=== PATIENT | male | born 1945 | race Caucasian/White ===

== ENCOUNTER 2023-12-26 04:27 | Emergency (ER) | payer MEDICARE, OTHER, SELFPAY ==
[2023-12-26 04:30] VITALS: BP 138/84
[2023-12-26 04:54] VITALS: BMI 27.7
[2023-12-26 05:07] VITALS: BP 135/77
[2023-12-26 06:00] VITALS: BP 128/81
--- NOTE | 2023-12-26 06:05 | ED.GENMED ---
History of Present Illness
General
Chief Complaint: Skin Problem
Time Seen by Provider: 12/26/23 04:57
Travel History
Have you had any contact with someone who has COVID-19?: No
Do you have any symptoms of coronavirus? Fever > 100 degrees, chills, cough, shortness of breath, sore throat, loss of taste or smell, muscle aches, or headache?: No
History of Present Illness
History of Present Illness:
HPI: The patient presents with bilateral arm pain, pain to the back of the neck, but no chest pain. He thinks his symptoms could be related to neuropathic type pain. His primary care doctor put him on gabapentin 100 mg twice a day but then
increased it to 300 mg last evening at 10 PM. He states that he cannot sleep but the says that he has been sleeping while in the ED. He did have some concern for disseminated shingles. He also had a GI bleed while on Eliquis for A-fib a
couple of months ago. He has been having trouble sleeping. He states he had unremarkable blood work recently.
EXAM:
GENERAL: Well appearing in no distress, resting comfortably
HEENT: Moist oral mucosa
CARDIOVASCULAR: No murmurs, normal heart rate, regular rhythm, No chest wall tenderness
PULMONARY: No respiratory distress, breath sounds are clear and equal
ABDOMEN: Soft with no peritoneal signs, no tenderness
NEUROLOGIC: Excellent strength all extremities, no coordination deficits, strong distal peripheral nerve function to the upper extremities
PSYCHIATRIC: Appropriate mental status, normal insight and judgement
EXTREMITIES: Nontender, no edema, moves all extremities equally, strong radial pulses bilaterally
SKIN: No rash, no lesions, no evidence for shingles
TIME OF INITIAL ENCOUNTER: 6:05 AM
NUMBER AND COMPLEXITY OF PROBLEMS ADDRESSED AT THE ENCOUNTER
� Chronic conditions affecting care: History of A-fib, hyperlipidemia, GERD, has had PE
� Acute Exacerbation and/or Progression of Chronic Illness: This is an acute problem
� Differential Diagnosis includes: Neuropathy, cervical radiculopathy
AMOUNT AND/OR COMPLEXITY OF DATA TO BE REVIEWED AND ANALYZED
� I performed an independent evaluation of and my interpretation is:
EKG: Sinus 63, left axis deviation, lateral ST abnormality however this is unchanged from 05/12/2022, otherwise there are no new ST abnormalities
CT:
X-rays:
Laboratory Studies:
Other:
� Review of other/old records: The patient was here in 2021 with appendicitis
� Clinical information was obtained by an independent historian: I spoke to the at bedside at bedside
� Prescriptions/Medications Considered but not given: Consider steroids however the patient had a recent GI bleed and he wishes to hold off on steroids
� Further testing considered but not performed: No clear indication for MRI at this time as he has excellent motor function in all extremities. Offered and considered blood work over the patient declines stating that his recent
blood work including B12 levels
RISK OF COMPLICATIONS AND/OR MORBIDITY OR MORTALITY OF PATIENT MANAGEMENT
� Social determinants of health affecting care: Lives at home
� Discussion with other providers:
� Escalation of care including admission/observation vs risk of discharge considered: The patient appears to have neuropathic type of pain. He has no chest pain but EKG will be obtained as he has bilateral arm discomfort. He
has excellent function in all extremities. He has already increased his gabapentin appears very comfortable. Will hold off on steroids. I suggest that he try Tylenol as well. We also talked about possibly trying Benadryl/doxylamine for sleep at
night. EKG is unchanged from prior.
Past History
Past History
ED Past Medical History: GERD and Hypercholesterolemia
ED Past Surgical History: None
Social History
Tobacco: Non-smoker
Alcohol: None
Drug: None
Personal:
Living: with family
Employment: Retired
Phy Exam
Physical Exam
Physical Exam:
See HPI
Course
Orders/Labs/Results
Orders:
Orders
12/26/23 06:25
Electrocardiogram (*1) Urgent
Reason for Study: Chest Pain
EKG- Treatment ONCE
Vital Signs
Initial and Last Documented VS:
Initial Vital Signs
Temp Pulse Resp BP Pulse Ox
97.5 F 64 22 138/84 96
12/26/23 04:30 12/26/23 04:30 12/26/23 04:30 12/26/23 04:30 12/26/23 04:30
Last Documented Vital Signs
Temp Pulse Resp BP Pulse Ox
97.5 F 60 18 128/81 94
12/26/23 04:30 12/26/23 06:00 12/26/23 06:00 12/26/23 06:00 12/26/23 06:00
*Critical Care Note
Total Time (30-74mins, 75-104mins- exclusive of procedures): Not Applicable
ED Attending Note
-
Portions of this chart may have been created with voice recognition software.� Occasional wrong word or��sound alike� substitutions may have occurred due to the inherent limitations of voice recognition software.
Discharge Plan
Departure
Patient Disposition: Home (Routine Discharge)
Date of Disposition: 12/26/23
Time of Disposition: 06:39
Patient with high blood pressure during this ER visit?: Yes
Discharge Problem:
Neuropathic pain
Instructions: Neuropathic pain
Prescriptions:
No Action
multivitamin Tablet
1 tab PO DAILY
atorvastatin 10 mg Tablet
10 mg PO DAILY
coQ10 (ubiquinol) 100 mg Capsule
300 mg PO DAILY
pantoprazole 40 mg Tablet,Delayed Release (Dr/Ec)
40 mg PO BID
metoprolol succinate 25 mg Tablet Extended Release 24 Hr
12.5 mg PO HS
gabapentin 100 mg Tablet
100 mg PO BID
Rx Instructions:
MAY TAKE UP TO 300 BID
Eliquis 5 mg Tablet
5 mg PO BID
Referrals:
Jeffery Bustamante MD [Family Provider] -
Activity Restrictions/Additional Instructions:
The cause of your symptoms is unclear but may be related to her neuropathy. I recommend that you continue the 300 mg dose of gabapentin. You could also add Tylenol as well. Follow-up with your PMD and neurology.
Interventions
Interventions:
*Risk Screen - Suicide Last Done: 12/26/23 04:30
*General Assessment Last Done: 12/26/23 04:54
*Neglect/Abuse Screening Last Done: 12/26/23 04:30
ED- Fall Risk Assessment Last Done: 12/26/23 04:54
*ED COVID-19 Vaccine History Last Done: 12/26/23 04:54
ED-Skin Assessment Last Done: 12/26/23 04:54
Discharge Date and Time
Print Language: THAI
[2023-12-26 06:49] VITALS: BP 131/91
== END 2023-12-26 06:50 | disposition home or self-care (01) ==
LOC: EMR 04:27
PROVIDERS: EMERGENCY PHYSICIAN Emergency Medicine; FAMILY PHYSICIAN Family Medicine
DX: M79.2 Neuralgia and neuritis, unspecified (principal); K21.9 Gastro-esophageal reflux disease without esophagitis; E78.00 Pure hypercholesterolemia, unspecified; I48.91 Unspecified atrial fibrillation; Z79.01 Long term (current) use of anticoagulants; Z79.899 Other long term (current) drug therapy
CPT/HCPCS: 99283; 93005

== ENCOUNTER 2024-01-14 11:27 | Inpatient (IN) | payer MEDICARE, OTHER, SELFPAY ==
[2024-01-14] VITALS (50 sets, daily range): BP systolic 68–112; BP diastolic 54–85; BMI 29.3
[2024-01-14 08:47] LABS: % Basophils 0.3 % (0-2); % Immature Granulocytes 0.4 % (0-0.5); % Lymphocytes 23.1 % (20.5-51.1); % Monocytes 6.8 % (1.7-9.3); % Neutrophils 68.4 % (42.2-75.2); Absolute Eosinophils 0.1 10^3/uL (0-0.7); Absolute Lymphocytes 1.6 10^3/uL (1.2-3.4); Absolute Monocytes 0.5 10^3/uL (0.1-0.6); Absolute Neutrophils 4.7 10^3/uL (1.4-6.5); Hematocrit 46.6 % (39.0-52.0); Hemoglobin 15.8 g/dL (13.0-18.0); Mean Corp Hgb Conc. 33.9 g/dL (33.0-37.0); Mean Corpuscular Hgb 28.6 pg (27.0-31.0); Mean Corpuscular Volume 84.4 fL (80.0-94.0); Mean Platelet Volume 9.1 fL (7.4-10.4); Nucleated Red Blood Cells % 0 % (-); Platelet Count 333 10^3/uL (130-400); Red Blood Cell Count 5.52 10^6/uL (4.70-6.10); Red Cell Dist. Width 13.3 % (11.5-14.5); White Blood Cell Count 6.8 10^3/uL (4.8-10.8)
--- NOTE | 2024-01-14 08:53 | ED.GENMED ---
History of Present Illness
General
Chief Complaint: Breathing Problem
Source: patient and spouse
Time Seen by Provider: 01/14/24 07:44
Travel History
Have you had any contact with someone who has COVID-19?: No
Do you have any symptoms of coronavirus? Fever > 100 degrees, chills, cough, shortness of breath, sore throat, loss of taste or smell, muscle aches, or headache?: No
History of Present Illness
History of Present Illness:
78-year-old male who presents with a variety of complaints but most notably concerned about an 8 pound weight gain this week. Patient saw his primary care doctor a few days ago with cough and feeling weak. Primary care doctor heard some crackles
and started on antibiotics for pneumonia. He admits that his heart rate has been up and down and he was told to hold his metoprolol. Patient admits that he has had increasing shortness of breath with exertion. He also has felt generally weak. He
does have a history of pulmonary embolism and it was suspected that he had atrial fibrillation while he had his PEs. He is on Eliquis and has not missed any doses. He denies fevers. He denies leg swelling. No noted fever. The patient has also
been dealing with neuropathic symptoms and has seen neurology.
Past History
Past History
ED Past Medical History: Arrthythmia (Atrial fibrillation), GERD, Hypercholesterolemia and Other (Pulmonary embolism)
ED Past Surgical History: Appendectomy
Social History
Tobacco: Non-smoker
Alcohol: None
Drug: None
Personal:
Living: with family
Employment: Retired
Phy Exam
Physical Exam
Physical Exam:
CONSTITUTIONAL Patient alert and oriented to person, place and time. Well-appearing. Vital signs reviewed.
HEAD atraumatic, normocephalic.
EYES eyelids normal to inspection, Pupils equally round and reactive to light, Extraocular muscles intact, Conjunctiva normal, Sclera normal.
NECK normal range of motion, Trachea midline, no jugular venous distention.
RESPIRATORY CHEST No respiratory distress noted, Chest expansion equal, crackles at bilateral bases
CARDIOVASCULAR irregularly irregular and tachycardic
ABDOMEN abdomen nontender, Bowel sounds normal. No distention.
BACK normal inspection, no obvious deformities
UPPER EXTREMITY range of motion normal, Motor strength normal, no cyanosis, no edema.
LOWER EXTREMITY range of motion normal, Motor strength normal, no cyanosis, no edema.
NEURO Speech normal, No focal motor deficits, [place] coma scale 15, Memory normal, Cranial Nerves intact to screening exam.
SKIN skin warm, dry, and normal in color.
PSYCHIATRIC patient oriented to person place and time, Normal affect.
Scores
Heart Failure Risk
Heart Failure Risk Score: Yes
History of Stroke or TIA: No
History of intubation for respiratory distress: No
Heart rate on ED arrival >/= 110: Yes
SaO2 <90% on arrival on room air: No
HR >/=110 during 3min walk test (or too ill to perform test): Yes
ECG has acute ischemic changes: No
Urea >/=12mmol/L (BUN 33.6mg/dL): No
Serum CO2>/=35mmol/L: No
Troponin I or T elevated to ME Level (0.4mg/dL): No
NT-proBNP >/=5,000ng/L (5,000pg/ml): Yes
HF Risk Score: 3
Admission Status: HIGH RISK 15.9% Consider SNF treatment or admission to hospital
Course
Orders/Labs/Results
Orders:
Orders
01/14/24 07:54
Electrocardiogram (*1) Stat
Reason for Study: Other
Other Reason for Exam: sob
Cardiac Monitoring- Treatment ONCE
EKG- Treatment ONCE
01/14/24 08:08
CR Chest - 2 Views Urgent
Comment:
Reason For Exam: cough, sob
01/14/24 08:30
Complete Blood Count/With Diff Urgent
Comprehensive Metabolic Panel Urgent
NT-proBNP Urgent
Troponin I Urgent
01/14/24 08:53
Diltiazem 125 mg/125 ml Nss [Cardizem] 125 mg in 125 ml IV NOW
Initial dose in mg/hr, then titrate:: 5
Titrate to keep:: Heart rate 80-100 bpm
Titrate by mg/hr:: 5 mg/hr
Frequency of titrations (minutes):: 15
Maximum dose in mg/hr:: 15
Diltiazem HCl [Cardizem] 10 mg IV NOW STA
01/14/24 09:23
Vital Signs- Treatment ONCE
Frequency: q15m
01/14/24 10:39
Diltiazem HCl [Cardizem] 20 mg IV NOW STA
01/14/24 11:01
Admit/Transfer Patient As Directed
Co-Sign Provider:
Level of Care: Inpatient admission
Assign to:: IMU- Intermediate Care
Physician / Group: hosp
Diagnosis: A-fib with RVR
Reason for Hospitalization: A-fib with RVR
Expected length of stay greater than two midnights?: Yes
ELOS- Estimated Length of Stay in days: 3
I certify the patient meets the requirements for IP care: Yes
01/14/24 11:03
Code Status As Directed
Resuscitation Status: Full Code
01/14/24 11:11
Furosemide [Lasix] 20 mg IV NOW STA
Abnormal Lab Results
01/14/24
08:30
Sodium 129 L mmol/L
(135-145)
Potassium 5.2 H mmol/L
(3.5-5.1)
Chloride 94 L mmol/L
(98-107)
BUN 29 H mg/dl
(9-20)
Creatinine 1.4 H mg/dL
(0.7-1.3)
Glucose 110 H mg/dl
(70-99)
Troponin I 0.316 H* ng/ml
Albumin 3.3 L g/dl
(3.5-5.0)
01/14/24 08:30
01/14/24 08:30
Vital Signs
Initial and Last Documented VS:
Initial Vital Signs
Pulse Resp BP Pulse Ox
98 22 103/69 98
01/14/24 07:37 01/14/24 07:37 01/14/24 07:37 01/14/24 07:37
Last Documented Vital Signs
Temp Pulse Resp BP Pulse Ox
97.4 F 105 21 108/78 92
01/14/24 13:50 01/14/24 14:00 01/14/24 14:00 01/14/24 14:00 01/14/24 14:00
MDM/Problems Addressed
MDM/Problems Addressed:
Atrial fibrillation with RVR, congestive heart failure
*Radiology
Radiology exam reviewed: preliminary read by ED provider (Bilateral effusions, CHF)
*Pulse Oximetry
Patient hypoxic: no
*EKG
Interpreted by ED Provider?: Yes
Interpretation: abnormal
Comparison EKG: no comparison EKG present
Rate: tachycardiac
Rhythm: a-fib
[place]: normal axis
Ischemia: non-specific ST changes
*Child Welfare Social Worker Interpretation
Rate: tachycardiac
Interpretation: abnormal
Rhythm: a-fib
*Critical Care Note
Total Time (30-74mins, 75-104mins- exclusive of procedures): 45 minutes
Data Reviewed
Review of Other/Old Records Reveals: Other (Echocardiogram from August 2021 reviewed showing EF of 55 to 60%)
Source: patient
Prescriptions/Medications Considered But Not Given:
Consider digoxin. Will trial AV blockers and reassess
Further Testing Considered But Not Given:
Consider D-dimer patient already on Eliquis
Patient Management
Discussion with other providers: Hospitalist and Social Media Specialist
Escalation/DeEscalation of care consider admission/obs:
78-year-old male presents in rapid A-fib. Also suspect some congestive heart failure. Blood pressure sort of soft. At this point we will trial AV blockers to help that as rate slows down his time increases and his blood pressure comes up but will
Watch closely.
ED Attending Note
-
Portions of this chart may have been created with voice recognition software.� Occasional wrong word or��sound alike� substitutions may have occurred due to the inherent limitations of voice recognition software.
Discharge Plan
Departure
Patient Disposition: Admit
Date of Disposition: 01/14/24
Time of Disposition: 09:57
Admit to: Telemetry
Presentation/result/management discussed w/ accepting MD/DO: Hospitalist
Discharge Problem:
Atrial fibrillation with rapid ventricular response, CHF (congestive heart failure)
Interventions
Interventions:
*Risk Screen - Suicide Last Done: 01/14/24 07:37
*General Assessment Last Done: 01/14/24 07:37
*Neglect/Abuse Screening Last Done: 01/14/24 07:37
ED- Fall Risk Assessment Last Done: 01/14/24 08:04
*ED COVID-19 Vaccine History Last Done: 01/14/24 08:04
ED- Cardiac Assessment Last Done: 01/14/24 13:05
ED- Pulmonary Assessment Last Done: 01/14/24 08:04
[2024-01-14 09:09] LABS: ALT (SGPT) 23 U/L (0-50); AST (SGOT) 53 U/L (17-59); Albumin 3.3 g/dl (3.5-5.0); Alkaline Phosphatase 118 U/L (38-126); Blood Urea Nitrogen 29 mg/dl (9-20); Calcium 9.5 mg/dl (8.4-10.2); Carbon Dioxide 26 mmol/L (22-30); Chloride 94 mmol/L (98-107); Estimated Creatinine Clearance 43 ml/min; Glucose 110 mg/dl (70-99); Potassium 5.2 mmol/L (3.5-5.1); Sodium 129 mmol/L (135-145); Total Bilirubin 0.6 mg/dl (0.2-1.3); Total Protein 6.5 g/dl (6.3-8.2); eGFR 51.13
[2024-01-14 09:16] LABS: Troponin I 0.316 ng/ml
[2024-01-14 09:37] LABS: NT-proBNP 8830 pg/ml
[2024-01-14] MEDS: CARDIZEM 125 IV ×2 (09:37→20:12)
[2024-01-14] MEDS: CARDIZEM 10 MG IV (09:37)
[2024-01-14] MEDS: CARDIZEM 20 MG IV (10:51)
--- NOTE | 2024-01-14 11:14 | HPS.HSE ---
Family Physician
-
Family Physician: Jeffery Bustamante
Chief Complaint
-
Recent weight gain and treated by PCP for pneumonia last week
History of Present Illness
78-year-old male who presented to his primary care doctor approximately a week ago with cough and feeling weak and primary care doctor apparently had suspicion for underlying pneumonia he was placed on antibiotics in the form of Levaquin but has had
protracted continued coughing and noticed that his heart rate was up he had been told by his neurosurgical nurse practitioner to stop his metoprolol due to waxing and waning of his blood pressure throughout this. But then developed a increasing shortness of breath
especially on exertion. He is also feeling increasingly weak.
In September he had taken a trip down to [place] and on arrival there was noted to have a atypical chest pain that turned out to be consistent with subsegmental pulmonary emboli that by description underwent some form of thrombectomy unclear what
clot burden was at that time he may have also been diagnosed with a left lower extremity DVT that may have been precipitated by his lengthy trip he was told he was placed on Eliquis and has been on full anticoagulation since. Apparently at the time
of coming back from [place] he was noted to be back in sinus rhythm and there is no mention of any arrhythmia at the time of his presentation to his PCP this past week. He denies any fevers chills does relate some production of sputum that is
mostly clear but with some yellow flecks. In addition to the as noted above at the time of his diagnosis of PE he had another setback within that week and had to go back to a [facility] evaluation because he was noted to have an upper GI
bleed that turned out to be what by description it was a peptic ulcer and was treated with pantoprazole for which he remains on that he has had no recurrence of any dark or bloody stools since that time. In addition the patient has been having
complaints over the last several months of numbness and tingling in his arms and into his neck and was due to see neurology in follow-up ( Dr Pineda) and has a scheduled MRI in around February 04 this coming month. Believed to be of the cervical spine and
lumbar spine areas. He was originally prescribed amitriptyline for this but no result more recently has been on gabapentin and also no apparent results.
His most recent evaluation here at [facility] was in 2021 at which time he was diagnosed with initially a terminal ileitis turned out to be an acute appendix inflammation that required appendectomy by Dr. Lowery
Medical History
Past Medical History
Past Medical History: Reports Arrhythmia (Atrial fibrillation is seems to be recurrent but recently diagnosed in September at time of PE), GERD, HTN and Hypercholesterolemia
Additional Past Medical History:
Symptoms of neuropathy in his arms
History of peptic ulcer disease and bleeding after being placed on Eliquis in September
Past Surgical History: Reports Appendectomy and Tonsilectomy
Social History
Tobacco: Non-smoker
Alcohol: None
Drug: None
Personal:
Living: With Family
Employment: Retired
Family History
Family History: Not pertinent
Allergies / Home Medications
Allergies reflects when Allergies were last updated in [employer].
Home Medications with original date entered in [employer]
Allergy/Medication List:
Allergies
Allergy/AdvReac Type Severity Reaction Status Date / Time
No Known Allergies Allergy Verified 01/14/24 07:43
Home Medications
multivitamin 1 tab PO DAILY Supplement 05/11/22
atorvastatin 10 mg tablet 10 mg PO DAILY High cholesterol 05/12/22
coQ10 (ubiquinol) 100 mg capsule 300 mg PO DAILY 07/12/22
apixaban 5 mg tablet (Eliquis) 5 mg PO BID 12/26/23
gabapentin 100 mg tablet 100 mg PO BID 12/26/23
metoprolol succinate 25 mg tablet,extended release 24 hr 12.5 mg PO HS 12/26/23
pantoprazole 40 mg tablet,delayed release 40 mg PO BID 12/26/23
Review of Systems
-
History Source: Patient and Family
Constitutional: Reports Weight Gain (Weight gain of 8 pounds in last week) and Fatigue
EENT: Reports No Symptoms
Respiratory: Reports Cough
Cardiac: Reports No Symptoms
Abdomen/GI: Reports No Symptoms
Neurological: Reports Weakness and Numbness
Physical Exam
Vital Signs
Vital Signs
Pulse Resp BP Pulse Ox
124 28 100/78 96
01/14/24 10:51 01/14/24 10:01 01/14/24 10:51 01/14/24 10:01
Physical Exam
General: Well Developed
HEENT: NormoCephalic
Respiratory: Rales and Crackles
Cardiac: Irregular Rhythm and Tachycardia
GI: Soft and Non Tender
Skin: Warm
Neuro: Awake
Laboratory Results
-
01/14/24 08:30
01/14/24 08:30
Laboratory Results
Total Bilirubin 0.6 mg/dl (0.2-1.3) 01/14/24 08:30
AST 53 U/L (17-59) 01/14/24 08:30
ALT 23 U/L (0-50) 01/14/24 08:30
Alkaline Phosphatase 118 U/L (38-126) 01/14/24 08:30
Troponin I 0.316 ng/ml H* 01/14/24 08:30
Data Reviewed
-
Diagnostic Radiology: Image Personally Visualized and interpreted, Report Reviewed by me and Discussed with Physician
Lab Data: Labs Reviewed by me (proBNP over 8300/elevated troponin/0.316/creatinine up to 1.4 looks like his baseline is about 1.3 last taken 2021 BUN elevated 29/sodium 129)
Impression/Plan
-
78-year-old male who presented to his primary care doctor approximately a week ago with cough and feeling weak and primary care doctor apparently had suspicion for underlying pneumonia he was placed on antibiotics in the form of Levaquin but has had
protracted continued coughing and noticed that his heart rate was up he had been told by his neurosurgical nurse practitioner to stop his metoprolol due to waxing and waning of his blood pressure throughout this. But then developed a increasing shortness of breath
especially on exertion. He is also feeling increasingly weak.
In September he had taken a trip down to [place] and on arrival there was noted to have a atypical chest pain that turned out to be consistent with subsegmental pulmonary emboli that by description underwent some form of thrombectomy unclear what
clot burden was at that time he may have also been diagnosed with a left lower extremity DVT that may have been precipitated by his lengthy trip he was told he was placed on Eliquis and has been on full anticoagulation since. Apparently at the time
of coming back from [place] he was noted to be back in sinus rhythm and there is no mention of any arrhythmia at the time of his presentation to his PCP this past week. He denies any fevers chills does relate some production of sputum that is
mostly clear but with some yellow flecks. In addition to the as noted above at the time of his diagnosis of PE he had another setback within that week and had to go back to a [facility] evaluation because he was noted to have an upper GI
bleed that turned out to be what by description it was a peptic ulcer and was treated with pantoprazole for which he remains on that he has had no recurrence of any dark or bloody stools since that time. In addition the patient has been having
complaints over the last several months of numbness and tingling in his arms and into his neck and was due to see neurology in follow-up ( Dr Pineda) and has a scheduled MRI in around February 04 this coming month. Believed to be of the cervical spine and
lumbar spine areas. He was originally prescribed amitriptyline for this but no result more recently has been on gabapentin and also no apparent results.
His most recent evaluation here at [facility] was in 2021 at which time he was diagnosed with initially a terminal ileitis turned out to be an acute appendix inflammation that required appendectomy by Dr. Lowery
A/P:
Paroxysmal atrial fibrillation with rapid ventricular response
-Admit to intermediate care unit
-Continue on diltiazem drip BPL allowing
-May need short course of pressors
-Originally diagnosed in September of this year in [place] when found to have PE/been on beta-blockade since then presumed sinus rhythm
-Has been compliant with Eliquis anticoagulation for the last 4 months
-Had been on metoprolol succinate but discontinued due to swings in blood pressure last week over presumptive diagnosis of pneumonia
-Obtain 2D echocardiogram
-Cardiology consultation follows with Dr. Tipton
Unknown type of CHF
-Crackles, hyponatremia, 8 pound weight gain last week
-Possibly relation to RVR and new A-fib
-proBNP of 8800
-Trial of a small 'dose of furosemide IV BP allowing today with parameters
-Obtain 2D echocardiogram
-Cardiology consulted
Recent diagnosis of subsegmental pulm embolus in September
-May have been precipitated by A-fib then versus DVT left leg/left leg remains swollen
-Underwent thrombectomy
-Has been maintained on Eliquis and compliant
-Low suspicion for recurrence given his compliance
-Was due to follow-up with Dr. Chirinos as outpatient
Troponin elevation abnormal
-[place] to be nonischemic and precipitated by RVR /CHF
-Will trend
At time of diagnosis of PE and after being placed on anticoagulation developed bleeding peptic ulcer
-Has been on pantoprazole PPI since without signs of recurrence
-Continue PPI
Respiratory tract infection?
-Treated in the past week with Levaquin by PCP
-Questionable infiltrate in right base on chest x-ray
-No fever, no white count elevation
-Would hold off on antibiotic/obtain procalcitonin if elevated reconsider
Hyponatremia
-May be prerenal component from CHF
-Obtain urine osmolality and sodium
-Monitor BMP
-Fluid restriction
Acute on chronic kidney disease
-Baseline creatinine 1.3 based on prior levels presently 1.4 with a BUN elevation of 29
Upper extremity neuropathies for months
-Unclear etiology being followed by outpatient neurology
-Scheduled for outpatient MRI of the cervical spine and lumbar and [place]
-Not much with results with either amitriptyline or gabapentin both will be held
Prior comorbidities:
History of terminal ileitis and also appendectomy
Bladder outlet obstruction
COVID-19 in 2020
DVT prophylaxis with Eliquis/venous pumps
Full CODE STATUS
--- NOTE | 2024-01-14 12:29 | CON.CAR ---
Consultation
Consultation Request
Date/Time Consultation Requested: Jan 14 2024
Date/Time Consultation Performed: Jan 14 2024
Requesting Provider: Dr Gee
Performing Provider: Dr White
Reason for Consultation: AFib, HF
Medical History
-
Chief Complaint: Shortness of breath
History of Present Illness:
Harvey is a 78-year-old male known to cardiology with hx of HTN, Hyperlipidemia, recent b/l PE, PAFib, prior ulcer with EGD who presented to his PCP approximately a week ago with cough and feeling weak. He was treated by PCP empirically for PNA and
placed on Levaquin. He did not feel better. He also has been seeing neuro Dr Pineda about possible neuropathy in his face and arms and felt that his beta leanne was contributing and stopped this. When he called the tuberculosis specialist office complaining of
being weak and dizzy and he was told to remain off beta leanne until after treatment of his PNA was completed.
He was treated for PE b/l and acute left DVT in [place] in Sep 2023 and has been on Eliquis since. He also had some aFib at that time. He was treated with focal thrombotic therapy. Echo was unremarkable for RV dysfunction. He was seen by GI after
having bleeding ulcers and Eliquis was held and then resumed. At the last office visit with Dr Tipton in November 2023 he was recommended lifelong anticoagulation if no further bleeding.
Cardiology was consulted for AFib with RVR, hypotension and possible HF noted in ER.
Past Medical history:
B/L PE, left DVT
PaFib
HTN
Hyperlipidemia
Possible neuropathy UE
peptic ulcer
GERD
Tonsillectomy/left ankle surgery
Acute appendix inflammation that required appendectomy by Dr. Lowery 2021
Social History
Tobacco: Non-Smoker
Alcohol: None
Drug: None
Personal: (60 yrs!)
Employment: Retired
Family History
Family History: Reviewed & Not Pertinent
Allergies / Home Medications
Allergy/AdvReac Type Severity Reaction Status Date / Time
No Known Allergies Allergy Verified 01/14/24 07:43
�Medication �Instructions �Recorded �Confirmed �Type
multivitamin 1 tab PO DAILY Supplement 05/11/22 01/14/24 History
apixaban 5 mg tablet (Eliquis) 5 mg PO BID 12/26/23 01/14/24 History
metoprolol succinate 25 mg 12.5 mg PO HS 12/26/23 01/14/24 History
tablet,extended release 24 hr
pantoprazole 40 mg tablet,delayed 40 mg PO DAILY 12/26/23 01/14/24 History
release
acetaminophen 325 mg tablet 325 mg PO Q4HPRN PRN mild pain 01/14/24 01/14/24 History
(Tylenol)
levofloxacin 500 mg tablet 500 mg PO DAILY 01/14/24 01/14/24 History
pregabalin 75 mg capsule (Lyrica) 75 mg PO BID 01/14/24 01/14/24 History
Review of Systems
-
History Source: Patient
All other systems: Negative unless noted
Constitutional: Weight Gain
Respiratory: Trouble Breathing
Physical Exam
Vital Signs
Pulse Resp BP Pulse Ox
96 21 92/81 94
01/14/24 12:15 01/14/24 12:15 01/14/24 12:15 01/14/24 12:15
Physical examination:
General: No acute distress, AAOX3
Neck: Negative JVD
Heart: Iregularly irregular, Negative S3 positive S1/S2, Negative S4, No murmur
Lungs:Negative wheezes. Rales and rhonchi
Abd: Positive BS, NT/ND, neg rebound/rigidity/guarding
Ext: Negative cyanosis/clubbing/edema
Neuro: nonfocal
Lab Results
01/14/24 08:30
01/14/24 08:30
Troponin I 0.316 ng/ml H* 01/14/24 08:30
Bye-K-Koikhhsqdav Pept 8830 pg/ml 01/14/24 08:30
Impression / Plan
-
.
Primary tuberculosis specialist: Dr Tipton
Impression:
Respiratory failure
Acute HF
AFib with RVR
Likely nonMI troponin elevation
B/L PE, left DVT
HTN
Hyperlipidemia
Possible neuropathy UE
Hx peptic ulcer /GERD
Plan:
IV Cardizem
Continue oral Metoprolol
Continue Eliquis
Possible cardioversion this admit prior to d/c. He has been therapeutic with Eliquis and compliant at least 4 weeks
Check echo
Cont medical therapy of nonMI trop elevation
IV diuresis. His wt is up 8 lbs since last week he states. pBNP 8800
Monitor cr with diuresis
Prior service to eval for infection.
Discussed with via phone
Discussed with nursing and primary service.
Data Reviewed
-
EKG: Tracing Personally Visualized and interpreted
Labs: Labs Reviewed by me
Old Records: Reviewed
[2024-01-14] MEDS: LASIX 20 MG IV (15:53)
--- NOTE | 2024-01-14 19:01 | PTCARENOTE ---
Received patient from ED. Patient was able stand and pivot to the bed. LUIS ANGEL MILLIGAN. with patient. Cardizem gtt @ 10mg/hr, HR >120 most of the times. Admission done, after admission finished, increased Cardizem to 15mg/hr due to HR at 141.
Passing report to coming RN. Patient able to order dinner. Oriented to room. Call mcdaniel in reach.
[2024-01-14] MEDS: ELIQUIS 5 MG PO (19:54)
[2024-01-14] MEDS: PROTONIX 40 MG PO (19:54)
[2024-01-14] MEDS: TOPROL XL PO (20:47)
--- NOTE | 2024-01-14 20:47 | PTCARENOTE ---
pt still on cardizem gtt at 15ml/hr, rates still 110s-130. BP softer 89/69. notified Dr. White, okay to hold HS dose of metoprolol. at bedside with many questions, answered questions to bed of ability. pt also reports to this RN new burning
with urination. notified Rob DIETZ, awaiting orders.
[2024-01-14 21:07] LABS: Troponin I 0.366 ng/ml
[2024-01-14 21:09] LABS: Procalcitonin < 0.05 ng/ml (0.0-0.25)
[2024-01-14 21:20] LABS: Osmolality Urine 229 mOsm/kg (300-900)
[2024-01-14 21:25] LABS: Urine Albumin 1+ (Neg - Trace); Urine Bilirubin Negative (Negative); Urine Character Clear (Clear); Urine Color Yellow; Urine Glucose Negative (Negative); Urine Ketone Negative (Negative); Urine Leukocyte Negative (Negative); Urine Nitrite Negative (Negative); Urine Occult Blood Trace (Negative); Urine Specific Gravity 1.005 (<1.030); Urine Urobilinogen Negative (Neg - 1+)
[2024-01-14 21:36] LABS: Urine Sodium 18 mmol/L (30-90)
[2024-01-14 21:37] LABS: Urine Red Blood Cell 0-2 /HPF (0-2); Urine White Cell 0-2 /HPF (0-5)
[2024-01-14] MEDS: TYLENOL 650 MG PO (21:40)
--- NOTE | 2024-01-14 23:32 | PTCARENOTE ---
Addendum entered by lGen Mullins RN 01/15/24 01:19:
75mg lyrica given x1- pt advised to speak to attending about medication regime in the AM.
Original Note:
pt still complaining of a burning pain to bilateral arms, legs, chest, face, back of head. pt states he has had this burning pain since November, trialed on gabapentin with no results. pt states he was started on lyrica. pt was given tylenol with no
effect. notified Rob DIETZ- awaiting orders.
[2024-01-15] VITALS (18 sets, daily range): BP systolic 86–121; BP diastolic 62–85
[2024-01-15] MEDS: LYRICA 75 MG PO ×3 (01:18→20:51)
[2024-01-15 04:05] LABS: Hematocrit 40.9 % (39.0-52.0); Mean Corp Hgb Conc. 34.2 g/dL (33.0-37.0); Mean Corpuscular Hgb 28.3 pg (27.0-31.0); Mean Corpuscular Volume 82.8 fL (80.0-94.0); Mean Platelet Volume 9.2 fL (7.4-10.4); Platelet Count 331 10^3/uL (130-400); Red Blood Cell Count 4.94 10^6/uL (4.70-6.10); Red Cell Dist. Width 13.2 % (11.5-14.5)
[2024-01-15 04:35] LABS: Blood Urea Nitrogen 31 mg/dl (9-20); Calcium 8.8 mg/dl (8.4-10.2); Carbon Dioxide 23 mmol/L (22-30); Chloride 98 mmol/L (98-107); Estimated Creatinine Clearance 46 ml/min; Glucose 94 mg/dl (70-99); Potassium 5.4 mmol/L (3.5-5.1); Sodium 127 mmol/L (135-145); eGFR 55.88
[2024-01-15 04:36] LABS: Troponin I 0.294 ng/ml
[2024-01-15] MEDS: CARDIZEM 125 IV (04:47)
--- NOTE | 2024-01-15 06:32 | PTCARENOTE ---
pt heart monitor alarming asystole- went into room and patient sleeping, 6 second pause measured. pt with asymptomatic. EKG done- showing sinus josé miguel. cardizem gtt turned off. notified covering BUILDING INSPECTION ENGINEER.
[2024-01-15] MEDS: PROTONIX 40 MG PO ×2 (08:40→20:51)
[2024-01-15] MEDS: LIPITOR 10 MG PO (08:40)
[2024-01-15] MEDS: ELIQUIS 5 MG PO ×2 (08:40→20:51)
[2024-01-15] MEDS: DUONEB 3 ML INH (08:44)
--- NOTE | 2024-01-15 09:34 | W.PN.CARDCBS ---
Today's Communication / Plan
-
Cont IV diuresis
Check echo
Cont Eliquis
Impression / Plan
-
.
Primary safety grooving machine operator: Dr Tipton
Impression:
Respiratory failure
Acute HF
AFib with RVR, spontaneous conversion AM January 14 with 6 sec conversion pause
Likely nonMI troponin elevation peak 0.36
B/L PE, left DVT
HTN
Hyperlipidemia
Possible neuropathy UE/face
Hx peptic ulcer /GERD
Plan:
IV Cardizem stopped.
Resume oral Metoprolol if HR remains stable.
6 sec conversion pause while sleeping 6AM January 14.
Continue Eliquis
Echo pending.
Cont medical therapy of nonMI trop elevation, peak 0.36
resume IV diuresis at 40 mg IV daily. His wt was up 8 lbs since last week he states. pBNP 8800 on admit
2L out last 24 hr.
Monitor cr with diuresis
Check wts
Primary service to eval for infection.
Consider neuro eval of possible neuropathy
Discussed with via phone last 24 hrs
Discussed with nursing.
Progress Note - Folded Towel Machine Operator
Subjective
Date of Service: January 15, 2024
Pt seen and examined. Some burning face and chest pain. No shortness of breath. He slept poorly.
Objective
Labs:
01/15/24 03:20
01/15/24 03:20
Labs
Hgb 14.0 g/dL (13.0-18.0) 01/15/24 03:20
Hct 40.9 % (39.0-52.0) 01/15/24 03:20
Plt Count 331 10^3/uL (130-400) 01/15/24 03:20
Sodium 127 mmol/L (135-145) L 01/15/24 03:20
Potassium 5.4 mmol/L (3.5-5.1) H 01/15/24 03:20
BUN 31 mg/dl (9-20) H 01/15/24 03:20
Creatinine 1.3 mg/dL (0.7-1.3) 01/15/24 03:20
Glucose 94 mg/dl (70-99) 01/15/24 03:20
Troponins
01/14/24 01/14/24 01/15/24
08:30 20:17 03:20
Troponin I 0.316 H* 0.366 H* 0.294 H*
Vital Signs and I&O:
Vital Signs
Temp Pulse Resp BP Pulse Ox
97.7 F 59 14 113/67 95
01/15/24 07:19 01/15/24 08:47 01/15/24 08:47 01/15/24 06:00 01/15/24 08:47
Vital Signs
Temp Pulse Resp BP Pulse Ox
97.7 F 59 14 113 95
01/15/24 07:19 01/15/24 08:47 01/15/24 08:47 01/15/24 06:00 01/15/24 08:47
Intake & Output
01/13/24 01/14/24 01/15/24 01/16/24
06:59 06:59 06:59 06:59
Output Total 1899 / 1899 100 / 100
Balance -1900 / -1900 -100 / -100
Physical Exam
Physical Exam
General: No acute distress, AAOX3
Neck: Negative JVD
Heart: Regular, Negative S3 positive S1/S2, Negative S4, No murmur
Lungs: CTA b/l, negative wheezes/rales/rhonchi
Abd: Positive BS, NT/ND, neg rebound/rigidity/guarding
Ext: Negative cyanosis/clubbing/edema
Neuro: nonfocal
[2024-01-15] MEDS: LASIX 40 MG IV (10:41)
--- NOTE | 2024-01-15 13:47 | W.PN.HOSP.TC ---
Today's Communication/Plan
-
see outlined plan
Assessment / Plan
Assessment / Plan
Assessment:
Acute hypoxic respiratory failure - resolved on RA
Paroxysmal atrial fibrillation with rapid ventricular response
- briefly required IV Cardizem
- now resume HS metoprolol
- continue Eliquis
- Echo: pending
- Cards following
Acute CHF - unknown type
- IV Lasix - requires intensive monitoring of I/Os, weights, lytes
Non-OH trop elevation (nonischemic myocardial injury)
- peaked at .366
Hypervolemic hyponatremia
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
- follow BMP with IV Lasix
- continue oral fluid restrictions
Recent diagnosis of subsegmental pulm embolus in September
- s/p thrombectomy
- continue Eliquis
- OP Pulm follow up
hx of PUD exacerbated by Eliquis
- this was in [place]
- on PPI daily
Respiratory tract infection?
- Treated in the past week with Levaquin by PCP
- procal negative, no fever or leukocytosis; monitor off Abx
Upper extremity neuropathies for months
- Unclear etiology being followed by outpatient neurology
- Scheduled for outpatient MRI of the cervical spine - will add T spine and complete here
- outpatient EMG
- continue Pregabalin; no prior improvement with Gabapentin or amitriptyline
History of terminal ileitis and also appendectomy
Bladder outlet obstruction hx
COVID-19 in 2020
DVT ppx: Eliquis
Code: Full
Anticipated Discharge: 24 - 48 hours
Subjective/Interval History
-
Date of Service: January 15, 2024
reports breathing improving
no cp
reports chronic neuropathy type symptoms being evaluated by outpatient neuro with MRI and EMG planned; requesting his home Lyrica
Objective Data
-
Labs:
Laboratory Results
05/20/24
03:20
WBC 8.0
Hgb 14.0
Hct 40.9
Plt Count 331
Sodium 127 L
Potassium 5.4 H
Chloride 98
Carbon Dioxide 23
BUN 31 H
Creatinine 1.3
Glucose 94
Calcium 8.8
Vital Signs:
Vital Signs
Temp Pulse Resp BP Pulse Ox
97.5 F 64 16 116/74 92
01/15/24 11:24 01/15/24 13:00 01/15/24 13:00 01/15/24 13:00 01/15/24 13:09
I&O
01/14/24 01/15/24 01/16/24
06:59 06:59 06:59
Output Total 1900 / 1900 1400 / 1400
Balance -1900 / -1900 -1400 / -1400
Physical Exam
-
General: No Apparent Distress
HEENT: Normocephalic and Atraumatic
Respiratory: Negative Wheezes
Cardiac: Regular Rhythm and S1/S2
GI: Soft
Genito-urinary: No Costovertebral Tender
Neuro: AO x 3
Hematologic / Lymphatic: No Lymphadenopathy
Psych: Calm
Data Reviewed
-
Total Time Spent with Patient (in minutes): 45
Labs: Labs Reviewed by me
--- NOTE | 2024-01-15 14:30 | CM ---
Patient with Dx Paroxysmal atrial fibrillation, CHF. Room air. Receiving IV Lasix.
Met with patientand his Denae;
the patient resides with his in a 2 story house with 1 JODI.
The patient has been independent in ADLs and ambulation.
His only DME is a shower chair.
No prior VN or SNF.
PCP - Jeffery Bustamante
Pharmacy - [facility]
Offered VN and patient declined.
No CM d/c needs identified.
Plan home.
--- NOTE | 2024-01-15 15:14 | PTCARENOTE ---
Rec'd pt this AM. Very anxious, a few somatic complaints. Pt was wheezing and RN did contact RT to give neb with relief. Pt provided living will but wants to remain full code for now. vital signs stable. remains in NSR> downgraded to tele.
--- NOTE | 2024-01-15 16:48 | TRANSFER ---
Pt downgraded to tele. report given to CLARE nelson on . Pt transferrred via wheelchair
[2024-01-15] MEDS: TOPROL XL 12.5 MG PO (22:51)
[2024-01-16] VITALS (8 sets, daily range): BP systolic 91–124; BP diastolic 62–78; PULSE 67–81; O2SAT 93–94; BMI 27.6
[2024-01-16 05:49] LABS: Hematocrit 44.4 % (39.0-52.0); Hemoglobin 14.9 g/dL (13.0-18.0); Mean Corp Hgb Conc. 33.6 g/dL (33.0-37.0); Mean Corpuscular Hgb 28.4 pg (27.0-31.0); Mean Corpuscular Volume 84.6 fL (80.0-94.0); Mean Platelet Volume 8.9 fL (7.4-10.4); Platelet Count 335 10^3/uL (130-400); Red Blood Cell Count 5.25 10^6/uL (4.70-6.10); Red Cell Dist. Width 13.2 % (11.5-14.5); White Blood Cell Count 6.8 10^3/uL (4.8-10.8)
[2024-01-16 06:09] LABS: Blood Urea Nitrogen 28 mg/dl (9-20); Calcium 8.9 mg/dl (8.4-10.2); Carbon Dioxide 29 mmol/L (22-30); Chloride 98 mmol/L (98-107); Estimated Creatinine Clearance 50 ml/min; Glucose 85 mg/dl (70-99); Potassium 4.6 mmol/L (3.5-5.1); Sodium 130 mmol/L (135-145); eGFR > 60.00
[2024-01-16] MEDS: PROTONIX 40 MG PO ×2 (08:32→21:14)
[2024-01-16] MEDS: LASIX 40 MG IV (08:33)
[2024-01-16] MEDS: ELIQUIS 5 MG PO ×2 (08:33→21:13)
[2024-01-16] MEDS: LIPITOR 10 MG PO (08:33)
[2024-01-16] MEDS: LYRICA 75 MG PO ×2 (08:33→21:14)
--- NOTE | 2024-01-16 10:20 | PN.CDI ---
CDI
- -
CDI:
Physician Documentation Request
Admit Date: 01/14/24 11:27
Dear Doctor Surya,
Clinical Indicators:
Documentation in progress notes on 01/14 includes the diagnosis of respiratory failure.
'Acute hypoxic respiratory failure - resolved on RA'
ED record states 'presents with variety of complaints but most notably concerned about an 8 pound weight gain this week....Patient admits that he has had increasing shortness of breath with exertion.'
ED respiratory assessment 'No respiratory distress noted, Chest expansion equal, crackles at bilateral bases'
Recognized standard criteria for respiratory failure includes:
(Source: [facility] Hospitalist Jun 2013)
ABGs (1 or more)
�PO2 <60 or RA SpO2 <91%
�PcO2 >50 and pH <7.35
�pO2 decrease or pcO2 increase by 10 mmHg from baseline if known Symptoms:
�Tachypnea, SOB, dyspnea
�Pallor or cyanosis
�Anxiety or restlessness
�Use of accessory muscles
�Retractions (grunting in newborns)
�Unable to speak in complete sentences
Supplemental O2 requirement of 40% (5LPM) or more Intubation is not required
Based on the above information and the recognized standard for respiratory failure could you please verify this diagnoses is still accurate and reflective of the patient�s condition to ensure quality of the medical record.
Please clarify in the Progress Notes:
�Respiratory failure is/was present and is a clinical diagnosis based on (please include this additional support in the medical record)
�After study respiratory failure has been ruled out
�Other
Use of terms such as suspected, likely, concern for, or probable (associated with a specific diagnosis that is being evaluated, monitored, or treated as if it exists) are acceptable and can be coded in the inpatient setting, when documented at the
time of discharge.
Thank you,
Clarice Garcia RN, BSN
CDI Specialist
tiger text
Please use your independent medical judgment in providing your response.
--- NOTE | 2024-01-16 10:54 | W.PN.CARDCBS ---
Addendum entered and electronically signed by Anatoliy Ge MD 01/16/24 13:47:
I saw and examined the patient.
The NURSING ASSOCIATE or PA's note was reviewed and I agree with the note.
Comment: General: Well developed, well nourished in NAD.
Neck: Supple, no JVD, HJR, carotids +2 B/L, no bruits bilaterally.
Heart: Non displaced PMI, RRR, no murmurs, No S3, S4, no rubs.
Lungs: Scattered rhonchi
Extremities: No clubbing, cyanosis or edema bilaterally.
Neuro: Grossly nonfocal, awake, alert and oriented x3.
He has improved but does have dyspnea on exertion. Also complains of numbness in hands and feet and is getting MRI. Consider change to oral Lasix on 01/16. Consider outpatient amyloid workup with PYP scan.
Original Note:
Today's Communication / Plan
-
Continue IV diuresis for another 24 hours. Then consider oral Lasix
Patient maintaining sinus rhythm
Continue Toprol and Eliquis
Impression / Plan
-
.
PCP: Jeffery Bustamante
Primary run lead: Dr Tipton
Impression:
Presented 01/14/2024 with cough, weakness
Respiratory failure
Acute HF
AFib with RVR, spontaneous conversion AM January 14 with 6 sec conversion pause
Abnormal troponin, suspect nonischemic myocardial injury due to heart failure and A-fib. Peak 0.36
B/L PE, left DVT
HTN
Hyperlipidemia
Possible neuropathy UE/face
Hx peptic ulcer /GERD
Echo 01/15/2024: EF 50 to 55%, mild concentric LVH. GLS is -17.1%. Mild MR, mild AI, mild TR
Echo 09/20/2021: EF 55 to 60%, mild AI, mild TR, mild MR, mildly dilated aortic root
Plan:
Presented 01/14/2024 with cough, weakness with atrial fibrillation with rapid ventricular response and acute hypoxic respiratory failure
Paroxysmal atrial fibrillation with rapid ventricular response on arrival.
Spontaneously converted to sinus rhythm with 6 sec conversion pause while sleeping 6AM January 14.
IV Cardizem stopped. Resumed oral Metoprolol 12.5 mg on 01/15/24
Remains in sinus rhythm with stable heart rate
Continue Eliquis. Hgb stable 14.9
Echo stable as noted above.
Abnormal troponin, peaked at 0.36. Suspect nonischemic myocardial injury secondary to atrial fibrillation with rapid ventricular response and acute heart failure. Cont medical therapy
Heart failure with preserved ejection fraction. pBNP 8800 on admit
Weight down 11 pounds since admission.
-3180 ml since admission
MRI of thoracic and C-spine 01/15/2024 shows moderate bilateral pleural effusions. Will continue with diuresis
Continue IV diuresis at 40 mg IV daily. With likely transition to oral Lasix within 24 hours
Monitor cr with diuresis, currently 1.2
Check wts
Primary service to eval for infection. Was treated for pneumonia as outpatient on Levaquin
Consider neuro eval of possible neuropathy; primary service has ordered MRI of cervical and thoracic spine.
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
levels.
Primary service has consulted Neurosurgery
Following with neurology with EMG as outpatient.
HPI 01/14/24:
Harvey is a 78-year-old male known to cardiology with hx of HTN, Hyperlipidemia, recent b/l PE, PAFib, prior ulcer with EGD who presented to his PCP approximately a week ago with cough and feeling weak. He was treated by PCP empirically for PNA and
placed on Levaquin. He did not feel better. He also has been seeing neuro Dr Pineda about possible neuropathy in his face and arms and felt that his beta leanne was contributing and stopped this. When he called the run lead office complaining of
being weak and dizzy and he was told to remain off beta leanne until after treatment of his PNA was completed.
He was treated for PE b/l and acute left DVT in [place] in Sep 2023 and has been on Eliquis since. He also had some aFib at that time. He was treated with focal thrombotic therapy. Echo was unremarkable for RV dysfunction. He was seen by GI after
having bleeding ulcers and Eliquis was held and then resumed. At the last office visit with Dr Tipton in November 2023 he was recommended lifelong anticoagulation if no further bleeding.
Cardiology was consulted for AFib with RVR, hypotension and possible HF noted in ER.
Progress Note - [place] Aide
Subjective
Date of Service: January 16, 2024
Objective
Labs:
01/16/24 05:12
01/16/24 05:12
Labs
Hgb 14.9 g/dL (13.0-18.0) 01/16/24 05:12
Hct 44.4 % (39.0-52.0) 01/16/24 05:12
Plt Count 335 10^3/uL (130-400) 01/16/24 05:12
Sodium 130 mmol/L (135-145) L 01/16/24 05:12
Potassium 4.6 mmol/L (3.5-5.1) 01/16/24 05:12
BUN 28 mg/dl (9-20) H 01/16/24 05:12
Creatinine 1.2 mg/dL (0.7-1.3) 01/16/24 05:12
Glucose 85 mg/dl (70-99) 01/16/24 05:12
Troponins
01/14/24 01/14/24 01/15/24
08:30 20:17 03:20
Troponin I 0.316 H* 0.366 H* 0.294 H*
Vital Signs and I&O:
Vital Signs
Temp Pulse Resp BP Pulse Ox
98.2 F 68 18 118/74 93
01/16/24 07:00 01/16/24 08:33 01/16/24 07:00 01/16/24 08:33 01/16/24 07:00
Vital Signs
Temp Pulse Resp BP Pulse Ox
98.2 F 68 18 118/74 93
01/16/24 07:00 01/16/24 08:33 01/16/24 07:00 01/16/24 08:33 01/16/24 07:00
Intake & Output
01/14/24 01/15/24 01/16/24 01/17/24
06:59 06:59 06:59 06:59
Intake Total 120 / 120
Output Total 1900 / 1900 1400 / 1400
Balance -1900 / -1900 -1280 / -1280
Physical Exam
Physical Exam
GEN: No distress, awake, Ox3 sitting up in chair on room air
HEENT: supple, anicteric, mmm
LUNGS: Mildly decreased at bases Rt >Lt otherwise CTA, no wheezes/rales
CV: Reg, S1/S2, 1/6 syst LSB murmur, no rubs or gallops
ABD: soft, BS+, NT/ND
EXT: No edema, clubbing or cyanosis
NEURO: Gross non-focal
SKIN: No rash, warm, dry, pink
--- NOTE | 2024-01-16 12:02 | W.PN.HOSP.TC ---
Addendum entered and electronically signed by Jasmeet London MD 01/16/24 12:07:
After study respiratory failure has been ruled out
Original Note:
Today's Communication/Plan
-
IV Lasix continues
NeuroSx eval for neuropathy and MRI findings
Assessment / Plan
Assessment / Plan
Assessment:
Acute hypoxic respiratory failure - resolved on RA
Paroxysmal atrial fibrillation with rapid ventricular response
- briefly required IV Cardizem
- now resume HS metoprolol
- continue Eliquis
- Echo: normal LV size/function, EF 55%, moderate LVH, mild MR, mild AR, mild TR
- Cards following
Acute CHF - unknown type
- IV Lasix - requires intensive monitoring of I/Os, weights, lytes
Non-[place] trop elevation (nonischemic myocardial injury)
- peaked at .366
Hypervolemic hyponatremia
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
- follow BMP with IV Lasix
- continue oral fluid restrictions
Hyperkalemia - resolved
Upper extremity neuropathies for months
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
- Neurosurg consulted to evaluate
- outpatient EMG
- continue Pregabalin; no prior improvement with Gabapentin or amitriptyline
Recent diagnosis of subsegmental pulm embolus in September
- s/p thrombectomy
- continue Eliquis
- OP Pulm follow up
hx of PUD exacerbated by Eliquis
- this was in [place]
- on PPI daily
Respiratory tract infection
- Treated in the past week with Levaquin by PCP
- procal negative, no fever or leukocytosis; monitor off Abx
History of terminal ileitis and also appendectomy
Bladder outlet obstruction hx
COVID-19 in 2020
DVT ppx: Eliquis
Code: Full
Anticipated Discharge: > 48 hours
Subjective/Interval History
-
Date of Service: January 16, 2024
neuropathy symptoms improving with Lyrica
denies any other complaints
Objective Data
-
Labs:
Laboratory Results
01/16/24
05:12
WBC 6.8
Hgb 14.9
Hct 44.4
Plt Count 335
Sodium 130 L
Potassium 4.6
Chloride 98
Carbon Dioxide 29
BUN 28 H
Creatinine 1.2
Glucose 85
Calcium 8.9
Vital Signs:
Vital Signs
Temp Pulse Resp BP Pulse Ox
97.9 F 72 18 104/68 96
01/16/24 11:00 01/16/24 11:00 01/16/24 11:00 01/16/24 11:00 01/16/24 11:00
I&O
01/15/24 01/16/24 01/17/24
06:59 06:59 06:59
Intake Total 120 / 120
Output Total 1900 / 1900 1400 / 1400
Balance -1900 / -1900 -1280 / -1280
Physical Exam
-
General: No Apparent Distress
HEENT: Normocephalic and Atraumatic
Respiratory: Negative Wheezes or Rales
Cardiac: Regular Rhythm and S1/S2
GI: Soft
Genito-urinary: No Costovertebral Tender
Neuro: AO x 3
Hematologic / Lymphatic: No Lymphadenopathy
Psych: Calm
Data Reviewed
-
Total Time Spent with Patient (in minutes): 51
Labs: Labs Reviewed by me
--- NOTE | 2024-01-16 13:47 | CON.NS ---
Documented by User: Libia Everett PA-C 01/16/24 15:14
Chief Complaint
-
UE neuropathy
History of Present Illness
This is a 78 y/o who initally presented to the ED for evaluation of SOB, cough, weakness and 8lb weight gain in the past week. He was found to be have acute HF and Afib. He also c/o numbness in his UE, LE and face for which he has been undergoing
outpatient follow up with Neurology. He was awaiting MRI cervical and thoracic spine as an outpatient. Imaging was obtained while he was admitted for treatment of the HF. Neurosurgery was consulted for input regarding MRI findings and patient's N/T.
He denies any chronic balance issues, no difficulty with dexterity. The symptoms in his feet have been present for 5 years and are present from the knee down and are described as a swelling sensation. He has numbness and tingling in his hands and
face that has been present for about a month. Symptoms are intermittent.
Review of Systems
-
all systems reviewed and are negative except for above HPI.
Medication and Allergies
Home Medications
Home Medications
�Medication �Instructions �Recorded
multivitamin 1 tab PO DAILY Supplement 05/11/22
apixaban 5 mg tablet (Eliquis) 5 mg PO BID Blood Clot 12/26/23
Prevention/Tx
metoprolol succinate 25 mg 12.5 mg PO HS Blood Pressure 12/26/23
tablet,extended release 24 hr
pantoprazole 40 mg tablet,delayed 40 mg PO DAILY GERD 12/26/23
release
acetaminophen 325 mg tablet 325 mg PO Q4HPRN PRN mild pain 01/14/24
(Tylenol)
levofloxacin 500 mg tablet 500 mg PO DAILY Infection 01/14/24
pregabalin 75 mg capsule (Lyrica) 75 mg PO BID Seizures 01/14/24
Allergies
Allergies
Allergy/AdvReac Type Severity Reaction Status Date / Time
No Known Allergies Allergy Verified 01/14/24 07:43
Physical Exam
-
Exam:
AA &O xs 3
CN 2-12 grossly intact
motor: 5/5
sensation intact to crude touch
no swelling/edema
respiratory: non labored breathing
skin: no rashes/lesions.
reflexes: normal at all stations
no cooper's or clonus.
Exams: MR Cervical Spine Without & W; MR Thoracic Spine W/o & With
MRI OF THE CERVICAL AND THORACIC SPINE WITHOUT AND WITH CONTRAST
CLINICAL INFORMATION: Neuropathy
COMPARISON: None.
PROCEDURE: MRI of the cervical and thoracic spine without and with gadolinium contrast was performed utilizing 1.5 T magnet.
FINDINGS:
Alignment: Stepwise retrolisthesis from C4 through C7
Vertebral body heights: Preserved
Marrow signal: Normal
Spinal cord: Normal in caliber and signal. No suspicious enhancement.
Posterior fossa/cervicomedullary junction: Normal
Prevertebral, paravertebral and retroperitoneal tissues: Moderate bilateral pleural effusions. There is a simple nonenhancing lipoma within the right paraspinal superficial soft tissues of the back centered at the T6 level measuring up to 4.6 x 1.8
x 5.5 cm.
At C2-3,
Disc: Normal
Spinal canal stenosis: None
Uncovertebral hypertrophy/facet arthropathy: None
Neural foraminal stenosis: None
At C3-4,
Disc: Desiccation with small right eccentric disc osteophyte complex
Spinal canal stenosis: None
Uncovertebral hypertrophy/facet arthropathy: Mild
Neural foraminal stenosis: Mild left and [id number] right
At C4-5,
Disc: Desiccation with broad-based disc osteophyte complex/uncovering
Spinal canal stenosis: Mild
Uncovertebral hypertrophy/facet arthropathy: Mild to moderate
Neural foraminal stenosis: Moderate bilateral
At C5-6,
Disc: Desiccation with broad-based disc osteophyte complex
Spinal canal stenosis: Mild
Uncovertebral hypertrophy/facet arthropathy: Mild to moderate
Neural foraminal stenosis: Moderate bilateral
At C6-7,
Disc: Desiccation with mild diffuse bulge/uncovering
Spinal canal stenosis: None
Uncovertebral hypertrophy/facet arthropathy: Mild
Neural foraminal stenosis: Mild to moderate right
At C7-T1,
Disc: Normal
Spinal canal stenosis: None
Uncovertebral hypertrophy/facet arthropathy: None
Neural foraminal stenosis: None
Mild multilevel degenerative disc disease throughout the thoracic spine. There are no prominent thoracic posterior disc protrusions. No high grade spinal canal or neural foraminal stenosis at the thoracic disc levels.
IMPRESSION:
Multilevel degenerative changes of the cervicothoracic spine as detailed, worst at C4-5 and C5-6 where disc and uncovertebral/facet disease contribute to mild spinal canal and moderate neural foraminal stenosis at these levels.
Simple nonenhancing lipoma within the right paraspinal superficial soft tissues of the back centered at the T6 level measuring up to 4.6 x 1.8 x 5.5 cm.
Moderate bilateral pleural effusions
Problems
-
Problem Status Onset Code
CHF (congestive heart failure) I50.9
Atrial fibrillation with rapid ventricular response I48.91
Assessment / Plan
-
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
--MRI reviewed. No significant central canal stenosis that would explain his symptoms
--Continue to follow up with neurology as an outpatient
--neurosurgery to sign off. No follow up recommended
--patient seen and examined with Dr. Allen.

Documented by User: Alea Allen MD 01/16/24 15:32
Problems
-
Problem Status Onset Code
CHF (congestive heart failure) I50.9
Atrial fibrillation with rapid ventricular response I48.91
Assessment / Plan
-
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
--MRI reviewed. No significant central canal stenosis that would explain his symptoms
--Continue to follow up with neurology as an outpatient
--neurosurgery to sign off. No follow up recommended
--patient seen and examined with Dr. Allen.
ATTENDING ATTESTATION:
Patient seen and examined. Patient with progressive bilateral upper extremity paresthesias which developed approximate 1 month prior. He has a known history of bilateral lower extremity paresthesias, in a stocking/glove pattern. MRI of the
cervical spine reviewed, which demonstrate multilevel cervical degenerative disc disease/spondylosis. However, there is no obvious evidence of cord compression, or signal change in the cord. Given this, unlikely that patient's upper extremity
symptoms are due to cervical spinal cord compression.
Recommend ongoing neurological workup via EMG/NCV, and to rule out other metabolic reasons/etiologies for patient's symptomatology.
No neurosurgical intervention is indicated at present time.
--- NOTE | 2024-01-16 14:22 | W.HF.CON ---
Heart Failure
- LV Function
Left ventricular function study result: LV Ejection fraction >40%
Ejection Fraction Percentage: 50-55
- ARNI
Patient already on ARNI: No
Heart Failure ARNI Not Indicated: LV Ejection Fraction >/= 40%
- ACEI/ARB
Patient already on ACEI/ARB: No
Heart Failure ACEI/ARB Not Indicated: LV Ejection Fraction > 40%
- Beta Ruperto
Patient already on Evidence Based Beta Ruperto: Yes
- Mineralocorticord Receptor Antagonist
Patient already on MRA: No
Heart Failure MRA Not Indicated: LV Ejection Fraction > 40%
- SGLT-2 Inhibitor
Patient already on SGLT-2 Inhibitor: No
Heart Failure SGLT-2 Inhibitor Not Indicated: LV Ejection Fraction >40%
- Afib Anticoagulation
Patient already on Anticoagulation for Afib: Yes
- NYHA CHF Classification
NYHA CHF Classification Level: Class III - Symptoms w/ min exertion, interferes w/ nml daily activity
- ACC/AHA Stage
ACC/AHA Stage: Stage C: Symptomatic Heart Failure
[2024-01-16] MEDS: TOPROL XL 12.5 MG PO (22:32)
[2024-01-17] VITALS (9 sets, daily range): BP systolic 79–128; BP diastolic 49–83; PULSE 70–84; BMI 27.1
[2024-01-17 05:39] LABS: Hematocrit 44.2 % (39.0-52.0); Hemoglobin 15.1 g/dL (13.0-18.0); Mean Corp Hgb Conc. 34.2 g/dL (33.0-37.0); Mean Corpuscular Hgb 28.2 pg (27.0-31.0); Mean Corpuscular Volume 82.6 fL (80.0-94.0); Mean Platelet Volume 8.7 fL (7.4-10.4); Platelet Count 363 10^3/uL (130-400); Red Blood Cell Count 5.35 10^6/uL (4.70-6.10); Red Cell Dist. Width 13.1 % (11.5-14.5); White Blood Cell Count 7.3 10^3/uL (4.8-10.8)
[2024-01-17 06:16] LABS: Blood Urea Nitrogen 28 mg/dl (9-20); Calcium 9.1 mg/dl (8.4-10.2); Carbon Dioxide 26 mmol/L (22-30); Chloride 97 mmol/L (98-107); Estimated Creatinine Clearance 54 ml/min; Glucose 89 mg/dl (70-99); Potassium 4.8 mmol/L (3.5-5.1); Sodium 131 mmol/L (135-145); eGFR > 60.00
[2024-01-17] MEDS: PROTONIX 40 MG PO ×2 (07:31→21:25)
[2024-01-17] MEDS: LIPITOR 10 MG PO (07:32)
[2024-01-17] MEDS: LYRICA 75 MG PO ×2 (07:32→21:25)
[2024-01-17] MEDS: ELIQUIS 5 MG PO ×2 (07:32→21:25)
[2024-01-17] MEDS: LASIX 40 MG IV (07:33)
[2024-01-17] MEDS: TYLENOL 650 MG PO (07:40)
--- NOTE | 2024-01-17 09:26 | PN.CDI ---
CDI
- -
CDI:
Physician Documentation Request
Admit Date: 01/14/24 11:27
Dear Doctor Surya,
H&P and progress notes state 'Acute on chronic kidney disease 3b'
Creatinine results:
Laboratory Tests
01/14/24 01/15/24 01/16/24
08:30 03:20 05:12
Creatinine 1.4 H 1.3 1.2
01/17/24
05:10
Creatinine 1.1
Criteria for DESTINY*
1 Increase in serum creatinine by > or = to 0.3 mg/dL (> or = to 26.5 micromol/L) within 48 hours, OR
2 Increase in serum creatinine to > or = to 1.5 times baseline, which is known or presumed to have occurred within 7 days, OR
3 Urine volume < 0.5 nL/kg/hour for six hours
Based on the above information and the recognized standard for DESTINY could you please verify this diagnoses is still accurate and reflective of the patient�s condition to ensure quality of the medical record.
Please clarify in the Progress Notes:
�DESTINY is/was present and is a clinical diagnosis based on (please include this additional support in the medical record)
�After study DESTINY has been ruled out
�Other
Use of terms such as suspected, likely, concern for, or probable (associated with a specific diagnosis that is being evaluated, monitored, or treated as if it exists) are acceptable and can be coded in the inpatient setting, when documented at the
time of discharge.
Thank you,
Clarice Garcia RN, BSN
CDI Specialist
tiger text
Please use your independent medical judgment in providing your response.
--- NOTE | 2024-01-17 09:36 | W.PN.CARDCBS ---
Addendum entered and electronically signed by Berhane White DO 01/17/24 13:35:
I saw and examined the patient.
The Supervisor [employer]'s note was reviewed and I agree with the note.
Comment:
Plan:
He was orthostatic this AM. Will hold additional diuresis.
He will take Lasix 20 mg as needed for weight gain as outpt
Could consider gentle IVF if needed
Monitor BMP
Outpt amyloid work up with labs and consideration for PYP scan
Discussed with pt and and with primary service.
Original Note:
Today's Communication / Plan
-
Hold additional diuresis for now.
Will send home on Lasix 20 mg as needed for weight gain
Check orthostatic vitals
Outpatient amyloid workup with labs and PYP scan
BMP in 7-10 days
Will arrange for outpatient cardiology follow-up
Impression / Plan
-
.
PCP: Jeffery Bustamante
Primary clinical scientist: Dr Tipton
Impression:
Presented 01/14/2024 with cough, weakness
Respiratory failure
Acute HF
AFib with RVR, spontaneous conversion AM January 14 with 6 sec conversion pause
Abnormal troponin, suspect nonischemic myocardial injury due to heart failure and A-fib. Peak 0.36
B/L PE, left DVT
HTN
Hyperlipidemia
Possible neuropathy UE/face
Hx peptic ulcer /GERD
Echo 01/15/2024: EF 50 to 55%, mild concentric LVH. GLS is -17.1%. Mild MR, mild AI, mild TR
Echo 09/20/2021: EF 55 to 60%, mild AI, mild TR, mild MR, mildly dilated aortic root
Plan:
Presented 01/14/2024 with cough, weakness with atrial fibrillation with rapid ventricular response and acute hypoxic respiratory failure
Patient feels dizzy/lightheaded with headache this morning. Weight is down additional 3 pounds. He thinks he may be dehydrated as he is below baseline weight. Hold on additional diuresis. Will check orthostatic vitals.
Paroxysmal atrial fibrillation with rapid ventricular response on arrival.
Spontaneously converted to sinus rhythm with 6 sec conversion pause while sleeping 6AM January 14.
IV Cardizem stopped. Resumed oral Metoprolol 12.5 mg on 01/15/24
Remains in sinus rhythm with stable heart rate
Continue Eliquis. Hgb stable 15.1
Echo stable as noted above. Outpatient amyloid workup with amyloid labs and PYP scan given.
Abnormal troponin, peaked at 0.36. Suspect nonischemic myocardial injury secondary to atrial fibrillation with rapid ventricular response and acute heart failure. Cont medical therapy
Heart failure with preserved ejection fraction. pBNP 8800 on admit
Weight down 14 pounds since admission. Current weight 183 lbs. Patient reports that he is below baseline weight of 185-189 lbs.
May be dehydrated due to overdiuresis. Hold on additional diuretics.
Will send home on Lasix 20 mg to take as needed for 3 pound weight gain overnight or 5 pound weight gain in 1 week. This was discussed in great detail with patient and his .
MRI of thoracic and C-spine 01/15/2024 shows moderate bilateral pleural effusions.
Monitor cr with diuresis, currently 1.1
Will need BMP in 7-10 days as outpt
Was treated for pneumonia as outpatient on Levaquin. Improved sx
Consider neuro eval of possible neuropathy; primary service has ordered MRI of cervical and thoracic spine.
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
levels.
Primary service has consulted Neurosurgery. They did not feel his symptoms were related to spinal cord compression and no intervention was warranted
Following with neurology with EMG/NCV as outpatient.
Plan was discussed with the patient, patient's , nursing and hospitalist.
HPI 01/14/24:
Harvey is a 78-year-old male known to cardiology with hx of HTN, Hyperlipidemia, recent b/l PE, PAFib, prior ulcer with EGD who presented to his PCP approximately a week ago with cough and feeling weak. He was treated by PCP empirically for PNA and
placed on Levaquin. He did not feel better. He also has been seeing neuro Dr Pineda about possible neuropathy in his face and arms and felt that his beta leanne was contributing and stopped this. When he called the clinical scientist office complaining of
being weak and dizzy and he was told to remain off beta leanne until after treatment of his PNA was completed.
He was treated for PE b/l and acute left DVT in [place] in Sep 2023 and has been on Eliquis since. He also had some aFib at that time. He was treated with focal thrombotic therapy. Echo was unremarkable for RV dysfunction. He was seen by GI after
having bleeding ulcers and Eliquis was held and then resumed. At the last office visit with Dr Tipton in November 2023 he was recommended lifelong anticoagulation if no further bleeding.
Cardiology was consulted for AFib with RVR, hypotension and possible HF noted in ER.
Progress Note - [employer] Pre [employer]er
Subjective
Date of Service: January 17, 2024
Patient seen and examined. Patient reports he has a mild headache. He feels dizzy/lightheaded particularly when he changes positions. He feels he is below his baseline weight which is generally 185-189 lbs.
Objective
Labs:
01/17/24 05:10
01/17/24 05:10
Labs
Hgb 15.1 g/dL (13.0-18.0) 01/17/24 05:10
Hct 44.2 % (39.0-52.0) 01/17/24 05:10
Plt Count 363 10^3/uL (130-400) 01/17/24 05:10
Sodium 131 mmol/L (135-145) L 01/17/24 05:10
Potassium 4.8 mmol/L (3.5-5.1) 01/17/24 05:10
BUN 28 mg/dl (9-20) H 01/17/24 05:10
Creatinine 1.1 mg/dL (0.7-1.3) 01/17/24 05:10
Glucose 89 mg/dl (70-99) 01/17/24 05:10
Troponins
01/14/24 01/15/24
20:17 03:20
Troponin I 0.366 H* 0.294 H*
Vital Signs and I&O:
Vital Signs
Temp Pulse Resp BP Pulse Ox
97.9 F 64 18 115/75 95
01/17/24 07:00 01/17/24 07:33 01/17/24 07:00 01/17/24 07:33 01/17/24 07:00
Vital Signs
Temp Pulse Resp BP Pulse Ox
97.9 F 64 18 115/75 95
01/17/24 07:00 01/17/24 07:33 01/17/24 07:00 01/17/24 07:33 01/17/24 07:00
Intake & Output
01/15/24 01/16/24 01/17/24 01/18/24
06:59 06:59 06:59 06:59
Intake Total 120 / 120 1200 / 1200
Output Total 1900 / 1900 1400 / 1400
Balance -1900 / -1900 -1280 / -1280 1200 / 1200
Physical Exam
Physical Exam
GEN: No distress, awake, Ox3 sitting up in chair on room air
HEENT: supple, anicteric, mmm
LUNGS: Mildly decreased at bases Rt >Lt otherwise CTA, no wheezes/rales
CV: Reg, S1/S2, 1/6 syst LSB murmur, no rubs or gallops
ABD: soft, BS+, NT/ND
EXT: No edema, clubbing or cyanosis
NEURO: Gross non-focal
SKIN: No rash, warm, dry, pink
[2024-01-17] MEDS: NSS 250 IV ×2 (11:00→15:14)
--- NOTE | 2024-01-17 11:00 | W.PN.HOSP.TC ---
Today's Communication/Plan
-
IVF and repeat orthos at 3pm; may need further IVF
holding Lasix
Assessment / Plan
Assessment / Plan
Assessment:
Acute hypoxic respiratory failure - resolved on RA
Paroxysmal atrial fibrillation with rapid ventricular response
- briefly required IV Cardizem
- now resume HS metoprolol
- continue Eliquis
- Echo: normal LV size/function, EF 55%, moderate LVH, mild MR, mild AR, mild TR
- Cards following
Acute HFpEF
- hold IV diuretics due to orthostasis and providing IVF
- repeat orthostatic VS this afternoon with considering for further IVF
- at discharge, likely will have low dose/prn Lasix
Non-KS trop elevation (nonischemic myocardial injury)
- peaked at .366
Hypervolemic hyponatremia
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
- follow BMP with IV Lasix
- continue oral fluid restrictions
Hyperkalemia - resolved
Upper extremity neuropathies for months
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
- Neurosurg consult appreciated; no intervention
- outpatient EMG is next diagnostic step
- continue Pregabalin; no prior improvement with Gabapentin or amitriptyline
Recent diagnosis of subsegmental pulm embolus in September
- s/p thrombectomy
- continue Eliquis
- OP Pulm follow up
hx of PUD exacerbated by Eliquis
- this was in [place]
- on PPI daily
Respiratory tract infection
- Treated in the past week with Levaquin by PCP
- procal negative, no fever or leukocytosis; monitor off Abx
History of terminal ileitis and also appendectomy
Bladder outlet obstruction hx
COVID-19 in 2020
DESTINY present now resolved
- likely related to diuresis
DVT ppx: Eliquis
Code: Full
Anticipated Discharge: Within 24 hours
Subjective/Interval History
-
Date of Service: January 17, 2024
orthostatic today with overdiuresis - he felt dizzy and lightheaded, + orthostatics
feeling a bit better now with fluids and rest
Objective Data
-
Labs:
Laboratory Results
01/17/24
05:10
WBC 7.3
Hgb 15.1
Hct 44.2
Plt Count 363
Sodium 131 L
Potassium 4.8
Chloride 97 L
Carbon Dioxide 26
BUN 28 H
Creatinine 1.1
Glucose 89
Calcium 9.1
Vital Signs:
Vital Signs
Temp Pulse Resp BP Pulse Ox
97.9 F 64 18 115/75 95
01/17/24 07:00 01/17/24 07:33 01/17/24 07:00 01/17/24 07:33 01/17/24 07:00
I&O
01/16/24 01/17/24 01/18/24
06:59 06:59 06:59
Intake Total 120 / 120 1200 / 1200
Output Total 1400 / 1400
Balance -1280 / -1280 1200 / 1200
Physical Exam
-
General: No Apparent Distress
HEENT: Normocephalic and Atraumatic
Respiratory: Negative Wheezes
Cardiac: Regular Rhythm and S1/S2
Musculoskeletal: No Edema
Neuro: AO x 3
Hematologic / Lymphatic: No Lymphadenopathy
Psych: Calm
Data Reviewed
-
Total Time Spent with Patient (in minutes): 41
Labs: Labs Reviewed by me
[2024-01-17] MEDS: TOPROL XL 12.5 MG PO (21:25)
[2024-01-18 03:47] VITALS: BP 107/71
[2024-01-18] MEDS: TYLENOL 650 MG PO ×2 (04:21→13:30)
[2024-01-18 06:12] LABS: Blood Urea Nitrogen 29 mg/dl (9-20); Calcium 8.9 mg/dl (8.4-10.2); Carbon Dioxide 29 mmol/L (22-30); Chloride 96 mmol/L (98-107); Estimated Creatinine Clearance 54 ml/min; Glucose 94 mg/dl (70-99); Potassium 4.6 mmol/L (3.5-5.1); Sodium 130 mmol/L (135-145); eGFR > 60.00
[2024-01-18] MEDS: LIPITOR 10 MG PO (07:21)
[2024-01-18] MEDS: LYRICA 75 MG PO (07:21)
[2024-01-18] MEDS: PROTONIX 40 MG PO (07:21)
[2024-01-18] MEDS: ELIQUIS 5 MG PO (07:21)
[2024-01-18 07:30] VITALS: BP 109/71
[2024-01-18 09:50] VITALS: BMI 27.2
[2024-01-18 10:15] VITALS: BP 101/64; BP 102/65; BP 94/63; PULSE 67; O2SAT 95
[2024-01-18 11:30] VITALS: BP 99/64
--- NOTE | 2024-01-18 13:18 | W.PN.CARDCBS ---
Addendum entered and electronically signed by Berhane White DO 01/18/24 17:41:
I saw and examined the patient.
The [employer]'s note was reviewed and I agree with the note.
Comment:
Plan:
He appears euvolemic. Blood pressure is stable.
Continue Lasix as an outpatient 20 mg as needed for weight gain. He will call with any weight gain of greater than 2 pounds in a day or 5 pounds in a week.
He will monitor his heart rate with his watch.
He will continue with Toprol and Eliquis and remains in sinus rhythm.
Outpatient amyloid workup and consideration for ischemic evaluation.
Discussed with his who was appreciative of explanation. He admits to considerable anxiety over his conditions.
Discussed with primary service.
Original Note:
Today's Communication / Plan
-
po lasix 20mg PRN
remains in SR. continue toprol, eliquis
OP amyloid workup and ischemic evaluation
Impression / Plan
-
.
PCP: Jeffery Bustamante
Primary track vehicle repairer: Dr Tipton
Impression:
Presented 01/14/2024 with cough, weakness
Respiratory failure
Acute HFpEF
AFib with RVR, spontaneous conversion AM January 14 with 6 sec conversion pause
Abnormal troponin, suspect nonischemic myocardial injury due to heart failure and A-fib. Peak 0.36
History of B/L PE, left DVT
HTN
Hyperlipidemia
Possible neuropathy UE/face
Hx peptic ulcer /GERD
Echo 01/15/2024: EF 50 to 55%, mild concentric LVH. GLS is -17.1%. Mild MR, mild AI, mild TR
Echo 09/20/2021: EF 55 to 60%, mild AI, mild TR, mild MR, mildly dilated aortic root
ECHO 01/15/24: EF 50 to 55%, moderate concentric LVH, GLS -17.1%, mild MR, mild AR, mild TR
Plan:
-Presented with acute hypoxic respiratory failure felt to be due to CHF. diuresed with improvement. weight down from admission. then with orthostasis and lasix held.
-ortho VS improved today
-plan for po lasix 20mg PRN weight gain upon DC
-presented in afib s/p spontaneous conversion with 6 second conversion pause on 01/14. continue low dose toprol, eliquis
-Echo stable as noted above. Outpatient amyloid workup with amyloid labs and PYP scan given.
-trop peaked at 0.36. Suspected nonMI trop elevation, however he did also have abnormal EKG in rapid afib with lateral T wave inversions/depressions. needs OP ischemic eval for further assessment.
-continue statin. add on lipid panel to AM labs
-consider addition of asa however may hold off to reduce bleeding risk
-OP cardiac follow up arranged
-he was noted to have multilevel DDD and spinal stenosis by imaging this admission. OP neurology follow up
-for DC today
HPI 01/14/24:
Harvey is a 78-year-old male known to cardiology with hx of HTN, Hyperlipidemia, recent b/l PE, PAFib, prior ulcer with EGD who presented to his PCP approximately a week ago with cough and feeling weak. He was treated by PCP empirically for PNA and
placed on Levaquin. He did not feel better. He also has been seeing neuro Dr Pineda about possible neuropathy in his face and arms and felt that his beta leanne was contributing and stopped this. When he called the track vehicle repairer office complaining of
being weak and dizzy and he was told to remain off beta leanne until after treatment of his PNA was completed.
He was treated for PE b/l and acute left DVT in [place] in Sep 2023 and has been on Eliquis since. He also had some aFib at that time. He was treated with focal thrombotic therapy. Echo was unremarkable for RV dysfunction. He was seen by GI after
having bleeding ulcers and Eliquis was held and then resumed. At the last office visit with Dr Tipton in November 2023 he was recommended lifelong anticoagulation if no further bleeding.
Cardiology was consulted for AFib with RVR, hypotension and possible HF noted in ER.
Progress Note - Passenger Screener
Subjective
Date of Service: January 18, 2024
no issues overnight noted
Objective
Labs:
01/17/24 05:10
01/18/24 05:16
Labs
Hgb 15.1 g/dL (13.0-18.0) 01/17/24 05:10
Hct 44.2 % (39.0-52.0) 01/17/24 05:10
Plt Count 363 10^3/uL (130-400) 01/17/24 05:10
Sodium 130 mmol/L (135-145) L 01/18/24 05:16
Potassium 4.6 mmol/L (3.5-5.1) 01/18/24 05:16
BUN 29 mg/dl (9-20) H 01/18/24 05:16
Creatinine 1.1 mg/dL (0.7-1.3) 01/18/24 05:16
Glucose 94 mg/dl (70-99) 01/18/24 05:16
Vital Signs and I&O:
Vital Signs
Temp Pulse Resp BP Pulse Ox
97.6 F 69 18 99/64 98
01/18/24 11:30 01/18/24 11:30 01/18/24 11:30 01/18/24 11:30 01/18/24 11:30
Vital Signs
Temp Pulse Resp BP Pulse Ox
97.6 F 69 18 99/64 98
01/18/24 11:30 01/18/24 11:30 01/18/24 11:30 01/18/24 11:30 01/18/24 11:30
Intake & Output
01/16/24 01/17/24 01/18/24 01/19/24
07:59 07:59 07:59 07:59
Intake Total 120 / 120 1200 / 1200 240 / 240
Output Total 1400 / 1400
Balance -1280 / -1280 1200 / 1200 240 / 240
--- NOTE | 2024-01-18 13:33 | W.PN.HOSP.TC ---
Today's Communication/Plan
-
dc to home
Assessment / Plan
Assessment / Plan
Assessment:
Acute hypoxic respiratory failure - resolved on RA
Paroxysmal atrial fibrillation with rapid ventricular response
- briefly required IV Cardizem
- now resume HS metoprolol
- continue Eliquis
- Echo: normal LV size/function, EF 55%, moderate LVH, mild MR, mild AR, mild TR
- Cards following
Acute HFpEF
- had to stop IV Lasix due to orthostasis; improved with IVF. PRN Lasix at discharge.
Non-OK trop elevation (nonischemic myocardial injury)
- peaked at .366
Hypervolemic hyponatremia
Acute present (now resolved) on chronic kidney disease 3b
- improved with Lasix
Hyperkalemia - resolved
Upper extremity neuropathies for months
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
- Neurosurg consult appreciated; no intervention
- outpatient EMG is next diagnostic step
- continue Pregabalin at discharge
Recent diagnosis of subsegmental pulm embolus in September
- s/p thrombectomy
- continue Eliquis
- OP Pulm follow up
hx of PUD exacerbated by Eliquis
- this was in [place]
- on PPI daily
Respiratory tract infection
- Treated in the past week with Levaquin by PCP
- procal negative, no fever or leukocytosis; monitor off Abx
History of terminal ileitis and also appendectomy
Bladder outlet obstruction hx
COVID-19 in 2020
DVT ppx: Eliquis
Code: Full
More than 30 minutes spent in discharge including
Final examination of the patient
Summarizing hospital stay
Instructions for continuing care to all relevant caregivers
Preparation of discharge records, prescriptions, and referral forms
Total time spent (in minutes):41
Anticipated Discharge: Today
Subjective/Interval History
-
Date of Service: January 18, 2024
denies any new complaints
Objective Data
-
Labs:
Laboratory Results
01/18/24
05:16
Sodium 130 L
Potassium 4.6
Chloride 96 L
Carbon Dioxide 29
BUN 29 H
Creatinine 1.1
Glucose 94
Calcium 8.9
Vital Signs:
Vital Signs
Temp Pulse Resp BP Pulse Ox
97.6 F 69 18 99/64 98
01/18/24 11:30 01/18/24 11:30 01/18/24 11:30 01/18/24 11:30 01/18/24 11:30
I&O
01/17/24 01/18/24 01/19/24
06:59 06:59 06:59
Intake Total 1200 / 1200 240 / 240
Balance 1200 / 1200 240 / 240
Physical Exam
-
General: No Apparent Distress
HEENT: Normocephalic and Atraumatic
Respiratory: Negative Wheezes or Rales
Cardiac: Regular Rhythm and S1/S2
GI: Soft
Genito-urinary: No Costovertebral Tender
Neuro: AO x 3
Hematologic / Lymphatic: No Lymphadenopathy
Psych: Calm
Data Reviewed
-
Total Time Spent with Patient (in minutes): 41
Labs: Labs Reviewed by me
--- NOTE | 2024-01-18 13:41 | W.DS.TRANS ---
DC Summary - [employer]
-
Discharge Instructions:
Sleep Apnea Risk High
Discharge Diagnosis/Procedures acute CHF, orthostasis, unexplained facial/chest
neuropathy
Diet Low Cholesterol
Activity As tolerated
Bathing Restrictions None
Instructions: *[facility] Heart Failure Instructions
Stand-Alone Forms:
Changes to Home Medications: Yes
Discharge Medications:
DC Medications w/original date entered in [employer]
multivitamin 1 tab PO DAILY Supplement 05/11/22
apixaban 5 mg tablet (Eliquis) 5 mg PO BID Blood Clot Prevention/Tx 12/26/23
metoprolol succinate 25 mg tablet,extended release 24 hr 12.5 mg PO HS Blood Pressure 12/26/23
pantoprazole 40 mg tablet,delayed release 40 mg PO DAILY GERD 12/26/23
acetaminophen 325 mg tablet (Tylenol) 325 mg PO Q4HPRN PRN mild pain 01/14/24
atorvastatin 10 mg tablet 10 mg PO DAILY #30 tabs 01/18/24
furosemide 20 mg tablet (Lasix) 20 mg PO DAILY PRN Weight gain #30 tabs 01/18/24
pregabalin 50 mg capsule (Lyrica) 100 mg (2 x 50 mg) PO BID #120 caps 01/18/24
Home Medication Changes
Lasix as prn
Lyrica to 100mg BID
Pending Results: No
Total time spent discharging patient (in min): 41
--- NOTE | 2024-01-18 14:22 | CM ---
MD entered order for discharge.
Spoke with patient he is ready for discharge.
His will Denae drive him home.
Offered VN he declined need.
IMM given reviewed signed placed on chart.
PLAN Home no needs
[2024-01-18 14:23] LABS: HDL Cholesterol 33 mg/dl; LDL Cholesterol, Calculated 81 mg/dl; Total Cholesterol 154 mg/dl (50-199); Triglyceride 201 mg/dl (10-149); Very Low Density Lipoprotein 40 mg/dl (0-30)
[2024-01-18 16:00] VITALS: BP 96/60
== END 2024-01-18 17:08 | disposition home or self-care (01) | DRG 291 ==
LOC: 3 WEST ACU 11:27
PROVIDERS: Nurse Practitioner Family; ADMITTING PHYSICIAN Internal Medicine; ATTENDING PHYSICIAN Internal Medicine; CONSULT PHYSICIAN Nuclear Medicine Nuclear Cardiology; EMERGENCY PHYSICIAN Emergency Medicine; FAMILY PHYSICIAN Family Medicine; OTHER PHYSICIAN Neurological Surgery
DX: I13.0 Hypertensive heart and chronic kidney disease with heart failure and stage 1 through stage 4 chronic kidney disease, or unspecified chronic kidney disease (principal); I50.31 Acute diastolic (congestive) heart failure; E87.1 Hypo-osmolality and hyponatremia; K50.00 Crohn's disease of small intestine without complications; M51.04 Intervertebral disc disorders with myelopathy, thoracic region; N17.9 Acute kidney failure, unspecified; I48.0 Paroxysmal atrial fibrillation; E78.00 Pure hypercholesterolemia, unspecified; E87.5 Hyperkalemia; I95.9 Hypotension, unspecified; K21.9 Gastro-esophageal reflux disease without esophagitis; I5A Non-ischemic myocardial injury (non-traumatic); M48.02 Spinal stenosis, cervical region; M47.813 Spondylosis without myelopathy or radiculopathy, cervicothoracic region; M47.812 Spondylosis without myelopathy or radiculopathy, cervical region; D17.79 Benign lipomatous neoplasm of other sites; N32.0 Bladder-neck obstruction; G62.9 Polyneuropathy, unspecified; N18.32 Chronic kidney disease, stage 3b; Z86.16 Personal history of COVID-19; Z86.711 Personal history of pulmonary embolism; Z79.01 Long term (current) use of anticoagulants; Z87.11 Personal history of peptic ulcer disease
CPT/HCPCS: 71046; 72156; 72157; 80048; 80053; 80061; 81003; 81015; 82570; 83880; 83935; 84145; 84300; 84484; 85025; 85027; 87040; 87449; 93005; 93306; 94640; 96374; 96375; 97163; 97167; 99291; A9575

== ENCOUNTER → 2024-01-29 07:32 | Outpatient (REF) | payer MEDICARE, OTHER, SELFPAY | LOC: EMG 07:32 | PROVIDERS: ATTENDING PHYSICIAN Psychiatry & Neurology Neurology; FAMILY PHYSICIAN Family Medicine | DX: M79.2 Neuralgia and neuritis, unspecified (principal); R20.0 Anesthesia of skin | CPT/HCPCS: 95886; 95913 ==

== ENCOUNTER → 2024-01-31 13:19 | Outpatient (REF) | payer MEDICARE, OTHER, SELFPAY | LOC: PAVMRI 13:19 | PROVIDERS: ATTENDING PHYSICIAN Psychiatry & Neurology Neurology; FAMILY PHYSICIAN Family Medicine | DX: M79.2 Neuralgia and neuritis, unspecified (principal) | CPT/HCPCS: 70553; A9575 ==

== ENCOUNTER → 2024-02-05 06:35 | Day surgery (SDC) | payer MEDICARE, OTHER, SELFPAY | LOC: GI 06:35 | PROVIDERS: ATTENDING PHYSICIAN Internal Medicine; FAMILY PHYSICIAN Family Medicine | DX: K29.50 Unspecified chronic gastritis without bleeding (principal) | CPT/HCPCS: 43239; 88305; 88342 ==

== ENCOUNTER → 2024-02-21 10:02 | Outpatient (REF) | payer MEDICARE, OTHER, SELFPAY | LOC: RAD 10:02 | PROVIDERS: ATTENDING PHYSICIAN Internal Medicine Cardiovascular Disease; FAMILY PHYSICIAN Family Medicine | DX: I50.9 Heart failure, unspecified (principal) | CPT/HCPCS: 78803; A9538 ==

== ENCOUNTER 2024-02-21 14:16 | Outpatient (RCR) | payer MEDICARE, OTHER, SELFPAY | END 2024-02-21 23:59 | disposition home or self-care (01) | LOC: RPT 14:16 | PROVIDERS: ATTENDING PHYSICIAN Psychiatry & Neurology Neurology; FAMILY PHYSICIAN Family Medicine | DX: M54.12 Radiculopathy, cervical region (principal); M79.2 Neuralgia and neuritis, unspecified; Z73.6 Limitation of activities due to disability; R20.2 Paresthesia of skin | CPT/HCPCS: 97110; 97140; 97162 ==

== ENCOUNTER → 2024-03-12 06:50 | Outpatient (REF) | payer MEDICARE, OTHER, SELFPAY ==
[2024-03-12 07:30] VITALS: BP 125/80; BP_SYST 58
[2024-03-12 07:37] LABS: INR 1.43; PT 17.2 Sec (11.4-14.6)
[2024-03-12 07:44] LABS: % Basophils 0.2 % (0-2); % Eosinophils 2.6 % (0-6); % Immature Granulocytes 0.3 % (0-0.5); % Lymphocytes 27.8 % (20.5-51.1); % Monocytes 10.2 % (1.7-9.3); % Neutrophils 58.9 % (42.2-75.2); Absolute Eosinophils 0.2 10^3/uL (0-0.7); Absolute Lymphocytes 1.7 10^3/uL (1.2-3.4); Absolute Monocytes 0.6 10^3/uL (0.1-0.6); Absolute Neutrophils 3.7 10^3/uL (1.4-6.5); Hematocrit 42.6 % (39.0-52.0); Hemoglobin 14.3 g/dL (13.0-18.0); Mean Corp Hgb Conc. 33.6 g/dL (33.0-37.0); Mean Corpuscular Hgb 28.2 pg (27.0-31.0); Mean Platelet Volume 9.9 fL (7.4-10.4); Nucleated Red Blood Cells % 0 % (-); Platelet Count 255 10^3/uL (130-400); Red Blood Cell Count 5.07 10^6/uL (4.70-6.10); Red Cell Dist. Width 14.5 % (11.5-14.5); White Blood Cell Count 6.3 10^3/uL (4.8-10.8)
[2024-03-12] MEDS: ATIVAN 0.5 MG IV (08:13)
[2024-03-12] MEDS: FLUSH (NSS) 1 FLUSH IV (08:13)
[2024-03-12] MEDS: NSS (PRESERVATIVE FREE) 0.25 ML IV (08:14)
[2024-03-12 08:58] VITALS: BP 126/79
== END ==
LOC: RADI 06:50
PROVIDERS: ATTENDING PHYSICIAN Internal Medicine Hematology & Oncology
DX: D47.2 Monoclonal gammopathy (principal); C90.00 Multiple myeloma not having achieved remission; E85.4 Organ-limited amyloidosis; I43 Cardiomyopathy in diseases classified elsewhere; D68.8 Other specified coagulation defects
CPT/HCPCS: 88305; 88311; 88312; 38222; 77012; 85025; 85610; 88313; 88341; 88342

== ENCOUNTER → 2024-03-14 08:20 | Outpatient (REF) | payer MEDICARE, OTHER, SELFPAY | LOC: MRI 3T 08:20 | PROVIDERS: ATTENDING PHYSICIAN Psychiatry & Neurology Neurology; FAMILY PHYSICIAN Family Medicine | DX: M79.2 Neuralgia and neuritis, unspecified (principal); R20.2 Paresthesia of skin; M54.50 Low back pain, unspecified | CPT/HCPCS: 72148 ==

== ENCOUNTER 2024-03-26 17:49 | Outpatient (RCR) | payer MEDICARE, OTHER, SELFPAY | END 2024-03-26 23:59 | disposition home or self-care (01) | LOC: RPT 17:49 | PROVIDERS: ATTENDING PHYSICIAN Psychiatry & Neurology Neurology; FAMILY PHYSICIAN Family Medicine | DX: M54.12 Radiculopathy, cervical region (principal); M79.2 Neuralgia and neuritis, unspecified; R20.2 Paresthesia of skin; Z73.6 Limitation of activities due to disability | CPT/HCPCS: 97110; 97140 ==

== ENCOUNTER 2024-04-04 17:41 | Observation (INO) | payer MEDICARE, OTHER, SELFPAY ==
[2024-04-04 15:43] VITALS: BP 121/82
[2024-04-04 16:02] LABS: % Basophils 0.3 % (0-2); % Eosinophils 1.3 % (0-6); % Immature Granulocytes 0.1 % (0-0.5); % Lymphocytes 20.6 % (20.5-51.1); % Monocytes 7.4 % (1.7-9.3); % Neutrophils 70.3 % (42.2-75.2); Absolute Eosinophils 0.1 10^3/uL (0-0.7); Absolute Lymphocytes 1.4 10^3/uL (1.2-3.4); Absolute Monocytes 0.5 10^3/uL (0.1-0.6); Absolute Neutrophils 4.8 10^3/uL (1.4-6.5); Hematocrit 45.8 % (39.0-52.0); Hemoglobin 15.6 g/dL (13.0-18.0); Mean Corp Hgb Conc. 34.1 g/dL (33.0-37.0); Mean Corpuscular Hgb 28.6 pg (27.0-31.0); Mean Platelet Volume 9.5 fL (7.4-10.4); Nucleated Red Blood Cells % 0 % (-); Platelet Count 270 10^3/uL (130-400); Red Blood Cell Count 5.45 10^6/uL (4.70-6.10); Red Cell Dist. Width 14.6 % (11.5-14.5); White Blood Cell Count 6.9 10^3/uL (4.8-10.8)
[2024-04-04 16:18] LABS: ALT (SGPT) 21 U/L (0-50); AST (SGOT) 43 U/L (17-59); Albumin 3.4 g/dl (3.5-5.0); Alkaline Phosphatase 123 U/L (38-126); Blood Urea Nitrogen 27 mg/dl (9-20); Carbon Dioxide 27 mmol/L (22-30); Chloride 103 mmol/L (98-107); Glucose 101 mg/dl (70-99); Potassium 4.8 mmol/L (3.5-5.1); Sodium 133 mmol/L (135-145); Total Protein 6.4 g/dl (6.3-8.2); eGFR > 60.00
[2024-04-04 16:30] LABS: Troponin I 0.047 ng/ml
--- NOTE | 2024-04-04 16:49 | ED.GENMED ---
History of Present Illness
General
Chief Complaint: Chest Pain
Source: patient
Exam Limitations: none
Time Seen by Provider: 04/04/24 16:36
Nursing documentation reviewed up to this point in time: agreed with
History of Present Illness
History of Present Illness:
78-year-old male with a past medical history of GERD/PUD, hyperlipidemia, atrial fibrillation, PE on Eliquis who presents to the emergency department for evaluation of throat pain and chest pain. Patient reports that he has had symptoms
intermittently for the past few days. He reports initially he felt a sensation of tightness intermittently in his throat but since then has become tightness in the throat and chest. He has not noticed any clear triggering or relieving factors. He
says that he mentioned his symptoms to his special police officer who recommended he come to the emergency room reassess. He denies any relation to eating, denies any odynophagia or dysphagia. He denies any shortness of breath. Denies any palpitations. He
denies any recent illness�no cough, fevers, chills, URI symptoms. He denies any nausea, vomiting, abdominal pain. He denies similar symptoms in the past.
Past History
Past History
ED Past Medical History: Arrthythmia (Atrial fibrillation), GERD, Hypercholesterolemia and Other (Pulmonary embolism)
ED Past Surgical History: Appendectomy
Social History
Tobacco: Non-smoker
Alcohol: None
Drug: None
Personal:
Living: with family
Employment: Retired
Review of Systems
Review of Systems
All Other Systems: ROS reviewed and negative except as documented in HPI and ROS
Constitutional: Denies fever or chills
EENT: Denies sore throat or runny nose
Respiratory: Denies cough or trouble breathing
Cardiac: Reports chest pain; Denies diaphoresis, palpitations or syncope
ABD/GI: Denies abdominal pain, nausea, vomiting or diarrhea
: Denies flank pain
Musculoskeletal: Reports neck pain; Denies back pain
Neurological: Denies dizzy, headache, weakness or numbness
Phy Exam
Physical Exam
Physical Exam:
General: Awake, alert, oriented x3; no acute distress
Head: Normocephalic, atraumatic
Eyes: Conjunctiva normal
Throat: Airway intact, handling secretions
Neck: Trachea midline, supple without meningismus
Lungs: Clear to auscultation bilaterally, no wheezing, rales, rhonchi
Heart: Regular rate and rhythm, no murmurs, gallops, or rubs
Abd: Soft, non distended, nontender
Neuro: No gross deficits
Skin: no rash
Extremities: No edema in extremities, equal pulses in all extremities
Scores
Heart Failure Risk
Heart Failure Risk Score: Not Applicable
Heart Score for Chest Pain Patients
STEMI patient?: Not applicable
Withdrawal Assessment of Alcohol
Withdrawal Assessment Completed?: Not applicable
Course
Orders/Labs/Results
Orders:
Orders
04/04/24 15:38
Electrocardiogram (*1) Urgent
Reason for Study: Chest Pain
EKG- Treatment ONCE
04/04/24 15:51
Complete Blood Count/With Diff Urgent
Comprehensive Metabolic Panel Urgent
Troponin I Urgent
04/04/24 16:38
Aspirin Chewable [Low Strength Aspirin] 324 mg PO NOW STA
04/04/24 18:30
Troponin I Urgent
Abnormal Lab Results
04/04/24
15:51
RDW 14.6 H %
(11.5-14.5)
Sodium 133 L mmol/L
(135-145)
BUN 27 H mg/dl
(9-20)
Glucose 101 H mg/dl
(70-99)
Troponin I 0.047 H* ng/ml
Albumin 3.4 L g/dl
(3.5-5.0)
04/04/24 15:51
04/04/24 15:51
Vital Signs
Initial and Last Documented VS:
Initial Vital Signs
Temp Pulse Resp BP Pulse Ox
36.4 C 64 18 121/82 97
04/04/24 15:43 04/04/24 15:43 04/04/24 15:43 04/04/24 15:43 04/04/24 15:43
Last Documented Vital Signs
Temp Pulse Resp BP Pulse Ox
36.4 C 64 18 121/82 97
04/04/24 15:43 04/04/24 15:43 04/04/24 15:43 04/04/24 15:43 04/04/24 15:43
MDM/Problems Addressed
Differential Diagnosis Includes:
GERD/esophagitis, angina/ACS, costochondritis
MDM/Problems Addressed:
78-year-old male with history as documented presents for evaluation of throat tightness/chest pain intermittently for the past few days. Vital signs normal. Exam as above. EKG shows lateral T wave inversions. Similar to prior. Placed an IV
check labs including a CBC and CMP, serial troponins. Will check chest x-ray. Trial nitroglycerin. Treat with aspirin. Monitor on telemetry and reassess after the above.
Labs reviewed: CBC unremarkable, CMP no clinically significant abnormalities. Initial troponin slightly elevated at 0.047�will need to trend. Discussed with cardiology will admit to hospitalist service for trending of troponins overnight and
cardiology consultation. Case discussed with hospitalist for admission.
Chronic conditions affecting care:
Hyperlipidemia, A-fib
*Radiology
Radiology exam reviewed: radiology read reviewed
*Pulse Oximetry
Patient hypoxic: no
*EKG
Interpreted by ED Provider?: Yes
Comparison EKG: no changes
Heart Rate: 62
Rate: normal
Rhythm: sinus
[place]: left axis deviation
Interval: normal interval
QRS Pattern: normal QRS
Ischemia: T-wave inversion (Lateral)
*Critical Care Note
Total Time (30-74mins, 75-104mins- exclusive of procedures): Not Applicable
Data Reviewed
Review of Other/Old Records Reveals: Labs and Records
Source: patient and records
Patient Management
Discussion with other providers: Hospitalist (Discussed with hospitalist) and General Farm Manager (Discussed with cardiology)
Escalation/DeEscalation of care consider admission/obs:
Admission indicate
ED Attending Note
-
Portions of this chart may have been created with voice recognition software.� Occasional wrong word or��sound alike� substitutions may have occurred due to the inherent limitations of voice recognition software.
Discharge Plan
Departure
Patient Disposition: Admit
Date of Disposition: 04/04/24
Time of Disposition: 16:55
Admit to doctor: Josh
Presentation/result/management discussed w/ accepting MD/DO: Hospitalist
Discharge Problem:
Chest pain
Prescriptions:
No Action
pantoprazole 40 mg Tablet,Delayed Release (Dr/Ec)
40 mg PO DAILY
metoprolol succinate 25 mg Tablet Extended Release 24 Hr
12.5 mg PO HS
Eliquis 5 mg Tablet
5 mg PO BID
acetaminophen [Tylenol] 325 mg Tablet
325 mg PO Q4HPRN PRN (Reason: mild pain)
pregabalin [Lyrica] 50 mg capsule
100 mg PO BID Qty: 120 0RF
midodrine 2.5 mg Tablet
5 mg PO BID
Interventions
Interventions:
*Risk Screen - Suicide Last Done: 04/04/24 15:43
*General Assessment Last Done: 04/04/24 15:43
*Neglect/Abuse Screening Last Done: 04/04/24 15:43
*ED COVID-19 Vaccine History Last Done: 04/04/24 15:43
Discharge Date and Time
Print Language: PASHTO
[2024-04-04 17:07] VITALS: BP 116/70; BMI 27.0
[2024-04-04 17:09] VITALS: BP 116/70
[2024-04-04] MEDS: NITROSTAT (SUBLINGUAL) 0.4 MG SL (17:20)
[2024-04-04] MEDS: LOW STRENGTH ASPIRIN 324 MG PO (17:21)
--- NOTE | 2024-04-04 17:29 | HPS.HSE ---
Addendum entered and electronically signed by Leobardo Narvaez MD 04/04/24 17:39:
Upon further inquiry patient states that he occasionally coughs after eating or drinking something. Sometimes he feels like food gets stuck in his esophagus. He recently had an endoscopy this January which did not show any pathology although he did
not have dysphagia at that time. Consulted GI, may actually need esophogram.
Original Note:
Family Physician
-
Family Physician: Jeffery Bustamante
Chief Complaint
-
chest tightness
History of Present Illness
78-year-old male past medical history of multiple myeloma diagnosed 2 hours ago, GERD/peptic ulcer disease, hyperlipidemia, atrial fibrillation, pulmonary embolism on Eliquis, neuropathy, presenting for chest pain and throat pain. He has had throat
tightness for the past 2 weeks with some involvement the jaw. Over the past week he developed chest tightness. No radiation of pain to the arms or back. No triggering or relieving factors. He told his gasfitter who recommend he come to the
emergency room.
Over the past month he has had choking sensation at times which he thinks occurs a little bit more with liquids. He drinks with a straw to prevent this from happening. Denies pain with swallowing.
He denies any change in pain related to eating or difficulty swallowing. He denies any shortness of breath. He denies any palpitations. He denies any recent illness such as cough, fevers, chills. He denies nausea or vomiting or abdominal pain.
He just found out that he has multiple myeloma 2 hours ago which was diagnosed from a bone marrow biopsy after patient was having back pains and neuropathy.
He is scheduled to have some pulmonary testing tomorrow although he does not know what tests. will bring in scripts.
He denies smoking or alcohol use.
His brother had cardiac stents placed.
Medical History
Past Medical History
Past Medical History: Reports Other (multiple myeloma diagnosed 2 hours ago, GERD/peptic ulcer disease, hyperlipidemia, atrial fibrillation, pulmonary embolism on Eliquis, neuropathy, )
Past Surgical History: Reports Other (Ankle surgery, appendectomy)
Social History
Tobacco: Non-smoker
Alcohol: None
Drug: None
Family History
Family History: Not pertinent
Allergies / Home Medications
Allergies reflects when Allergies were last updated in [facility].
Home Medications with original date entered in [facility]
Allergy/Medication List:
Allergies
Allergy/AdvReac Type Severity Reaction Status Date / Time
No Known Allergies Allergy Verified 04/04/24 15:45
Home Medications
apixaban 5 mg tablet (Eliquis) 5 mg PO BID Blood Clot Prevention/Tx 12/26/23
metoprolol succinate 25 mg tablet,extended release 24 hr 12.5 mg PO HS Blood Pressure 12/26/23
pantoprazole 40 mg tablet,delayed release 40 mg PO DAILY GERD 12/26/23
pregabalin 150 mg capsule 150 mg PO BID@0000,1200 04/04/24
Review of Systems
-
History Source: Patient
A 12 point ROS was completed and negative except as noted: Yes
Constitutional: Reports No Symptoms
EENT: Reports No Symptoms
Respiratory: Reports See HPI
Cardiac: Reports See HPI
Abdomen/GI: Reports See HPI
: Reports No Symptoms
Musculoskeletal: Reports No Symptoms
Skin: Reports No Symptoms
Neurological: Reports No Symptoms
Endocrine: Reports No Symptoms
Hematologic/Lymphatic: Reports No Symptoms
Psych: Reports No Symptoms
Physical Exam
Vital Signs
Vital Signs
Temp Pulse Resp BP Pulse Ox
97.5 F 61 18 116/70 95
04/04/24 15:43 04/04/24 17:15 04/04/24 17:15 04/04/24 17:20 04/04/24 17:10
Physical Exam
General: Well Developed, Well Nourished and No Apparent Distress
HEENT: NormoCephalic, Moist mucous membranes and Atraumatic
Respiratory: Clear
Cardiac: S1/S2 and Regular Rhythm; No Murmur or Rub
GI: Soft, Non Tender, Non Distended and Normal Bowel Sounds; No Organomegaly
Rectal: Deferred by Provider
Musculoskeletal: No Clubbing, No Cyanosis and No Edema
Skin: No Rash
Neuro: Nonfocal/grossly intact
Laboratory Results
-
04/04/24 15:51
04/04/24 15:51
Laboratory Results
Total Bilirubin 1.0 mg/dl (0.2-1.3) 04/04/24 15:51
AST 43 U/L (17-59) 04/04/24 15:51
ALT 21 U/L (0-50) 04/04/24 15:51
Alkaline Phosphatase 123 U/L (38-126) 04/04/24 15:51
Troponin I 0.047 ng/ml H* 04/04/24 15:51
Data Reviewed
-
Lab Data: Labs Reviewed by me
Old Records: Reviewed
Impression/Plan
-
IMPRESSION:
PLAN:
# NSTEMI versus unstable angina
-Has some mild chest tightness currently
-Troponin of 0.047
-Trend troponins
-EKG shows normal sinus rhythm, sinus arrhythmia with T wave inversions in lateral leads which appear to be new
-Aspirin given
-Continue Eliquis
-Nitroglycerin for chest pain
-N.p.o. pastmidnight for potential catheterization
-Cardiology consulted
# Dysphagia
-Choking sensation suggestive of oropharyngeal dysphagia
-Check speech and swallow evaluation, may need VSE
Multiple myeloma
-Recently found out about diagnosis 2 hours ago
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
-Continue pregabalin
Paroxysmal atrial fibrillation
-Continue Eliquis
-Continue with Toprol
History of pulmonary embolism
-Continue Eliquis
GERD/peptic ulcer disease
-Continue Protonix
Hyperlipidemia
Full code
DVT prophylaxis�Eliquis
N.p.o. past midnight
[2024-04-04 18:00] VITALS: BP 142/83
[2024-04-04 19:15] VITALS: BP 146/78; BMI 26.7
--- NOTE | 2024-04-04 19:20 | PTCARENOTE ---
Pt received from ED to [facility]2. Pt oriented to room and call [email or web address].
[2024-04-04 19:25] LABS: Troponin I 0.049 ng/ml
[2024-04-04 20:15] VITALS: BMI 26.7
[2024-04-04] MEDS: ELIQUIS 5 MG PO (20:21)
[2024-04-04] MEDS: TOPROL XL 12.5 MG PO (20:21)
[2024-04-04 23:20] VITALS: BP 128/75
[2024-04-04] MEDS: LYRICA 150 MG PO (23:33)
[2024-04-05] VITALS (8 sets, daily range): BP systolic 68–140; BP diastolic 65–77
[2024-04-05 02:57] LABS: Troponin I 0.063 ng/ml
[2024-04-05 08:26] LABS: % Basophils 0.3 % (0-2); % Eosinophils 1.4 % (0-6); % Immature Granulocytes 0.2 % (0-0.5); % Lymphocytes 25.7 % (20.5-51.1); % Monocytes 9.4 % (1.7-9.3); Absolute Eosinophils 0.1 10^3/uL (0-0.7); Absolute Lymphocytes 1.6 10^3/uL (1.2-3.4); Absolute Monocytes 0.6 10^3/uL (0.1-0.6); Hematocrit 45.3 % (39.0-52.0); Hemoglobin 15.4 g/dL (13.0-18.0); Mean Corpuscular Hgb 28.8 pg (27.0-31.0); Mean Corpuscular Volume 84.7 fL (80.0-94.0); Mean Platelet Volume 9.9 fL (7.4-10.4); Nucleated Red Blood Cells % 0 % (-); Platelet Count 266 10^3/uL (130-400); Red Blood Cell Count 5.35 10^6/uL (4.70-6.10); Red Cell Dist. Width 14.3 % (11.5-14.5); White Blood Cell Count 6.4 10^3/uL (4.8-10.8)
[2024-04-05] MEDS: ELIQUIS 5 MG PO ×2 (08:48→19:51)
[2024-04-05] MEDS: PROTONIX 40 MG PO (08:48)
[2024-04-05 08:52] LABS: ALT (SGPT) 17 U/L (0-50); AST (SGOT) 37 U/L (17-59); Alkaline Phosphatase 107 U/L (38-126); Blood Urea Nitrogen 23 mg/dl (9-20); Calcium 8.9 mg/dl (8.4-10.2); Carbon Dioxide 29 mmol/L (22-30); Chloride 105 mmol/L (98-107); Estimated Creatinine Clearance 62 ml/min; Glucose 86 mg/dl (70-99); HDL Cholesterol 46 mg/dl; LDL Cholesterol, Calculated 147 mg/dl; Lipase 50 U/L (23-300); Potassium 4.7 mmol/L (3.5-5.1); Sodium 134 mmol/L (135-145); Total Bilirubin 1.2 mg/dl (0.2-1.3); Total Cholesterol 215 mg/dl (50-199); Total Protein 5.8 g/dl (6.3-8.2); Triglyceride 112 mg/dl (10-149); Very Low Density Lipoprotein 22 mg/dl (0-30); eGFR > 60.00
[2024-04-05 09:18] LABS: TSH Reflex To Free T4 2.08 uIU/ml (0.47-4.68)
--- NOTE | 2024-04-05 09:39 | CON.GI ---
Addendum entered and electronically signed by Lexus Lozano MD 04/05/24 15:40:
I saw and examined the patient.
The SHANK TAPER's note was reviewed and I agree with the note.
Comment: This is a 78-year-old male with past medical history PE, DVT, A-fib on Eliquis, GERD, noncardiac chest pain in the past was on amitriptyline had recently come off of it in January and sees Dr. Anders as outpatient. He does have a prior history
of peptic ulcer disease and did have a follow-up endoscopy and the ulcers had healed and he was also recently diagnosed with multiple myeloma and saw Dr. Ryder. He complains of pain and fatigue with chewing but no true dysphagia or odynophagia he
says his food goes down fine he is also been complaining of tingling and also chest pain and is also undergoing cardiac workup. He did have a CTA chest today which shows no evidence of PE, moderate bilateral pleural effusions with associated
atelectasis and small pericardial effusion.
Assessment and plan GERD and chronic noncardiac chest pain in the past and sees Dr. Anders and had improved with amitriptyline which he had stopped in January encouraged him to restart it when he goes home and follow-up with Dr. Anders as outpatient.
Continue Protonix and also told him to add Pepcid at bedtime. He does have a sensation of globus and could be related to anxiety and he also has allergies with postnasal drip which could be causing some of his symptoms I told him to take Claritin
as needed and also Flonase as needed. He really has no symptoms of dysphagia currently. Could schedule him for a video swallow and barium swallow as outpatient and defer further workup for chest pain per cardiology. If he continues to have
fatigue with chewing may need to rule out neuromuscular diseases and OPD and neurology consult as outpatient. Will sign off and will be available as needed.
Original Note:
Consultation
-
Date/Time Consultation Requested: 04/04/24 385
Date/Time Consultation Performed: 04/05/24 10
Requesting Provider: Leobardo Narvaez MD
Performing Provider: MIRELA Gómez, Lexus lozano MD
Reason for Consultation: chest pain
Medical History
Chief Complaint / HPI
Chief Complaint: chest pain
History of Present Illness:
Pt is a 78yo with hx GERD, CHF, hemorrhoids, PE/DVT/Afib on Eliquis, newly diagnosed multiple myeloma with admission to ER with chest pain. Pt with recent GI evaluation with Dr. Anders. In review of chart was noted with PE/DVT/afib in [place]. He
was placed on Eliquis then noted melena. CTA with bleeding in stomach and EGD with multiple clean based ulcers and discharge on Protonix BID. He also had prior EGD 2021 with gastric erosions. He went 02/05/24 for repeat EGD to assess for healing and
noted nodularity in gastric antrum and body with normal duodenum. bx inactive gastritis, chronic inflammation and neg H pylori. In reviewing with patient he states history of 'nerve pain' with tingling in finger, head, chest, and back. He also was
referred to hematology for possible cardiac amyloidosis with recent bone marrow biopsy that is now abnormal. He presented 04/04 with chest pain. symptoms progressed with some tightness in throat and also report recent painfulness with chewing.
Difficulty to say what makes symptoms better or worse but he admits to increased pain overnight after admission. He also reports at time some regurgitation of liquids after eating solids and occasional feeling of choking. He denies shortness of
breath and actually states he is very active with biking up to 6-8 mile and stopping for feeling of fatigue not shortness of breath.
Pt otherwise denies odynophagia, GERD, nausea, vomiting, abdominal pain, diarrhea, constipation or rectal bleeding.
Past Medical History
Past Medical History: Arrhythmias (afib ), Cancer (new diagnosis of multiple myeloma ), CHF, GERD, Hypercholesterolemia and Other (hemorrhoids, ulcers, PE/DVT with Eliquis use and lytic therapy, neuropathy)
Past Surgical History: Appendectomy (with inflammation noted on prior colonoscopy ), Orthopedic (ankle surgery ), Tonsilectomy and Other (hemorrhoidectomy)
Social History
Tobacco: Non-Smoker
Alcohol: None
Drug: None
Personal:
Living: With Family
Employment: Retired
Family History
Family History: Other (no hx colon Ca or polyps)
Allergies / Home Medications
Allergy/AdvReac Type Severity Reaction Status Date / Time
No Known Allergies Allergy Verified 04/04/24 15:45
�Medication �Instructions �Recorded
apixaban 5 mg tablet (Eliquis) 5 mg PO BID Blood Clot 12/26/23
Prevention/Tx
metoprolol succinate 25 mg 12.5 mg PO HS Blood Pressure 12/26/23
tablet,extended release 24 hr
pantoprazole 40 mg tablet,delayed 40 mg PO DAILY GERD 12/26/23
release
pregabalin 150 mg capsule 150 mg PO BID@0000,1200 04/04/24
Review of Systems
-
History Source: Patient
Constitutional: Reports Fatigue
EENT: Reports No Symptoms
Respiratory: Reports No Symptoms
Cardiac: Reports Chest Pain
Abdomen/GI: Reports Other (dysphagia at times )
: Reports No Symptoms
Musculoskeletal: Reports No Symptoms
Skin: Reports No Symptoms
Neurological: Reports Weakness
Endocrine: Reports No Symptoms
Hematologic/Lymphatic: Reports No Symptoms
Vital Signs
Temp Pulse Resp BP Pulse Ox
97.9 F 62 18 112/70 95
04/05/24 07:50 04/05/24 07:50 04/05/24 07:50 04/05/24 07:50 04/05/24 07:50
Physical Exam
Exam
General: Well Developed, Well Nourished and No Apparent Distress
HEENT: Normocephalic and Anicteric
Respiratory: Clear
Cardiac: Regular Rhythm
GI: Soft, Non Tender and Non Distended
Musculoskeletal: No Clubbing and No Cyanosis
Skin: Warm and Dry
Neuro: Awake, Alert and AO x 3
Results
WBC 6.4 10^3/uL (4.8-10.8) 04/05/24 08:
Hgb 15.4 g/dL (13.0-18.0) 04/05/24 08:01
Hct 45.3 % (39.0-52.0) 04/05/24 08:
MCV 84.7 fL (80.0-94.0) 04/05/24 08:01
Plt Count 266 10^3/uL (130-400) 04/05/24 08:01
Absolute Neuts (auto) 4.0 10^3/uL (1.4-6.5) 04/05/24 08:01
Sodium 134 mmol/L (135-145) L 04/05/24 08:01
Potassium 4.7 mmol/L (3.5-5.1) 04/05/24 08:
Chloride 105 mmol/L (98-107) 04/05/24 08:01
Carbon Dioxide 29 mmol/L (22-30) 04/05/24 08:01
BUN 23 mg/dl (9-20) H 04/05/24 08:01
Creatinine 1.0 mg/dL (0.7-1.3) 04/05/24 08:01
Calcium 8.9 mg/dl (8.4-10.2) 04/05/24 08:
Total Bilirubin 1.2 mg/dl (0.2-1.3) 04/05/24 08:01
AST 37 U/L (17-59) 04/05/24 08:01
ALT 17 U/L (0-50) 04/05/24 08:01
Alkaline Phosphatase 107 U/L (38-126) 04/05/24 08:01
Lipase 50 U/L (23-300) 04/05/24 08:01
Lipase Cancelled 04/05/24 08:01
Diagnostic Image Results:
02/2024 MR lumbar spine
1. SEVERE CHRONIC DISCOGENIC DEGENERATIVE DISEASE at L4/L5 and L5/S1.
2. Moderate to large diffuse disc bulge at L3/L4 causing mild central canal stenosis.
3. Moderate bilateral ligamentum flavum infolding at L4/L5 causing mild central canal stenosis.
4. Moderate left neural foraminal narrowing at L5/S1.
Prior GI Procedures:
EGD: 02/05/24 for repeat EGD to assess for healing and noted nodularity in gastric antrum and body with normal duodenum. bx inactive gastritis, chronic inflammation and neg H pylori.
EGD: [place] gastric ulcers 2023
EGD [address] Fuentes- Localized moderate inflammation characterized by erosions, erythema and aphthous ulcerations was found in the gastric antrum, gastritis , GERD bx neg
Colonoscopy: 2021 lupis - fair prep
One 6 mm submucosal nodule was found at the appendiceal orifice.
Biopsies were taken with a cold forceps for histology. No luminal masses
and normal terminal ileum.
Internal hemorrhoids were found during retroflexion with prominent anal
tags.
Only fair prep throughout and can't r/o small polyps.
bx mild acute cholitis
Assessment / Plan
-
Pt is a 78yo with hx GERD, CHF, hemorrhoids, PE/DVT/Afib on Eliquis, newly diagnosed multiple myeloma with admission to ER with chest pain. Pt with recent GI evaluation with Dr. Adners. In review of chart was noted with PE/DVT/afib in [place]. He
was placed on Eliquis then noted melena. CTA with bleeding in stomach and EGD with multiple clean based ulcers and discharge on Protonix BID. He also had prior EGD 2021 with gastric erosions. He went 02/05/24 for repeat EGD to assess for healing and
noted nodularity in gastric antrum and body with normal duodenum. bx inactive gastritis, chronic inflammation and neg H pylori. In reviewing with patient he states history of 'nerve pain' with tingling in finger, head, chest, and back. He also was
referred to hematology for possible cardiac amyloidosis with recent bone marrow biopsy that is now abnormal. He presented 04/04 with chest pain. symptoms progressed with some tightness in throat and also report recent painfulness with chewing.
Difficulty to say what makes symptoms better or worse but he admits to increased pain overnight after admission. He also reports at time some regurgitation of liquids after eating solids and occasional feeling of choking. He denies shortness of
breath and actually states he is very active with biking up to 6-8 mile and stopping for feeling of fatigue not shortness of breath.
-chest pain
-dysphagia/throat discomfort
-mild trop elevation
-hx PE/DVT prior lytic therapy 2023 in [place]
-Afib on eliquis
-newly diagnosed Multiple myeloma
-hx neuropathy with diffuse tingling symptoms
-hx PUD with recent repeat EGD in November
other med problems:
CHF
pleural effusion small
B/L pleural effusions by CXR
HTN
Hyperlipidemia
GERD
Tonsillectomy/left ankle surgery
Acute appendix inflammation that required appendectomy by Dr. Lowery 2021
PLAN:
etiology of symptoms unclear -- cardiac, GI. pulm with hx PE vs other
card eval to rule out cardiac etiology with mild trop elevation
agree with CT chest and LE US with elevated D dimer
can consider esophagram but pt with recent stable EGD x2 this year less likely GI obstructive issue -- some dysphagia may be motility related and can consider manometry outpatient
Pt will need follow up with heme to confirm plan for new diagnosis of myeloma
NPO til CT reviewed
will review with Dr. Lozano for further recs
-
-
Thank you for consultation and allowing me to participate in the patient's care. Please call the avionics installer GI physician during the after hours with any questions or concerns.
[2024-04-05 09:45] LABS: Glycohemoglobin (HgbA1c) 5.7 % (4.0-5.6)
[2024-04-05 09:45] LABS: D-Dimer 1.49 ug/mlFEU (0.00-0.50)
--- NOTE | 2024-04-05 09:45 | CON.CAR ---
Addendum entered and electronically signed by Elton Delgado MD 04/05/24 11:14:
I saw and examined the patient.
The Addictions Counselor's note was reviewed and I agree with the note.
Comment: Briefly, 78-year-old man past medical history of paroxysmal atrial fibrillation, PE on Eliquis, hypertension and neuropathy who presents for evaluation of chest discomfort
History obtained from the patient and his who was available by speaker phone
Chest pain is atypical� it sounds like he has had similar symptoms for several years now by their report
Symptoms are never exertional in nature, for instance [place] and not experience any discomfort however when he rests the pain will come on. Did not improve with sublingual nitro.
Prior stress test without evidence of ischemia
EKG is unchanged from prior, lateral T wave inversions were seen but also present on prior tracings, plan to repeat ECG this morning
Troponin here was mildly elevated but trend overall seems to be relatively flat. Of note seems to have chronic troponin elevation based on lab work from prior admissions. Trend to peak.
Continue Eliquis and metoprolol
Add aspirin
Check transthoracic echocardiogram
Tentatively plan for CTA of the chest to evaluate for recurrent PE
Ongoing workup for GI cause of his symptoms
Repeat ischemic evaluation would be reasonable however this could likely be arranged as an out patient depending on his clinical course here
We will continue to follow
Original Note:
Consultation
Consultation Request
Date/Time Consultation Performed: 04/05/24
Requesting Provider: Dr. Narvaez
Performing Provider: Joselin Gilliam PA-C for Dr. Delgado
Reason for Consultation: CP
Medical History
-
Chief Complaint: CP
History of Present Illness:
Patient is a 78-year-old male with past medical history of paroxysmal atrial fibrillation on chronic Eliquis, history of PE, GERD, hypertension, CKD, orthostatic hypotension, neuropathy. He reports he just recently underwent bone marrow biopsy, and
yesterday saw Dr. Ryder in the office and was diagnosed with multiple myeloma. There is no definitive plan for treatment at this point in time. He states that all day yesterday he had discomfort in his chest up into his throat, however has noticed
some intermittent tightness in his throat over the last 2 weeks. He reports at times it is painful to chew. He also states around every 3 to 4 days he has an episode of choking. He reports the only time his pain seems to be relieved is when he is
active�he states he rides 6 to 8 miles on his bike without issue and will walk around the block for 1 mile. He states when he returns he is tired, however denies pain associated with these activities. He had recent echocardiogram with normal EF
12/2023, but there were concerns for amyloid. He underwent technetium pyrophosphate scan negative for amyloid. Upon arrival to the ER he was given aspirin and sublingual nitro x 1 without significant improvement in his symptoms. He reports he
remains with 5 out of 10 chest discomfort at this time which he describes as 'annoying'. Troponin on arrival 0.049, now up to 0.063. Cardiology consulted for evaluation.
Past Medical history:
History of B/L PE, left DVT s/p focal lytic therapy 09/2023
PAF
Chronic OAC with eliquis
History of HFpEF 12/2023 in setting of rapid AF
HTN
Hyperlipidemia
Possible neuropathy UE
peptic ulcer s/p EGD 02/05/24 with gastritis
GERD
Tonsillectomy/left ankle surgery
Acute appendix inflammation that required appendectomy by Dr. Lowery 2021
Multiple myeloma, diagnosed 04/04 by [facility]
Past Medical History
Past Medical History: Other (in HPI)
Social History
Tobacco: Non-Smoker
Alcohol: None
Drug: None
Personal: (60 yrs!)
Employment: Retired
Family History
Family History: Reviewed & Not Pertinent
Allergies / Home Medications
Allergy/AdvReac Type Severity Reaction Status Date / Time
No Known Allergies Allergy Verified 04/04/24 15:45
�Medication �Instructions �Recorded �Confirmed �Type
apixaban 5 mg tablet (Eliquis) 5 mg PO BID Blood Clot 12/26/23 04/04/24 History
Prevention/Tx
metoprolol succinate 25 mg 12.5 mg PO HS Blood Pressure 12/26/23 04/04/24 History
tablet,extended release 24 hr
pantoprazole 40 mg tablet,delayed 40 mg PO DAILY GERD 12/26/23 04/04/24 History
release
pregabalin 150 mg capsule 150 mg PO BID@0000,1200 04/04/24 04/04/24 History
Review of Systems
-
History Source: Patient
All other systems: Negative unless noted
Physical Exam
Vital Signs
Temp Pulse Resp BP Pulse Ox
97.9 F 62 18 112/70 95
04/05/24 07:50 04/05/24 07:50 04/05/24 07:50 04/05/24 07:50 04/05/24 07:50
Lab Results
04/05/24 08:01
04/05/24 08:01
Troponin I 0.063 ng/ml H* D 04/05/24 01:32
Physical Exam
General: No Apparent Distress and Comfortable
HEENT: Normocephalic, Anicteric and Moist Mucous Membranes
Respiratory: Clear and Non Labored Respirations
Cardiac: S1/S2 and Regular Rhythm
GI: Soft, Non Tender, Non Distended and Normal Bowel Sounds
Musculoskeletal: No Clubbing, No Cyanosis and No Edema
Skin: Warm and Dry
Neuro: AO x 3
Impression / Plan
-
Primary Equipment Operat0R: Dr. Tipton
Assessment:
Presentation with chest/throat discomfort
Mild trop elevation
B/L pleural effusions by CXR
History of HFpEF 12/2023 in setting of rapid AF
PAF
History of B/L PE, left DVT s/p focal lytic therapy 09/2023
Chronic OAC with eliquis
HTN
Hyperlipidemia
Possible neuropathy UE
peptic ulcer s/p EGD 02/05/24 with gastritis
GERD
Tonsillectomy/left ankle surgery
Acute appendix inflammation that required appendectomy by Dr. Lowery 2021
Multiple myeloma, diagnosed 04/04 by [facility]
Stress echo 09/20/21: No evidence by echo with myocardial ischemia, [address] depression in inferior leads and V5 V6, LVH, throat discomfort at rest which did not change with exercise, exercise capacity well above average, overall low risk study
ECHO 12/28/23: EF 50 to 55%, no regional wall motion abnormalities, moderate concentric LVH, GLS -17.1%, mild MR, mild AR, mild TR
Plan:
-Patient presents with tightness in his throat over the last 2 weeks, however then starting this past Monday developed chest tightness. He reports over the last 24 hours his pain has been constant. diagnosed with MM 04/04
-Symptoms with typical as well as atypical features for angina
-He was given aspirin and sublingual nitro x 1 without significant improvement in ER yesterday
-Initial troponin 0.049, repeat 0.063, trend to peak
-He had GI evaluation given recent peptic ulcer. Repeat EGD 02/05/2024 with evidence of gastritis, no ulcers noted
-Chest x-ray with evidence of bilateral pleural effusions, right greater than left. check proBNP. Would consider thoracentesis to evaluate pleural fluid source.
-EKG sinus rhythm with stable lateral T wave inversion in V5/V6 compared to prior. repeat today
-follow on tele. in [place]
-Will repeat echo
-ddimer 1.49. Check chest CTA given history of PE
-Holding on IV heparin as got Eliquis this morning. add asa 81mg daily
-reports remains with 5/10 chest discomfort. consider for dose of morphine x1
-LDL 147, would consider addition of statin therapy
-If workup otherwise unrevealing, would consider for ischemic evaluation on Monday. last stress with results as above from 2021
-d/w GI YIELD ANALYST. d/w nursing
Data Reviewed
-
EKG: Tracing Personally Visualized and interpreted
Radiology: Report Reviewed by me
Medical Tests (Nuc Med, Echo etc): Report Reviewed by me
Labs: Labs Reviewed by me
Old Records: Reviewed
[2024-04-05 10:00] LABS: Troponin I 0.067 ng/ml
--- NOTE | 2024-04-05 11:02 | W.PN.HOSP.TC ---
Today's Communication/Plan
-
cont following with GI and card
CT chest
echo
Assessment / Plan
Assessment / Plan
78yo M with neuropathy, Hx of VTE on Eliquis, paroxysmal Afib, HTN, Hx of HFpEF, with concern for amyloidosis (heel blacker suggestged cardiac biopsy and patient had BM biopsy), multiple myeloma came with 2 weeks of tightness in his throat that
yasterday travelled down to midsternal area, not related to exertion, admitted for chest pain w/u with new EKG changes and elevated troponin
A/P:
#Chest dyscomfort
#Chronic HFpEF
#Chronic minimal pleural effusions
#Paroxysmal Afib
ASA, statin (if CPK WNL)
Telemetry,
Echo
Nitro sublingual PRN
Cardio follows: possible cardiac eval on 04/08/[address] - might need thoracentesis
#discomfort with swallowing
s/p EGD on 02/04 showing gastritis
GI consult
DISTRIBUTION SYSTEM OPERATOR consult
Aspiration precautions
#Pain on chewing
check ESR
No visual disturbances, no TMJ tenderness
#Multiple myeloma
follows with
#Hx of VTE
ddimer elevated - check CT chest and LE US
#Neuropathy
#Essential HTN
cont home meds
DVT ppx on Eliquis
Full code
I have spent at least 58min reviewing chart, test results, communication with consultants and direct patient care
Anticipated Discharge: > 48 hours
Subjective/Interval History
-
Date of Service: April 05, 2024
Objective Data
-
Labs:
Laboratory Results
04/05/24
08:01
WBC 6.4
Hgb 15.4
Hct 45.3
Plt Count 266
Sodium 134 L
Potassium 4.7
Chloride 105
Carbon Dioxide 29
BUN 23 H
Creatinine 1.0
Glucose 86
Calcium 8.9
Total Bilirubin 1.2
AST 37
ALT 17
Alkaline Phosphatase 107
Vital Signs:
Vital Signs
Temp Pulse Resp BP Pulse Ox
97.9 F 62 18 112/70 95
04/05/24 07:50 04/05/24 07:50 04/05/24 07:50 04/05/24 07:50 04/05/24 07:50
I&O
04/04/24 04/05/24 04/06/24
06:59 06:59 06:59
Intake Total 480 / 480
Balance 480 / 480
Review of Systems
-
History Source: Patient
All other systems: Reviewed and negative
Physical Exam
-
General: No Apparent Distress
HEENT: Normocephalic
Respiratory: Clear to Auscultation; Negative Wheezes or Rales
Cardiac: Regular Rhythm
GI: Soft, Nontender and Nondistended
Genito-urinary: No Costovertebral Tender
Musculoskeletal: No Clubbing, No Cyanosis and No Edema
Skin: Warm
Neuro: Awake, Alert, Oriented and AO x 3
Psych: Calm
[2024-04-05 11:49] LABS: NT-proBNP 5140 pg/ml
[2024-04-05] MEDS: LYRICA 150 MG PO ×2 (12:39→22:31)
[2024-04-05] MEDS: LOW STRENGTH ASPIRIN 81 MG PO (12:39)
[2024-04-05 12:43] LABS: Erythrocyte Sed Rate 16 mm/hour (0-20)
[2024-04-05 13:48] LABS: Creatine Phosphokinase 50 U/L (55-170)
[2024-04-05] MEDS: LASIX 20 MG IV (15:22)
--- NOTE | 2024-04-05 16:15 | CM ---
manager report reviewed patient's chart and patient resides with his spouse in a 2s tory home with one step to enter, norma is independent with adl's and ambulation, no dme, patient drives, home when stable no needs.
PCP: Dr Bustamante
Pharmacy [facility]
[2024-04-05 16:42] LABS: Body Fluid pH 7.47
[2024-04-05 16:54] LABS: Body Fluid LDH 103 U/L; Body Fluid Protein 2.4 g/dl
[2024-04-05] MEDS: LIPITOR 40 MG PO (17:18)
[2024-04-05 19:41] LABS: Body Fluid Mononuclear 91.6 %; Body Fluid Polymorphonuclear 8.4 %; Body Fluid Second Tech JKH; Body Fluid WBC 512 /CUMM
[2024-04-05] MEDS: TOPROL XL 12.5 MG PO (22:27)
[2024-04-06] MEDS: MELATONIN 5 MG PO (00:39)
[2024-04-06 03:00] VITALS: BP 111/83
[2024-04-06 07:00] VITALS: BP 94/55
[2024-04-06] MEDS: ELIQUIS 5 MG PO (08:46)
[2024-04-06] MEDS: LOW STRENGTH ASPIRIN 81 MG PO (08:46)
[2024-04-06] MEDS: PROTONIX 40 MG PO (08:46)
[2024-04-06 09:21] LABS: % Basophils 0.3 % (0-2); % Eosinophils 0.9 % (0-6); % Immature Granulocytes 0.3 % (0-0.5); % Lymphocytes 17.9 % (20.5-51.1); % Neutrophils 68.6 % (42.2-75.2); Absolute Eosinophils 0.1 10^3/uL (0-0.7); Absolute Lymphocytes 1.7 10^3/uL (1.2-3.4); Absolute Monocytes 1.1 10^3/uL (0.1-0.6); Absolute Neutrophils 6.5 10^3/uL (1.4-6.5); Hematocrit 44.3 % (39.0-52.0); Hemoglobin 15.1 g/dL (13.0-18.0); Mean Corp Hgb Conc. 34.1 g/dL (33.0-37.0); Mean Corpuscular Hgb 28.7 pg (27.0-31.0); Mean Corpuscular Volume 84.2 fL (80.0-94.0); Mean Platelet Volume 9.9 fL (7.4-10.4); Nucleated Red Blood Cells % 0 % (-); Platelet Count 257 10^3/uL (130-400); Red Blood Cell Count 5.26 10^6/uL (4.70-6.10); Red Cell Dist. Width 14.2 % (11.5-14.5); White Blood Cell Count 9.5 10^3/uL (4.8-10.8)
[2024-04-06 10:03] LABS: ALT (SGPT) 15 U/L (0-50); AST (SGOT) 32 U/L (17-59); Albumin 2.8 g/dl (3.5-5.0); Alkaline Phosphatase 109 U/L (38-126); Blood Urea Nitrogen 30 mg/dl (9-20); Calcium 8.9 mg/dl (8.4-10.2); Carbon Dioxide 28 mmol/L (22-30); Chloride 101 mmol/L (98-107); Estimated Creatinine Clearance 52 ml/min; Glucose 87 mg/dl (70-99); Potassium 4.5 mmol/L (3.5-5.1); Sodium 132 mmol/L (135-145); Total Bilirubin 1.2 mg/dl (0.2-1.3); Total Protein 5.4 g/dl (6.3-8.2); eGFR > 60.00
--- NOTE | 2024-04-06 10:35 | W.PN.CARDCBS ---
Addendum entered and electronically signed by Elton Delgado MD 04/06/24 14:18:
I saw and examined the patient.
The Wood Drill Operator's note was reviewed and I agree with the note.
Comment: Briefly, 78-year-old man past medical history of paroxysmal atrial fibrillation, PE on Eliquis, hypertension and neuropathy who presents for evaluation of chest discomfort
Chest pain is atypical as symptoms are never exertional in nature
Level troponin elevation here which appears to be chronic
EKG is unchanged from prior
Will defer possible repeat ischemic evaluation to his primary sewage screen operator
Transthoracic echocardiogram with low normal LV function and suggestion of elevated filling pressures, but no segmental wall motion abnormalities. Bilateral pleural effusions were noted.
He underwent thoracentesis with some improvement in his symptoms
Plan to discharge on low-dose Lasix
Outpatient follow-up has been arranged, stable for discharge from my perspective
Original Note:
Today's Communication / Plan
-
R pleural fluid appears transudative
po lasix 20mg daily
BMP in 1 week
likely stop asa, started this admission due to elevated trop. continue eliquis
will arrange OP cardiac follow up
Impression / Plan
-
Primary Sign Painter Apprentice: Dr. Tipton
Assessment:
Presentation with chest/throat discomfort
Mild trop elevation
B/L pleural effusions by CXR
History of HFpEF 12/2023 in setting of rapid AF
PAF
History of B/L PE, left DVT s/p focal lytic therapy 09/2023
Chronic OAC with eliquis
HTN
Hyperlipidemia
Possible neuropathy UE
peptic ulcer s/p EGD 02/05/24 with gastritis
GERD
Tonsillectomy/left ankle surgery
Acute appendix inflammation that required appendectomy by Dr. Lowery 2021
Multiple myeloma, diagnosed 04/04 by [facility]
Stress echo 09/20/21: No evidence by echo with myocardial ischemia, [address] depression in inferior leads and V5 V6, LVH, throat discomfort at rest which did not change with exercise, exercise capacity well above average, overall low risk study
ECHO 12/28/23: EF 50 to 55%, no regional wall motion abnormalities, moderate concentric LVH, GLS -17.1%, mild MR, mild AR, mild TR
ECHO 04/05/24: EF 55%, mild concentric LVH, mild MR, mild AR, trivial pericardial effusion, bilateral pleural effusions present
Plan:
-Patient presents with tightness in his throat over the last 2 weeks, however then starting this past Monday developed chest tightness. He reports over the last 24 hours his pain has been constant.
-diagnosed with MM 04/04
-Chest CT negative for PE, however noted moderate bilateral pleural effusions. s/p IV lasix 20mg on 04/05. Status post right thoracentesis 04/05 for 1500 cc
-Fluid appears to be transudative, possible CHF
-echo 04/05 with results as above, reviewed with patient 04/06
-Patient reports symptomatic improvement this morning. No further chest/throat discomfort
-Will place on trial of 20 mg p.o. Lasix daily
-BMP in 1 week
-trop 0.067. suspected nonischemic myocardial injury. could consider for OP ischemic evaluation, last stress in 2021 as above. consider stopping asa (started this admission due to elevated trop) to reduce bleeding risk
-remains in SR upon review of tele overnight
-He had GI evaluation given recent peptic ulcer. Repeat EGD 02/05/2024 with evidence of gastritis, no ulcers noted. continue ppi
-LDL 147. lipitor added this admission
-will arrange OP cardiac follow up
-d/w hospitalist.
Progress Note - Sign Painter Apprentice
Subjective
Date of Service: April 06, 2024
Reports no further chest/throat discomfort
Objective
Labs:
04/06/24 08:17
04/06/24 08:17
Labs
Hgb 15.1 g/dL (13.0-18.0) 04/06/24 08:17
Hct 44.3 % (39.0-52.0) 04/06/24 08:17
Plt Count 257 10^3/uL (130-400) 04/06/24 08:17
Sodium 132 mmol/L (135-145) L 04/06/24 08:17
Potassium 4.5 mmol/L (3.5-5.1) 04/06/24 08:17
BUN 30 mg/dl (9-20) H 04/06/24 08:17
Creatinine 1.2 mg/dL (0.7-1.3) 04/06/24 08:17
Glucose 87 mg/dl (70-99) 04/06/24 08:17
Troponins
04/04/24 04/04/24 04/04/24
15:51 18:47 19:22
Troponin I 0.047 H* 0.049 H* Cancelled
04/05/24 04/05/24
01:32 08:30
Troponin I 0.063 H* D 0.067 H*
Vital Signs and I&O:
Vital Signs
Temp Pulse Resp BP Pulse Ox
98.1 F 69 16 94/55 95
04/06/24 07:00 04/06/24 07:00 04/06/24 07:00 04/06/24 07:00 04/06/24 07:00
Vital Signs
Temp Pulse Resp BP Pulse Ox
98.1 F 69 16 94/55 95
04/06/24 07:00 04/06/24 07:00 04/06/24 07:00 04/06/24 07:00 04/06/24 07:00
Intake & Output
04/04/24 04/05/24 04/06/24 04/07/24
07:59 07:59 07:59 07:59
Intake Total 480 / 480 390 / 390
Balance 480 / 480 390 / 390
Physical Exam
Physical Exam
GEN: No distress, awake, alert, oriented x3
HEENT: supple, anicteric, mmm, eomi
LUNGS: CTA B/L, no wheezes/rales
CV: Reg, S1/S2, no murmur
ABD: soft, BS+
EXT: No cyanosis, clubbing, edema
NEURO: Gross non-focal
SKIN: Warm, pink, dry. No rash
[2024-04-06 11:00] VITALS: BP 98/58
[2024-04-06 11:15] LABS: LDH 228 U/L (120-246)
--- NOTE | 2024-04-06 11:42 | PTOTSP ---
Speech Therapy
Presentation: Patient's speech, language and cognition appeared to be WNL during informal conversation. Patient's vocal quality appeared to be weak but intelligible. Patient reports this 'weak voicing' to be going on for about ~1 month.
Swallowing Function: Patient was observed with several bites of cracker and sips (straw) of thin liquids in which patient appeared to tolerate as he did not exhibit any overt clinical s/sx of aspiration or difficulty with mastication. Patient shared
that he has been experiencing 'jaw pain' when he eats breakfast. This has been going on for about ~1 month.
Per RN, patient tolerated medications whole with thin liquids.
Recommendations:
1) Continuation of regular consistency solids and thin liquids
2) Standard reflux and aspiration precautions
3) Medications whole with thin liquids
4) Consider speech/ vocal evaluation to quantify vocal complaints
Plan: MECHANICAL ASSEMBLER will continue to follow; pending hospitalization.
--- NOTE | 2024-04-06 11:57 | W.PN.HOSP.TC ---
Today's Communication/Plan
-
d/c
Assessment / Plan
Assessment / Plan
78yo M with neuropathy, Hx of VTE on Eliquis, paroxysmal Afib, HTN, Hx of HFpEF, with concern for amyloidosis (evaporator suggested cardiac biopsy and patient had BM biopsy), multiple myeloma came with 2 weeks of tightness in his throat that on
the day before admission travelled down to midsternal area, not related to exertion, admitted for chest pain w/u with new EKG changes and elevated troponin. Cardio - Outpatient follow up. S/P R thoracentesis with transudative fluid by Lights
criteria. Diastolic dysfunction indeterminate on Echo, start lasix and follow BMP in 1 week with cardiology. GI consult: video swallow and barium swallow as outpatient. Recommend ENT as outpatient 2/2 concern for TMJ disfunction. Medically stable
for d/c
A/P:
#Chest dyscomfort
#Chronic HFpEF
#Chronic minimal pleural effusions
#Paroxysmal Afib
ASA, statin (if CPK WNL)
Telemetry,
Echo: no clinically significant valvular changes.
Nitro sublingual PRN
Cardio follows: Outpatient follow up. Diastolic dysfunction indeterminate, start lasix and follow BMP in 1 week with cardiology
S/P R thoracentesis with transudative fluid by Lights criteria - cardio planning for Lasix
#discomfort with swallowing
s/p EGD on 02/04 showing gastritis
GI consult: video swallow and barium swallow as outpatient
RADIAL DRILL PRESS OPERATOR consult: regular diet advised
Aspiration precautions
#Pain on chewing
ESR WNL
No visual disturbances, no TMJ tenderness
Outpatient ENT
#Multiple myeloma
follows with
#Hx of VTE
ddimer elevated - CT chest and LE US neg for VTE
#Neuropathy
#Essential HTN
cont home meds
DVT ppx on Eliquis
Full code
I have spent at least 58min reviewing chart, test results, communication with consultants and direct patient care
Anticipated Discharge: Today
Subjective/Interval History
-
Date of Service: April 06, 2024
Objective Data
-
Labs:
Laboratory Results
04/06/24
08:17
WBC 9.5
Hgb 15.1
Hct 44.3
Plt Count 257
Sodium 132 L
Potassium 4.5
Chloride 101
Carbon Dioxide 28
BUN 30 H
Creatinine 1.2
Glucose 87
Calcium 8.9
Total Bilirubin 1.2
AST 32
ALT 15
Alkaline Phosphatase 109
Vital Signs:
Vital Signs
Temp Pulse Resp BP Pulse Ox
97.5 F 63 16 98/58 97
04/06/24 11:00 04/06/24 11:00 04/06/24 11:00 04/06/24 11:00 04/06/24 11:00
I&O
04/05/24 04/06/24 04/07/24
06:59 06:59 06:59
Intake Total 480 / 480 390 / 390
Balance 480 / 480 390 / 390
[2024-04-06] MEDS: LASIX 20 MG PO (12:24)
[2024-04-06] MEDS: LYRICA 150 MG PO (12:25)
--- NOTE | 2024-04-06 12:49 | W.DCSUMMARY ---
Discharge Summary
Discharge Data
Date of Admission: 04/04/24
Date of Discharge: 04/06/24
-
Pending Results: No
Hospital Course
78yo M with neuropathy, Hx of VTE on Eliquis, paroxysmal Afib, HTN, Hx of HFpEF, with concern for amyloidosis (tax technician suggested cardiac biopsy and patient had BM biopsy), multiple myeloma came with 2 weeks of tightness in his throat that on
the day before admission travelled down to midsternal area, not related to exertion, admitted for chest pain w/u with new EKG changes and elevated troponin. Cardio - Outpatient follow up. S/P R thoracentesis with transudative fluid by Lights
criteria. Diastolic dysfunction indeterminate on Echo, start lasix and follow BMP in 1 week with cardiology. GI consult: video swallow and barium swallow as outpatient. Recommend ENT as outpatient 2/2 concern for TMJ disfunction - patient already
has an established one. Emphasized cklose follow up with Oncologist. ASA tropped as per Cardio. Lipitor increased since LDL not optimal.Medically stable for d/c
Patient and over the phone verbalized understanding of the instructions
I have spent at lest 38min preparing d/c
Patient was manegd for:
#Chest dyscomfort
#Chronic HFpEF
#Chronic minimal pleural effusions
#Paroxysmal Afib
#discomfort with swallowing
#Pain on chewing
#Multiple myeloma
#Hx of VTE
#Neuropathy
#Essential HTN
Discharge Plan
-
Patient Disposition: Home (Routine Discharge)
Discharge Diagnosis/Procedures: Chest pain
Diet: Low Cholesterol and Low Sodium
Activity: No restrictions
Driving Restrictions: As prior to admission
Bathing Restrictions: None
Blood Work: BMP in 1 week
Specialty Instructions: Weigh Daily- Call MD for wt gain/loss 3 lbs overnight/5 lbs in 1 week
Instructions: *[facility] Heart Failure Instructions
Referrals:
Jeffery Bustamante MD [Family Provider] -
Hoang Tipton MD [Active] - 04/09/24 11:20 am (You have a cardiology follow-up appointment at a [facility] office in [facility]. Please call with questions)
Lexus Lozano MD [Active] - in one to two weeks
Prescriptions:
New
furosemide 20 mg Tablet
20 mg PO DAILY Qty: 30 0RF
atorvastatin 20 mg tablet
20 mg PO DAILY Qty: 30 0RF
Continued
pantoprazole 40 mg Tablet,Delayed Release (Dr/Ec)
40 mg PO DAILY
metoprolol succinate 25 mg Tablet Extended Release 24 Hr
12.5 mg PO HS
Eliquis 5 mg Tablet
5 mg PO BID
pregabalin 150 mg capsule
150 mg PO BID@0000,1200
Patient Comments:
04/04/2024: last filled 03/20/24, 180 tabs for 90 days from [facility][id number]
Discharge Orders:
Discharge Patient (As Directed); Ordered 04/06/24
Ordered By: Paul Cardenas
Discharge Date and Time
Print Language: COLOMBIAN
--- NOTE | 2024-04-06 13:07 | CM ---
Met with patient at bedside to discuss DC plan; declined VN
Plan: discharge to home today; no needs; will transport home
[2024-04-06 16:05] VITALS: BP 94/58
== END 2024-04-06 15:30 | disposition home or self-care (01) ==
LOC: 4 WEST ACU 17:41
PROVIDERS: Emergency Medicine; ADMITTING PHYSICIAN Hospitalist; ATTENDING PHYSICIAN Internal Medicine; CONSULT PHYSICIAN Internal Medicine Cardiovascular Disease; CONSULT PHYSICIAN Internal Medicine Gastroenterology; EMERGENCY PHYSICIAN Emergency Medicine; FAMILY PHYSICIAN Family Medicine
DX: R07.89 Other chest pain (principal); J90 Pleural effusion, not elsewhere classified; I31.39 Other pericardial effusion (noninflammatory); I11.0 Hypertensive heart disease with heart failure; I50.32 Chronic diastolic (congestive) heart failure; I48.0 Paroxysmal atrial fibrillation; R13.10 Dysphagia, unspecified; K21.9 Gastro-esophageal reflux disease without esophagitis; R07.0 Pain in throat; M79.89 Other specified soft tissue disorders; M79.604 Pain in right leg; M79.605 Pain in left leg; E78.00 Pure hypercholesterolemia, unspecified; C90.00 Multiple myeloma not having achieved remission; G62.9 Polyneuropathy, unspecified; Z86.718 Personal history of other venous thrombosis and embolism; Z79.82 Long term (current) use of aspirin; Z90.49 Acquired absence of other specified parts of digestive tract; Z87.11 Personal history of peptic ulcer disease; Z79.01 Long term (current) use of anticoagulants; Z86.711 Personal history of pulmonary embolism
CPT/HCPCS: 32555; 71045; 71046; 71275; 80053; 80061; 82550; 83036; 83615; 83690; 83880; 83986; 84157; 84443; 84484; 85025; 85379; 85652; 87015; 87070; 87205; 89051; 92610; 93005; 93306; 93970; 99285; G0378; Q9967

== ENCOUNTER 2024-04-09 17:44 | Emergency (ER) | payer MEDICARE, OTHER, SELFPAY ==
[2024-04-09 17:46] VITALS: BP 118/71
--- NOTE | 2024-04-09 19:22 | ED.GENMED ---
History of Present Illness
General
Chief Complaint: Fall
Source: patient and spouse
Exam Limitations: none
Time Seen by Provider: 04/09/24 18:48
Nursing documentation reviewed up to this point in time: agreed with
History of Present Illness
History of Present Illness:
Patient is a 78-year-old male who was climbing over his garden to get something and fell outside on rocks. He did hit the front of his head and sustained lacerations. He is on Eliquis. He comes up he denies loss of conscious. Does complain of
soreness to the area denies any actual headache. Denies neck pain. Tetanus is up-to-date.
Past History
Past History
ED Past Medical History: Arrthythmia (Atrial fibrillation), GERD, Hypercholesterolemia and Other (Pulmonary embolism)
ED Past Surgical History: Appendectomy
Social History
Tobacco: Non-smoker
Alcohol: None
Drug: None
Personal:
Living: with family
Employment: Retired
Review of Systems
Review of Systems
Allergies reviewed?: Yes
Other source history: family
All Other Systems: ROS reviewed and negative except as documented in HPI and ROS
Constitutional: Reports no symptoms; Denies fever, fatigue or chills
Respiratory: Reports no symptoms
Cardiac: Reports no symptoms
ABD/GI: Reports no symptoms; Denies abdominal pain, nausea or vomiting
Musculoskeletal: Reports no symptoms
Skin: Reports other (lacerations to face )
Neurological: Reports no symptoms; Denies headache ( no LOC )
Hematologic/Lymphatic: Reports no symptoms
Psychiatric: Reports no symptoms
Phy Exam
General Physical Exam
General Presentation: no apparent distress
General age: appears stated age
General Skin: warm and dry
General Habitus: elderly
General Mental: alert
General Hydration: appears well hydrated
Cardiovascular Exam
Cardiovascular Exam: regular rate/rhythm, no murmur and normal peripheral pulses
Pulmonary Exam
Pulmonary Exam: lungs clear and no respiratory distress
Neurological Exam
Neurological Exam: alert and oriented x3
Musculoskeletal Exam
Musculoskeletal Exam: full ROM
Skin Exam
Skin Exam: normal color, warm/dry and other (+ partial thickness avulsion/abrasion laceration to forehead and nose )
Psychiatric Exam
Psychiatric Exam: normal mood/affect
Course
Orders/Labs/Results
Orders:
Orders
04/09/24 19:[address] Cervical Spine W/o Iv Contr Urgent
Comment:
Reason For Exam: trauma
CT Facial Bones W/o Iv Contras Urgent
Comment:
Reason For Exam: trauma
CT Head W/o Iv Contrast Urgent
Comment:
Reason For Exam: trauma
Vital Signs
Initial and Last Documented VS:
Initial Vital Signs
Temp Pulse Resp BP Pulse Ox
98.0 F 71 18 118/71 99
04/09/24 17:46 04/09/24 17:46 04/09/24 17:46 04/09/24 17:46 04/09/24 17:46
Last Documented Vital Signs
Temp Pulse Resp BP Pulse Ox
98.0 F 63 18 122/83 97
04/09/24 17:46 04/09/24 21:02 04/09/24 17:46 04/09/24 21:02 04/09/24 21:02
MDM/Problems Addressed
MDM/Problems Addressed:
Patient is a 78-year-old male status post fall. Patient describes mechanical fall around garden hitting his face patient has avulsion/abrasion lacerations to his forehead and nose. Wound care was done cleansed and antibiotic ointment. They do not
require closure. CT head facial bones and cervical spine negative. He is not nauseous no headache. He is nontoxic and looks well. Tetanus up-to-date
*Radiology
Radiology exam reviewed: radiology read reviewed
*Critical Care Note
Total Time (30-74mins, 75-104mins- exclusive of procedures): Not Applicable
ED Attending Note
-
Portions of this chart may have been created with voice recognition software.� Occasional wrong word or��sound alike� substitutions may have occurred due to the inherent limitations of voice recognition software.
Discharge Plan
Departure
Patient Disposition: Home (Routine Discharge)
Date of Disposition: 04/09/24
Time of Disposition: 21:19
Patient with high blood pressure during this ER visit?: No
Condition: Fair
Covid-19: Not Applicable
Discharge Problem:
Fall, Head injury, Face lacerations
Instructions: Wound Care (DC), Head Injury in Adults (DC), Skin Abrasions (DC)
Prescriptions:
No Action
pantoprazole 40 mg Tablet,Delayed Release (Dr/Ec)
40 mg PO DAILY
metoprolol succinate 25 mg Tablet Extended Release 24 Hr
12.5 mg PO HS
Eliquis 5 mg Tablet
5 mg PO BID
pregabalin 150 mg capsule
150 mg PO BID@0000,1200
Patient Comments:
04/04/2024: last filled 03/20/24, 180 tabs for 90 days from [facility][id number]
furosemide 20 mg Tablet
20 mg PO DAILY Qty: 30 0RF
atorvastatin 20 mg tablet
20 mg PO DAILY Qty: 30 0RF
Referrals:
Jeffery Bustamante MD [Family Provider] -
Activity Restrictions/Additional Instructions:
Keep wound clean and dry. You may wash twice if soap and water pat dry and apply small layer of antibiotic open to the air. Follow-up with your family doctorin the next several days as needed return if any worsening of symptoms.
Interventions
Interventions:
*Risk Screen - Suicide Last Done: 04/09/24 19:09
*General Assessment Last Done: 04/09/24 19:09
*Neglect/Abuse Screening Last Done: 04/09/24 19:09
*ED COVID-19 Vaccine History Last Done: 04/09/24 19:09
ED-Musculoskeletal Assessment Last Done: 04/09/24 18:32
ED- Neurological Assessment Last Done: 04/09/24 18:31
ED-Skin Assessment Last Done: 04/09/24 18:32
Discharge Date and Time
Print Language: YORUBA
[2024-04-09 21:02] VITALS: BP 122/83
== END 2024-04-09 21:46 | disposition home or self-care (01) ==
LOC: EMR 17:44
PROVIDERS: EMERGENCY PHYSICIAN Emergency Medicine; FAMILY PHYSICIAN Family Medicine
DX: S09.90XA Unspecified injury of head, initial encounter (principal); S01.81XA Laceration without foreign body of other part of head, initial encounter; W19.XXXA Unspecified fall, initial encounter; I48.91 Unspecified atrial fibrillation; K21.9 Gastro-esophageal reflux disease without esophagitis; E78.00 Pure hypercholesterolemia, unspecified; Z79.01 Long term (current) use of anticoagulants; Z86.711 Personal history of pulmonary embolism; Z90.49 Acquired absence of other specified parts of digestive tract
CPT/HCPCS: 99284; 70450; 70486; 72125

== ENCOUNTER → 2024-04-15 10:58 | Outpatient (REF) | payer MEDICARE, OTHER, SELFPAY | LOC: DHCBC/DCA 10:58 | PROVIDERS: ATTENDING PHYSICIAN Internal Medicine Cardiovascular Disease; FAMILY PHYSICIAN Family Medicine | DX: R07.89 Other chest pain (principal) | CPT/HCPCS: 78452; 93017; A9500 ==

== ENCOUNTER 2024-04-16 16:49 | Outpatient (RCR) | payer MEDICARE, OTHER, SELFPAY | END 2024-04-16 23:59 | disposition home or self-care (01) | LOC: RPT 16:49 | PROVIDERS: ATTENDING PHYSICIAN Psychiatry & Neurology Neurology; FAMILY PHYSICIAN Family Medicine | DX: M54.12 Radiculopathy, cervical region (principal); M79.2 Neuralgia and neuritis, unspecified; Z73.6 Limitation of activities due to disability; R20.2 Paresthesia of skin | CPT/HCPCS: 97110; 97140 ==

== ENCOUNTER 2024-04-19 14:27 | Inpatient (IN) | payer MEDICARE, OTHER, SELFPAY ==
[2024-04-19] VITALS (50 sets, daily range): BP systolic 80–105; BP diastolic 56–73; BMI 26.6
--- NOTE | 2024-04-19 09:53 | ED.GENMED ---
History of Present Illness
General
Chief Complaint: Blood Pressure Problem
Source: patient and spouse
Time Seen by Provider: 04/19/24 09:36
History of Present Illness
History of Present Illness:
Patient is an 79-year-old male presents emergency department after being referred here from the pulmonary office this morning. Patient states he was feeling his usual self until approximately 11 PM when he got up from the floor after doing physical
therapy exercises and started to feel weak. He states this is a typical symptom when he is in A-fib. He went upstairs and just at the top of the stairs had increasing weakness and fell down to the ground. He did not hit his head. He laid there
for a few moments with his and then got back up and went to bed. When he awoke this morning, he again noted generalized weakness. He went to the pulmonary office where he was noted to be in A-fib with hypotension, and referred to the ER.
Upon being referred to the ER he said he developed 'slight chest discomfort' which is now resolved. He denies bleeding, headache, dizziness, dyspnea, abdominal pain, neck pain, numbness, tingling, or other complaints. Patient typically takes 12.5
mg of metoprolol at night which she did last night. He took a 'extra' dose of 12.5 at approximately 6 AM this morning. Patient is fully anticoagulated and has not had any interruptions in his coagulation.
Past History
Past History
ED Past Medical History: Arrthythmia (Atrial fibrillation), GERD, HTN, Hypercholesterolemia and Other (Pulmonary embolism, questionable history of amyloidosis and multiple myeloma)
ED Past Surgical History: Appendectomy
Social History
Tobacco: Non-smoker
Alcohol: None
Drug: None
Personal:
Living: with family
Employment: Retired
Phy Exam
Physical Exam
Physical Exam:
GENERAL: Alert , in no apparent distress
EYE: pupils equal and reactive, no photophobia, EOMI
NECK: Supple, no significant adenopathy , no midline tenderness.
ENT: o/p clr, mmm, no gandara, no raccoon, no signs of acute head or facial injury. Resolving scab noted at forehead and upper nose without secondary infection.
CARDIAC: Irregularly irregular, tachycardic
LUNGS: Clear breath sounds bilaterally, no acute respiratory distress, no wheezes rales or rhonchi
ABDOMEN: Soft, without focal tenderness, no r/g, no cvat
NEUROLOGICAL: Alert and oriented, no focal neuro deficits
SKIN: Warm and dry, skin intact.
MUSCULOSKELETAL: No edema, well perfused.
PSYCH: Normal and appropriate interaction.
Course
Orders/Labs/Results
Orders:
Orders
04/19/24 09:24
ECG [Electrocardiogram (*1)] Urgent
Reason for Study: Chest Pain
04/19/24 09:25
EKG- Treatment ONCE
04/19/24 09:48
Pulse Ox/cont/shift [RESP] Stat
Quantity: 1
04/19/24 09:49
Cardiac Monitoring- Treatment ONCE
04/19/24 10:03
Complete Blood Count/No Diff Urgent
Comprehensive Metabolic Panel Urgent
NT-proBNP Urgent
Troponin I Urgent
04/19/24 10:11
Propofol [Diprivan] 20 ml .ROUTE .STK-MED
04/19/24 10:28
Electrocardiogram (*1) Urgent
Reason for Study: Atrial Fibrillation
EKG- Treatment ONCE
04/19/24 11:00
Midodrine [ProAmatine] 5 mg PO NOW STA
04/19/24 11:17
Midodrine [ProAmatine] 5 mg PO NOW STA
04/19/24 11:48
CR Chest Portable - 1 View Urgent
Comment:
Reason For Exam: hx pl eff
Reason Study Needs to be Portable: Patient Unstable
Abnormal Lab Results
04/19/24
10:03
BUN 34 H mg/dl
(9-20)
Creatinine 1.5 H mg/dL
(0.7-1.3)
Glucose 147 H mg/dl
(70-99)
Troponin I 0.388 H* ng/ml
Total Protein 5.9 L g/dl
(6.3-8.2)
Albumin 3.2 L g/dl
(3.5-5.0)
04/19/24 10:03
04/19/24 10:03
Vital Signs
Initial and Last Documented VS:
Initial Vital Signs
Temp Resp BP Pulse Ox
98.1 F 16 88/62 94
04/19/24 09:32 04/19/24 09:32 04/19/24 09:32 04/19/24 09:32
Last Documented Vital Signs
Temp Pulse Resp BP Pulse Ox
97.4 F 64 19 93/63 95
04/19/24 11:21 04/19/24 12:15 04/19/24 11:45 04/19/24 12:15 04/19/24 12:15
Procedures
Moderate Sedation
ASA Risk Score: Class II
Chart and allergies reviewed: Yes
Consent for anesthesia obtained: Yes
Time out completed (validating right patient & procedure): Yes
History of difficult intubation: No
Airway free of obstruction: Yes
Patient has a gag reflex: Yes
Patient is able to open mouth: Yes
Patient has no loose teeth: Yes
Medication administered by Provider during Moderate Sedation: IV Propofol (mg)
Total dose administered: 50
Cardioversion
Indication:: Afib
Performed by:: Dr Duc Wallace
Synchronized?: Yes
Energy Used: 200 joules
Number of attempts: 1
Successful?: Yes
Update Note
Update Note:
Patient presents to the Emergency Department with __weakness
Number and Complexity of Problems Addressed at the Encounter
� Chronic conditions affecting care:
� Acute Exacerbation and/or Progression of Chronic Illness:
� Differential Diagnosis includes: But not limited to A-fib with RVR, hypotension, anemia, etc. etc.
Amount and/or Complexity of Data to be Reviewed and Analyzed
� I performed an independent evaluation of and my interpretation is:
EKG: Read by me, A-fib with RVR, LAD, nonspecific mild ST depressions laterally, compared to April [address] ECG[address]
CT:
Xrays: Possible small pleural effusions, otherwise NAD
Laboratory Studies: Troponin elevated greater than baseline elevation, slight renal insufficiency compared to baseline
Other:
� Review of other/old records reveals: recent hospitalization/dc summary reviewed, stable cards w/u not in afib at that time, s/p thoracentesis, ?dxof amyloid
� Clinical information was obtained by an independent historian: who is bedside
� Prescriptions/Medications Considered but not given:
� Further testing considered but not performed:
Risk of Complications and/or Morbidity or Mortality of Patient Management
� Social determinants of health affecting care:
� Discussion with other providers (PCP, Hospitalists, Consultants, etc):1031 Pt noted to be hypotensive, symptomatic (weak, chest pressure) and in afib. He confirms he has not missed/delayed any DOAC doses, keeps a diary of
meds, etc. Case d/w dr Ge, [facility] etc reviewed, agrees with plan to cv. R/b d/w pt with presents, consent signed, and cv performed once 200 J to nsr.
Patient with sustained hypotension despite successful cardioversion. Repeat ECG demonstrates normal sinus rhythm. Case again discussed with cardiology, recommendation is midodrine, patient is reportedly hypotensive chronically.
He recently had his midodrine increased from 2.5 mg twice daily to 5 mg twice daily, although he admits he did not take it today. Patient given 10 mg now with minimal improvement in his blood pressure. Patient is lying in bed with eyes closed,
reports feeling weak and tired, no active chest pain. Troponin noted to be elevated despite baseline elevation, suspect related to rate and less so related to ischemia especially given patient past stress test last week. Concern regarding falls
weakness and hypotension. Case discussed with hospitalist for admission/observation.
� Escalation of care including admission/observation vs risk of discharge considered:
ED Attending Note
-
Portions of this chart may have been created with voice recognition software.� Occasional wrong word or��sound alike� substitutions may have occurred due to the inherent limitations of voice recognition software.
Discharge Plan
Departure
Patient Disposition: Admit
Date of Disposition: 04/19/24
Time of Disposition: 12:39
Admit to: Telemetry
Presentation/result/management discussed w/ accepting MD/DO: Hospitalist
Condition: Fair
Discharge Problem:
Atrial fibrillation, Hypotension
Prescriptions:
No Action
pantoprazole 40 mg Tablet,Delayed Release (Dr/Ec)
40 mg PO DAILY
metoprolol succinate 25 mg Tablet Extended Release 24 Hr
12.5 mg PO HS
Eliquis 5 mg Tablet
5 mg PO BID
pregabalin 150 mg capsule
150 mg PO BID@1200,2200
Patient Comments:
04/04/2024: last filled 03/20/24, 180 tabs for 90 days from [id number]
atorvastatin [Lipitor] 10 mg Tablet
10 mg PO QPM
amitriptyline 25 mg Tablet
25 mg PO HS
midodrine 2.5 mg Tablet
2.5 mg PO BID
furosemide 20 mg tablet
20 mg PO DAILY@1200
coQ10 (ubiquinol) 100 mg Capsule
100 mg PO DAILY
Referrals:
Jeffery Bustamante MD [Family Provider] -
Interventions
Interventions:
*Risk Screen - Suicide Last Done: 04/19/24 09:51
*Neglect/Abuse Screening Last Done: 04/19/24 09:51
ED- Fall Risk Assessment Last Done: 04/19/24 09:51
*ED COVID-19 Vaccine History Last Done: 04/19/24 09:50
ED- Cardiac Assessment Last Done: 04/19/24 09:52
ED- Neurological Assessment Last Done: 04/19/24 09:53
ED- Pulmonary Assessment Last Done: 04/19/24 09:53
Discharge Date and Time
Print Language: LITHUANIAN
[2024-04-19 10:11] LABS: Hemoglobin 14.8 g/dL (13.0-18.0); Mean Corp Hgb Conc. 33.6 g/dL (33.0-37.0); Mean Corpuscular Hgb 28.5 pg (27.0-31.0); Mean Corpuscular Volume 84.8 fL (80.0-94.0); Mean Platelet Volume 9.4 fL (7.4-10.4); Platelet Count 327 10^3/uL (130-400); Red Blood Cell Count 5.19 10^6/uL (4.70-6.10); Red Cell Dist. Width 14.5 % (11.5-14.5); White Blood Cell Count 8.3 10^3/uL (4.8-10.8)
[2024-04-19 10:30] LABS: ALT (SGPT) 14 U/L (0-50); AST (SGOT) 36 U/L (17-59); Albumin 3.2 g/dl (3.5-5.0); Alkaline Phosphatase 108 U/L (38-126); Blood Urea Nitrogen 34 mg/dl (9-20); Calcium 9.1 mg/dl (8.4-10.2); Carbon Dioxide 29 mmol/L (22-30); Chloride 101 mmol/L (98-107); Glucose 147 mg/dl (70-99); Potassium 4.8 mmol/L (3.5-5.1); Sodium 136 mmol/L (135-145); Total Bilirubin 0.9 mg/dl (0.2-1.3); Total Protein 5.9 g/dl (6.3-8.2); eGFR 46.77
[2024-04-19 10:38] LABS: NT-proBNP 7660 pg/ml; Troponin I 0.388 ng/ml
[2024-04-19] MEDS: ProAmatine 5 MG PO ×3 (11:26→18:05)
--- NOTE | 2024-04-19 14:20 | W.PN.UPDATE ---
Update Note
Progress Note Update
I personally performed a history and physical exam of the patient and discussed management with the resident. I reviewed the resident's note and agree with the documented findings and plan of care HPI/CC.
79-year-old male who presents with tachycardia, weakness, and hypotension. He was at Dr. Chirinos's office and was found to be hypotensive and tachycardic. Reports that he fell yesterday evening due to lightheadedness with mild trauma to his
forehead. In the ER the patient was in atrial fibrillation with rapid ventricular response. He was cardioverted to sinus rhythm. Currently he reports he has some chest discomfort but he thinks this is related to the cardiac leads. Denies
shortness of breath. Reports overall weakness.
95/67, 61, 19, 97.4 �F, 97% RA
Gen: NAD, AAOx3.
Eyes: EOMI, PERRLA, no scleral icterus.
Neck: supple.
CV: RRR, +S1/S2, no m/r/g.
Resp: Slightly decreased breath sounds in the bases, otherwise CTAB, no rales, wheezes, or rhonchi.
Abd: +BS, soft, NT, ND
Skin: No rashes.
Neuro: CN 2-12 intact, non-focal.
Psych: Normal mood and affect.
Lab Results
04/19/24
10:03
WBC 8.3
RBC 5.19
Hgb 14.8
Hct 44.0
MCV 84.8
MCH 28.5
MCHC 33.6
RDW 14.5
Plt Count 327
MPV 9.4
Sodium 136
Potassium 4.8
Chloride 101
Carbon Dioxide 29
BUN 34 H
Creatinine 1.5 H
eGFR 46.77
Glucose 147 H
Calcium 9.1
Total Bilirubin 0.9
AST 36
ALT 14
Alkaline Phosphatase 108
Troponin I 0.388 H*
Usb-Y-Bupbidcrhlu Pept 7660
Total Protein 5.9 L
Albumin 3.2 L
ECG post-CV (read by me): Normal sinus rhythm with first-degree AV block (OR interval 214 ms) with a rate of 69 bpm, left axis deviation, ST depression and T wave inversions in V4�V6, T wave inversions in I, aVL
CXR (read by me): Nonspecific hazy bibasilar opacities, right greater than left, which may represent layering pleural effusions. No focal airspace disease.
Afib with RVR:
-now in SR s/p cardioversion in ER
-c/s cards, discussed with Dr. Draper
-recent echo on 04/05/24 unchanged from echo 01/15/24, EF 55%
-recent nuc-stress 04/15/24 noted, POS for ischemia with 1mm inferior ST-dep, probably normal sestamibi perfusion imaging complicated by inferior soft tissue attenuation. Ejection fraction 43%.
-possible that EF 43% (as opposed to 55% on echo) due to soft tissue attenuation
-cont BB/Eliquis
Acute on chronic hypotension:
-with mild DESTINY
-NS @ 80cc/hr
-increase Midodrine to 5mg TID
Recent diagnosis MM:
-c/s Heme-onc
h/o PE:
-cont Eliquis
--- NOTE | 2024-04-19 14:20 | HPS.HSE ---
Addendum entered and electronically signed by Stephen Sheikh MD 04/19/24 16:08:
I personally performed a history and physical exam of the patient and discussed management with the resident. I reviewed the resident's note and agree with the documented findings and plan of care HPI/CC.
Original Note:
Family Physician
-
Family Physician: Jeffery Bustamante
Chief Complaint
-
Hypotension and a. fib
History of Present Illness
Harvey is a 79-year-old male who presented to the ED after his pulmonology outpatient visit noted him to be hypotensive and in atrial fibrillation. The patient started to feel unwell last night after doing some PT exercises. Upon standing up he
felt very weak and collapsed. He denies any loss of consciousness. He felt very weak and went to bed. He usually takes metoprolol 12.5 each night, but because the patient knew he was in A-fib from his [employer] Watch he took an extra dose of
metoprolol this morning. Today, he had a follow-up visit with his director of surgery for previously diagnosed PE. They noticed his blood pressure to be 88/62 to be in atrial fibrillation and recommended for him to come to the ED. The patient states he
has some chest tightness, but no chest pain. While sitting down he feels fine, but when he tries to stand he feels profoundly weak and lightheaded. He has no other complaints. Patient stated he has had a history of low blood pressure, but
frequently goes on 8 to 9 mile bike rides with his . He states he usually feels this type of weakness in a.fib. He faithfully takes his Eliquis. Of note, the patient recently has been diagnosed with multiple myeloma 2 weeks ago.
ED: In the ED his blood pressure was 80/62, heart rate 120. They cardioverted him and is now in sinus rhythm but still hypotensive. They gave him midodrine 5 mg. BP currently 95/67. Cardiology was consulted. Troponin 0.388. Creatinine 1.5
(baseline 1.0). BNP 7660. Echo 04/05/2024 EF 55% with intermediate diastolic dysfunction. Nuclear stress test 04/15/2024 EF 43%.
Medical History
Past Medical History
Past Medical History: Reports Other (A. fib, PE, DVT, multiple myeloma, GI bleed, GERD/peptic ulcer, hyperlipidemia, esophageal spasms, neuropathy)
Past Surgical History: Reports Other (Ankle surgery, appendectomy)
Social History
Tobacco: Non-smoker
Alcohol: None
Drug: None
Personal:
Living: With Family
Employment: Retired
Family History
Family History: Not pertinent
Allergies / Home Medications
Allergies reflects when Allergies were last updated in [facility].
Home Medications with original date entered in [facility]
Allergy/Medication List:
Allergies
Allergy/AdvReac Type Severity Reaction Status Date / Time
No Known Allergies Allergy Verified 04/19/24 09:35
Home Medications
apixaban 5 mg tablet (Eliquis) 5 mg PO BID Blood Clot Prevention/Tx 12/26/23
metoprolol succinate 25 mg tablet,extended release 24 hr 12.5 mg PO HS Blood Pressure 12/26/23
pantoprazole 40 mg tablet,delayed release 40 mg PO DAILY GERD 12/26/23
pregabalin 150 mg capsule 150 mg PO BID@1200,2200 04/04/24
amitriptyline 25 mg tablet 25 mg PO HS 04/19/24
atorvastatin 10 mg tablet (Lipitor) 10 mg PO QPM 04/19/24
coQ10 (ubiquinol) 100 mg capsule 100 mg PO DAILY 04/19/24
furosemide 20 mg tablet 20 mg PO DAILY@1200 04/19/24
midodrine 2.5 mg tablet 2.5 mg PO BID 04/19/24
Review of Systems
-
History Source: Patient
EENT: Reports No Symptoms
Respiratory: Reports No Symptoms
Cardiac: Reports Other (Chest tightness, but no pain, no SOB)
Abdomen/GI: Reports No Symptoms
: Reports No Symptoms
Musculoskeletal: Reports No Symptoms
Neurological: Reports No Symptoms
Physical Exam
Vital Signs
Vital Signs
Temp Pulse Resp BP Pulse Ox
97.4 F 61 19 95/67 97
04/19/24 11:21 04/19/24 13:45 04/19/24 11:45 04/19/24 13:30 04/19/24 13:45
Physical Exam
General: Comfortable and Conversant
Respiratory: Clear
Cardiac: S1/S2 and Regular Rhythm
GI: Soft, Non Tender and Non Distended
Musculoskeletal: No Edema
Skin: Warm and Dry
Neuro: AO x 3
Psych: Calm
Laboratory Results
-
04/19/24 10:03
04/19/24 10:03
Laboratory Results
Total Bilirubin 0.9 mg/dl (0.2-1.3) 04/19/24 10:03
AST 36 U/L (17-59) 04/19/24 10:03
ALT 14 U/L (0-50) 04/19/24 10:03
Alkaline Phosphatase 108 U/L (38-126) 04/19/24 10:03
Troponin I 0.388 ng/ml H* 04/19/24 10:03
Impression/Plan
-
IMPRESSION:
79-year-old male with past medical history of PE, DVT, atrial fibrillation, multiple myeloma presenting with hypotension and atrial fibrillation.
PLAN:
#atrial fibrillation with RVR
Patient presented with BP 88/62, heart rate 120, cardioversion into sinus rhythm in the ED
Troponin 0.338
BNP 7660
EKG after cardioversion sinus rhythm with first-degree AV block, left axis deviation, ST and T wave abnormalities
Chest x-ray nonspecific hazy bibasilar opacities, right greater than left, they represent layering pleural effusions. No focal airspace disease
Echo 04/05/2024 EF 55% with intermediate diastolic dysfunction, Possible EF of 45% per Nuclear stress test
Cardiology consulted
Continue Metoprolol and Eliquis
Trend troponin
Admit to telemetry
#acute on chronic hypotension
Pt has history of low BP
Mild DESTINY. Creatinine 1.5 on admission baseline 1.0
Maintenance fluids
Increase midodrine to 5 mg TID
Hold furosemide (previously on for pleural effusion)
#Recent diagnosis of MM
Consult with heme/onc
#Hx PE/DVT -Continue Eliquis
# Hyperlipidemia - Continue atorvastatin
#Esophageal spasms -Continue amitriptyline
#Neuropathy -Continue pregabalin
#GERD/Peptic ulcer - continue pantoprazole
#DVT prophylaxis on Eliquis
#Diet low cholesterol
Full Code
--- NOTE | 2024-04-19 15:25 | CON.CAR ---
Addendum entered and electronically signed by Josiane Draper DO 04/19/24 18:01:
I saw and examined the patient.
The Senior Bioinformatics Scientist's note was reviewed and I agree with the note.
Comment: Patient seen and examined with at bedside in ED 31. 78-year-old male with past medical history of paroxysmal atrial fibrillation on chronic Eliquis, history of PE, GERD, hypertension, CKD, orthostatic hypotension, neuropathy. He had
had echocardiogram which showed a stiff and thickened left ventricle, and was worked up for amyloid including technetium pyrophosphate scan which was negative, however SPEP/UPEP were abnormal and he underwent bone marrow biopsy and was diagnosed
with multiple myeloma. He was admitted 04/04 - 04/06/2024 for chest tightness, bilateral pleural effusion status post right thoracentesis for 1500 cc. He was diuresed and discharged on p.o. Lasix 20 mg daily. Given mildly elevated troponins he
underwent outpatient nuclear stress test 04/15/2024 with probably normal sestamibi perfusion imaging complicated by inferior soft tissue attenuation. He reports he has been seen by oncology, and is planning for evaluation at [facility]. He presented to
as referral from pulmonary office as he noted last evening after doing his PT exercises that he felt weak. Historically this has been consistent with prior afib episodes. He went upstairs and felt so weak this caused him to fall. He took extra
12.5mg of toprol however, weakness persisted this morning. He was noted to be in afib upon arrival to ER. As was also hypotensive, patient was cardioverted in ER (compliant with OP eliquis) which was successful. Hypotension has persisted. Cardiology
consulted for evaluation.
General: No acute distress, AAOX3. Scabbed abrasions on bridge of nose and forehead
Heart: Regular, + S1S2. 1/6 SM
Lungs: CTA b/l, negative wheezes/rales/rhonchi
Abd: Positive BS, NT/ND, neg rebound/rigidity/guarding
Ext: No edema
Neuro: nonfocal
Plan:
-Symptomatic rapid atrial fibrillation with hypotension and weakness status post cardioversion in ED 04/19/2024 to sinus rhythm/sinus bradycardia
-Hemodynamics have improved
-Blood pressure trends have been borderline on low-dose metoprolol succinate. Short-term management plan: Add amiodarone 200 mg twice daily for 2 weeks then 200 mg daily to hopefully maintain sinus rhythm
-Would consider outpatient evaluation with EP for possible ablation
-Continue uninterrupted Eliquis anticoagulation
History of heart failure with preserved ejection fraction with concern for infiltrative cardiomyopathy/amyloid
-Hold Lasix today and reassess in the morning
-Continue midodrine
-Patient has upcoming appointment next week at [facility] for further evaluation with cardiac amyloid specialist as well as head waiter/waitress to evaluate for myeloma
-Mildly elevated troponin with recent stress test not suggesting significant ischemia. No complaints of chest pain. Cardiac troponin may be elevated in processes such as amyloid. No plan for cardiac catheterization at this time
Will follow with you
Original Note:
Consultation
Consultation Request
Date/Time Consultation Performed: 04/19/24
Requesting Provider: Dr. Sheikh
Performing Provider: Joselin Gilliam PA-C for Dr. Draper
Reason for Consultation: hypotension, afib
Medical History
-
Chief Complaint: CP
History of Present Illness:
Patient is a 78-year-old male with past medical history of paroxysmal atrial fibrillation on chronic Eliquis, history of PE, GERD, hypertension, CKD, orthostatic hypotension, neuropathy. He had had echocardiogram which showed a stiff and thickened
left ventricle, and was worked up for amyloid including technetium pyrophosphate scan which was negative, however SPEP/UPEP were abnormal and he underwent bone marrow biopsy and was diagnosed with multiple myeloma. He was admitted 04/04 - 04/06/2024
for chest tightness, bilateral pleural effusion status post right thoracentesis for 1500 cc. He was diuresed and discharged on p.o. Lasix 20 mg daily. Given mildly elevated troponins he underwent outpatient nuclear stress test 04/15/2024 with
probably normal sestamibi perfusion imaging complicated by inferior soft tissue attenuation. He reports he has been seen by oncology, and is planning for evaluation at [place]. He presented to as referral from pulmonary office as he noted last
evening after doing his PT exercises that he felt weak. Historically this has been consistent with prior afib episodes. He went upstairs and felt so weak this caused him to fall. He took extra 12.5mg of toprol however, weakness persisted this
morning. He was noted to be in afib upon arrival to ER. As was also hypotensive, patient was cardioverted in ER (compliant with OP eliquis) which was successful. Hypotension has persisted. Cardiology consulted for evaluation.
Past Medical history:
Admission 04/04-04/06/24 for B/L pleural effusions s/p R thora 04/05/24
History of B/L PE, left DVT s/p focal lytic therapy 09/2023
PAF
Chronic OAC with eliquis
History of HFpEF 12/2023 in setting of rapid AF
LVH
HTN
Hyperlipidemia
Possible neuropathy UE
peptic ulcer s/p EGD 02/05/24 with gastritis
GERD
Acute appendix inflammation that required appendectomy by Dr. Lowery 2021
Multiple myeloma, diagnosed 04/04 by [facility]
Past Medical History
Past Medical History: Other (in HPI)
Social History
Tobacco: Non-Smoker
Alcohol: None
Drug: None
Personal: (59 yrs!)
Living: With Family
Employment: Retired
Family History
Family History: Reviewed & Not Pertinent
Allergies / Home Medications
Allergy/AdvReac Type Severity Reaction Status Date / Time
No Known Allergies Allergy Verified 04/19/24 09:35
�Medication �Instructions �Recorded �Confirmed �Type
apixaban 5 mg tablet (Eliquis) 5 mg PO BID Blood Clot 12/26/23 04/19/24 History
Prevention/Tx
metoprolol succinate 25 mg 12.5 mg PO HS Blood Pressure 12/26/23 04/19/24 History
tablet,extended release 24 hr
pantoprazole 40 mg tablet,delayed 40 mg PO DAILY GERD 12/26/23 04/19/24 History
release
pregabalin 150 mg capsule 150 mg PO BID@1200,2200 04/04/24 04/19/24 History
amitriptyline 25 mg tablet 25 mg PO HS 04/19/24 04/19/24 History
atorvastatin 10 mg tablet (Lipitor) 10 mg PO QPM 04/19/24 04/19/24 History
coQ10 (ubiquinol) 100 mg capsule 100 mg PO DAILY 04/19/24 04/19/24 History
furosemide 20 mg tablet 20 mg PO DAILY@1200 04/19/24 04/19/24 History
midodrine 2.5 mg tablet 2.5 mg PO BID 04/19/24 04/19/24 History
Review of Systems
-
History Source: Patient and Family
All other systems: Negative unless noted
Physical Exam
Vital Signs
Temp Pulse Resp BP Pulse Ox
97.4 F 64 19 93/66 96
04/19/24 11:21 04/19/24 14:45 04/19/24 11:45 04/19/24 14:30 04/19/24 14:45
Lab Results
04/19/24 10:03
04/19/24 10:03
Troponin I 0.388 ng/ml H* 04/19/24 10:03
Upo-S-Pwasaiafpaa Pept 7660 pg/ml 04/19/24 10:03
Physical Exam
General: No Apparent Distress and Comfortable
HEENT: Normocephalic, Anicteric and Moist Mucous Membranes
Respiratory: Clear and Non Labored Respirations
Cardiac: S1/S2 and Regular Rhythm
GI: Soft and Normal Bowel Sounds
Musculoskeletal: No Clubbing, No Cyanosis and No Edema
Skin: Warm and Dry
Neuro: AO x 3
Impression / Plan
-
Primary Iridologist: Dr. Tipton
Assessment:
Presentation with weakness
Hypotension, persistent
PAF with recurrence, s/p CV in ER 04/19/24
DESTINY
Elevated troponin, suspected nonischemic myocardial injury as s/p stress testing 04/15/24 with likely normal perfusion
Admission 04/04-04/06/24 for B/L pleural effusions s/p R thora for 1500cc 04/05/24
History of B/L PE, left DVT s/p focal lytic therapy 09/2023
Chronic OAC with eliquis
Chronic HFpEF
LVH
HTN
Hyperlipidemia
Possible neuropathy UE
peptic ulcer s/p EGD 02/05/24 with gastritis
GERD
Acute appendix inflammation that required appendectomy by Dr. Lowery 2021
Multiple myeloma, diagnosed 04/04 by [facility]
Stress echo 09/20/21: No evidence by echo with myocardial ischemia, [address] depression in inferior leads and V5 V6, LVH, throat discomfort at rest which did not change with exercise, exercise capacity well above average, overall low risk study
ECHO 12/28/23: EF 50 to 55%, no regional wall motion abnormalities, moderate concentric LVH, GLS -17.1%, mild MR, mild AR, mild TR
ECHO 04/05/24: EF 55% (upon relook 04/19, EF felt to be more likely ~50%), mild concentric LVH, mild MR, mild AR, trivial pericardial effusion, bilateral pleural effusions present
Plan:
-Patient presents with weakness. In atrial fibrillation, and as with hypotension, was cardioverted in ER 04/19/2024
-Now in sinus rhythm. Continue Eliquis and low-dose Toprol
-Suspect will not tolerate A-fib well. Will plan to start amiodarone 200 mg twice daily to maintain sinus
-With persistent hypotension even post cardioversion. As also with DESTINY, suspect patient is dry. CXR with improved pleural effusions compared to prior imaging. Will hold Lasix and agree with gentle IV fluid. continue midodrine
-With LVH by echo 04/05. Had outpatient amyloid workup, with negative PYP study.
-trop 0.388, higher than last admission. s/p stress test 04/15 with likely normal perfusion, EF 43%. trend trops, less chest discomfort than last admission (where peak trop 0.06). no cath at present given recent CV however may need to consider if
continues with symptoms of chest/throat discomfort
-needs follow up of MM
-d/w patient and at bedside
Data Reviewed
-
EKG: Tracing Personally Visualized and interpreted
Radiology: Report Reviewed by me
Medical Tests (Nuc Med, Echo etc): Report Reviewed by me
Labs: Labs Reviewed by me
Old Records: Reviewed
--- NOTE | 2024-04-19 17:49 | PTCARENOTE ---
Received patient from ED via stretcher. AAOx3. Ambulated with minimal assistance to bed. Assessed and oriented to room. biztalk consultant reading NSR with first degree AV block. Report given to Trish in IVU. Patient to be transferred per MD
order.
[2024-04-19 18:14] LABS: Troponin I 0.455 ng/ml
[2024-04-19] MEDS: NSS 500 IV (19:10)
[2024-04-19] MEDS: LIPITOR 10 MG PO (20:11)
[2024-04-19] MEDS: ELIQUIS 5 MG PO (20:11)
[2024-04-19] MEDS: PACERONE 200 MG PO (20:11)
[2024-04-19] MEDS: MELATONIN 3 MG PO (22:31)
[2024-04-19] MEDS: LYRICA 150 MG PO (22:31)
[2024-04-19] MEDS: ELAVIL 25 MG PO (22:31)
[2024-04-19] MEDS: TOPROL XL 12.5 MG PO (22:32)
--- NOTE | 2024-04-20 00:48 | PTCARENOTE ---
Pt received start of shift, HR SR w/ 1st degree. at bedside. Pt c/o intermittent CP described as pressure in sternum rated 2/10. EKG completed. states pt has been having same pain for months and are following a GI doctor for possible
esophageal spasms. Reinforced fall risk status w/ pt. Pt educated on purpose of amiodarone and metoprolol and updated on plan of care. Pt states understanding. Call [email or web address] within reach.
[2024-04-20 00:54] LABS: Troponin I 0.373 ng/ml
[2024-04-20] MEDS: NSS 1000 IV (01:26)
[2024-04-20 04:52] VITALS: BP 103/68
[2024-04-20 05:19] VITALS: BMI 26.8
[2024-04-20 05:29] LABS: Hematocrit 38.6 % (39.0-52.0); Mean Corp Hgb Conc. 33.7 g/dL (33.0-37.0); Mean Corpuscular Hgb 28.4 pg (27.0-31.0); Mean Corpuscular Volume 84.3 fL (80.0-94.0); Mean Platelet Volume 9.5 fL (7.4-10.4); Platelet Count 279 10^3/uL (130-400); Red Blood Cell Count 4.58 10^6/uL (4.70-6.10); Red Cell Dist. Width 14.6 % (11.5-14.5); White Blood Cell Count 7.6 10^3/uL (4.8-10.8)
[2024-04-20 05:53] LABS: Blood Urea Nitrogen 29 mg/dl (9-20); Calcium 8.6 mg/dl (8.4-10.2); Carbon Dioxide 29 mmol/L (22-30); Chloride 104 mmol/L (98-107); Estimated Creatinine Clearance 50 ml/min; Glucose 84 mg/dl (70-99); Magnesium 2.1 mg/dl (1.6-2.3); Potassium 4.5 mmol/L (3.5-5.1); Sodium 137 mmol/L (135-145); eGFR > 60.00
--- NOTE | 2024-04-20 07:35 | W.PN.CARDCBS ---
Addendum entered and electronically signed by Josiane Draper DO 04/20/24 10:06:
I saw and examined the patient.
The Lockstitch Tunnel Elastic Operator's note was reviewed and I agree with the note.
Comment: Patient seen and examined. Offers no new complaints. Denies dizziness/lightheadedness. No tachycardia. No chest pain or pressure.
GEN: No distress, awake, alert, oriented x3
HEENT: mmm
LUNGS: CTA B/L, no wheezes/rales
CV: Reg, S1/S2, no murmur
EXT: No cyanosis, clubbing, edema
NEURO: Gross non-focal
Plan:
-Symptomatic rapid atrial fibrillation with hypotension and weakness status post cardioversion in ED 04/19/2024 to sinus rhythm/sinus bradycardia
-Hemodynamics have improved and he remains in sinus rhythm
-Blood pressure trends have been borderline on low-dose metoprolol succinate. Short-term management plan: Add amiodarone 200 mg twice daily for 2 weeks then 200 mg daily to hopefully maintain sinus rhythm
-Repeat EKG this morning
-Would consider outpatient evaluation with EP for possible ablation
-Continue uninterrupted Eliquis anticoagulation
History of heart failure with preserved ejection fraction with concern for infiltrative cardiomyopathy/amyloid
-Appears euvolemic status post gentle IV hydration. No further IV fluids
-Continue midodrine
-Will discharge on Lasix 20 mg Monday and follow weights/CHF symptoms
-Patient has upcoming appointment next week at [facility] for further evaluation with cardiac amyloid specialist as well as general assembler to evaluate for myeloma
-Mildly elevated troponin with recent stress test not suggesting significant ischemia. No complaints of chest pain. Cardiac troponin may be elevated in processes such as amyloid. No plan for cardiac catheterization at this time
Stable from a cardiovascular standpoint for discharge home following review of pending EKG
Original Note:
Today's Communication / Plan
-
Creat improved, stop IVFs and restart PO lasix in AM
BP stable/improved. Continue midodrine
Remains in SR, continue amiodarone and Toprol
Follow up arranged
Impression / Plan
-
Primary Veneer Taper: Dr. Tipton
Assessment:
Presentation with weakness
Hypotension, persistent
PAF with recurrence, s/p CV in ER 04/19/24
DESTINY
Elevated troponin, suspected nonischemic myocardial injury as s/p stress testing 04/15/24 with likely normal perfusion
Admission 04/04-04/06/24 for B/L pleural effusions s/p R thora for 1500cc 04/05/24
History of B/L PE, left DVT s/p focal lytic therapy 09/2023
Chronic OAC with eliquis
Chronic HFpEF
LVH
HTN
Hyperlipidemia
Possible neuropathy UE
peptic ulcer s/p EGD 02/05/24 with gastritis
GERD
Acute appendix inflammation that required appendectomy by Dr. Lowery 2021
Multiple myeloma, diagnosed 04/04 by [facility]
Stress echo 09/20/21: No evidence by echo with myocardial ischemia, [address] depression in inferior leads and V5 V6, LVH, throat discomfort at rest which did not change with exercise, exercise capacity well above average, overall low risk study
ECHO 12/28/23: EF 50 to 55%, no regional wall motion abnormalities, moderate concentric LVH, GLS -17.1%, mild MR, mild AR, mild TR
ECHO 04/05/24: EF 55% (upon relook 04/19, EF felt to be more likely ~50%), mild concentric LVH, mild MR, mild AR, trivial pericardial effusion, bilateral pleural effusions present
Plan:
-Patient presented with weakness. In atrial fibrillation on arrival. Also w/ hypotension. s/p CV in ER 04/19/2024.
-Remains in SR on review of telemetry overnight.
-HR stable on Toprol 12.5mg daily. Started on amiodarone 200mg BID in an attempt to maintain SR. Will recheck EKG this AM.
-Continue Eliquis 5mg BID for anticoagulation.
-He also was noted to have DESTINY and was suspected to be dry. Lasix was held and he received gentle IVFs overnight.
-BP improved this AM, feeling less weak, and creat has improved. Would stop IVFs and resume PO lasix in AM.
-Continue midodrine 5mg TID.
-LVH noted by echo 04/05. Had outpatient amyloid workup, with negative PYP study.
-Elevated troponin noted, peaking at 0.455 and trending down thereafter. s/p stress test 04/15 with likely normal perfusion, EF 43%. No cath at present given recent CV however may need to consider if continues with symptoms of chest/throat discomfort
-needs follow up of MM, discs provided of cardiac studies for upcoming appt at [place].
Progress Note - Veneer Taper
Subjective
Date of Service: April 20, 2024
Feeling better this AM with less weakness. No SOB or chest discomfort.
Objective
Labs:
04/20/24 04:58
04/20/24 04:58
Labs
Hgb 13.0 g/dL (13.0-18.0) 04/20/24 04:58
Hct 38.6 % (39.0-52.0) L 04/20/24 04:58
Plt Count 279 10^3/uL (130-400) 04/20/24 04:58
Sodium 137 mmol/L (135-145) 04/20/24 04:58
Potassium 4.5 mmol/L (3.5-5.1) 04/20/24 04:58
BUN 29 mg/dl (9-20) H 04/20/24 04:58
Creatinine 1.2 mg/dL (0.7-1.3) 04/20/24 04:58
Glucose 84 mg/dl (70-99) 04/20/24 04:58
Troponins
04/19/24 04/19/24 04/19/24
10:03 16:26 17:39
Troponin I 0.388 H* Cancelled 0.455 H*
04/20/24
00:17
Troponin I 0.373 H*
Vital Signs and I&O:
Vital Signs
Temp Pulse Resp BP Pulse Ox
97.8 F 60 16 103 96
04/20/24 04:57 04/20/24 05:30 04/20/24 04:57 04/20/24 04:52 04/20/24 04:57
Vital Signs
Temp Pulse Resp BP Pulse Ox
97.8 F 60 16 96
04/20/24 04:57 04/20/24 05:30 04/20/24 04:57 04/20/24 04:52 04/20/24 04:57
Intake & Output
04/18/24 04/19/24 04/20/24 04/21/24
06:59 06:59 06:59 06:59
Intake Total 480 / 480
Balance 480 / 480
Physical Exam
Physical Exam
GEN: No distress, awake, alert, oriented x3
HEENT: supple, anicteric, mmm, eomi
LUNGS: CTA B/L, no wheezes/rales
CV: Reg, S1/S2, no murmur
EXT: No cyanosis, clubbing, edema
NEURO: Gross non-focal
SKIN: Warm, pink, dry. No rash
[2024-04-20 07:39] VITALS: BP 108/73
--- NOTE | 2024-04-20 09:19 | W.PN.HOSP.TC ---
Addendum entered and electronically signed by Stephen Sheikh MD 04/20/24 10:13:
Correction: BB continues at home dose
Addendum entered and electronically signed by Stephen Sheikh MD 04/20/24 10:12:
I saw and evaluated the patient. I reviewed the resident�s note and agree with findings and plan as documented in the resident�s note.
Patient reports he feels much improved from yesterday. Denies shortness of breath.
Gen: NAD, AAOx3.
Eyes: EOMI, PERRLA, no scleral icterus.
Neck: supple.
CV: remains RRR, +S1/S2, no m/r/g.
Resp: CTAB anteriorly, no rales, wheezes, or rhonchi.
Abd: +BS, soft, NT, ND
Skin: No rashes. No LE edema
Neuro: CN 2-12 intact, non-focal.
Psych: Normal mood and affect.
ECG post-CV (read by me): Normal sinus rhythm with first-degree AV block (TN interval 214 ms) with a rate of 69 bpm, left axis deviation, ST depression and T wave inversions in V4�V6, T wave inversions in I, aVL
CXR (read by me): Nonspecific hazy bibasilar opacities, right greater than left, which may represent layering pleural effusions. No focal airspace disease.
Afib with RVR:
-now in SR s/p cardioversion in ER
-recent echo on 04/05/24 unchanged from echo 01/15/24, EF 55%
-recent nuc-stress 04/15/24 noted, POS for ischemia with 1mm inferior ST-dep, probably normal sestamibi perfusion imaging complicated by inferior soft tissue attenuation. Ejection fraction 43%.
-possible that EF 43% (as opposed to 55% on echo) due to soft tissue attenuation
-cont Eliquis
-BB stopped, Amio started
-d/c on Lasix 20mg M/W/F
Acute on chronic hypotension:
-with mild DESTINY, now resolved with IVFs
-Midodrine increased to 5mg TID
Recent diagnosis MM:
-for follow up at [facility]
h/o PE:
-cont Eliquis
Medically cleared for discharge.
Total time spent on d/c = 35 min. This included today's physical exam, progress note, review of laboratory and diagnostic data, preparation of discharge documents and prescriptions, and discussions about the pt's hospital course and discharge plan
with the patient and other medical doctor nuclear medicine involved in the patient's care.
Original Note:
Today's Communication/Plan
-
Discharge today pending cardiology recommendations
Assessment / Plan
Assessment / Plan
#atrial fibrillation with RVR
Patient presented with BP 88/62, heart rate 120, cardioversion into sinus rhythm in the ED
Troponin 0.338
BNP 7660
EKG after cardioversion sinus rhythm with first-degree AV block, left axis deviation, ST and T wave abnormalities
Chest x-ray nonspecific hazy bibasilar opacities, right greater than left, they represent layering pleural effusions. No focal airspace disease
Echo 04/05/2024 EF 55% with intermediate diastolic dysfunction, Possible EF of 45% per Nuclear stress test
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 Pt has appointment next week with [facility] cardiac amyloid specialist
Troponin seems stable. 0.373 this am. No signs of ischemia could be due to amyloid per cards
BP improved
Remains in sinus rhythm on tele
Add amiodarone 200 BID for two weeks then 200mg daily to maintain rhythm per cards
Continue midodrine
Continue Metoprolol and Eliquis
Consider outpatient ablation
Pt no longer feels lightheaded and weak. Wants to go home.
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
Pt has appointment next week with [facility] cardiac amyloid specialist
Troponin seems stable. 0.373 this am. No signs of ischemia could be due to amyloid per cards
#acute on chronic hypotension
Pt has history of low BP
Mild DESTINY. Creatinine improved
Maintenance fluids
Continue midodrine 5 mg TID
Consider to hold furosemide after discharge (previously on for pleural effusion)
#Recent diagnosis of MM
Consult with heme/onc
#Hx PE/DVT -Continue Eliquis
# Hyperlipidemia - Continue atorvastatin
#Esophageal spasms -Continue amitriptyline
#Neuropathy -Continue pregabalin
#GERD/Peptic ulcer - continue pantoprazole
#DVT prophylaxis on Eliquis
#Diet low cholesterol
Full Code
Anticipated Discharge: Today
Subjective/Interval History
-
Date of Service: April 20, 2024
Pt feels much better and stated he has no longer feels lightheaded with standing up. He wants to go home
Objective Data
-
Labs:
Laboratory Results
04/20/24
04:58
WBC 7.6
Hgb 13.0
Hct 38.6 L
Plt Count 279
Sodium 137
Potassium 4.5
Chloride 104
Carbon Dioxide 29
BUN 29 H
Creatinine 1.2
Glucose 84
Calcium 8.6
Vital Signs:
Vital Signs
Temp Pulse Resp BP Pulse Ox
97.5 F 60 18 108/73 95
04/20/24 07:41 04/20/24 09:00 04/20/24 07:41 04/20/24 07:39 04/20/24 07:41
I&O
04/19/24 04/20/24 04/21/24
06:59 06:59 06:59
Intake Total 480 / 480
Balance 480 / 480
Review of Systems
-
History Source: Patient
Constitutional: Reports No Symptoms
Respiratory: Reports No Symptoms
Cardiac: Reports No Symptoms
Abdomen/GI: Reports No Symptoms
Genitourinary: Reports No Symptoms
Skin: Reports No Symptoms
Neuro: Reports No Symptoms
Physical Exam
-
General: No Apparent Distress and Comfortable
Respiratory: Clear to Auscultation
Cardiac: Regular Rhythm, S1/S2 and Bradycardic
GI: Soft, Nontender and Nondistended
Musculoskeletal: No Edema
Skin: Warm and Dry
Neuro: AO x 3
Psych: Calm
[2024-04-20] MEDS: ProAmatine 5 MG PO ×2 (09:26→12:50)
[2024-04-20] MEDS: PROTONIX 40 MG PO (09:26)
[2024-04-20] MEDS: ELIQUIS 5 MG PO (09:26)
[2024-04-20] MEDS: PACERONE 200 MG PO (09:27)
--- NOTE | 2024-04-20 10:59 | CON.ONC ---
Impression
Impression
afib w/ RVR - now NSR
h/o CHF
multiple myeloma
lambda light chain gammopathy
Plan
Plan
1. Multiple myeloma - lambda light chain
-w/ patient's newly diagnosed lambda light chain plasma cell dyscasia - additional evaluation and w/u underway for possible amylodiosis
-bone marrow congo red stain - appears to have been requested - will attempt to acquire results
-in process of arranging appts at [facility] regarding concern for amyloidosis - w/ Dr. Kevin Sifuentes as well as Dr. Logan - cardiology
-follows w/ Dr. Ryder as outpt w/ [place]
Will continue to follow with you
Patient History
History of Present Illness
79y/o male seen in consultation today regarding newly diagnosed multple myeloma w/ possible amyloidosis.
The patient has a h/o cardiomyopathy w/ echocardiogram in January concerning for amyloid, prompting amyloid nuclear PYP scan which revealing grade 1 equivocal score. An SPEP and UPEP were obtained w/ no monoclonal abnormalities; however, serum free
light chain evaluation on 01/29 revealed slight lambda light chain gammopathy - free lambda light chain of 194.3, w/ abnormal free kappa/lambda light chain ratio of 0.14. Bone marrow aspiration and biopsy were performed on 03/12 revealing 11-20%
monoclonal plasma cell c/w multiple myeloma. Additional bone marrow staining for congo red is in progress.
He has not had fat pad biopsy or cardiac biopsy.
The patient has met w/ Dr. Ryder and discussed diagnosis, and is in the process of making arrangements w/ consultation at [facility] w/ Dr. Kevin Sifuentes as well as Dr. Weiss, cardiology.
He is now admitted w/ rapid afib, which cardioverted in the ER to NSR.
Clinically, he is feeling better today. No SOB or chest pain at rest. No abdominal pain.
Past-Medical/Surgical History
PMH:
multiple myeloma - 11-20% plasma cells on recent marrow
lambda light chain gammopathy
cardiomyopathy - concern for possible amyloid
CHF
afib
History of B/L PE, left DVT s/p focal lytic therapy 09/2023
HTN
Hyperlipidemia
Possible neuropathy UE
peptic ulcer s/p EGD 02/05/24 with gastritis
GERD
PSH:
Appendectomy - Dr. Lowery 2021
SH: no tobacco, no significant ETOH
FH: non-contributory
Allergies: NKDA
Patient Medication
�Medication �Instructions �Recorded �Confirmed �Last Taken �Type
apixaban 5 mg tablet (Eliquis) 5 mg PO BID Blood Clot 12/26/23 04/19/24 04/19/24 History
Prevention/Tx
pantoprazole 40 mg tablet,delayed 40 mg PO DAILY GERD 12/26/23 04/19/24 04/19/24 History
release
atorvastatin 10 mg tablet (Lipitor) 10 mg PO QPM 04/19/24 04/19/24 04/18/24 History
amiodarone 200 mg tablet 200 mg PO BID Arrhythmia #28 tabs 04/20/24 Unknown Rx
amiodarone 200 mg tablet 200 mg PO DAILY Arrhythmia #30 tabs 04/20/24 Unknown Rx
amitriptyline 25 mg tablet 25 mg PO HS Gastrointestinal issue 04/20/24 04/19/24 04/18/24 Rx
#0 tabs
coQ10 (ubiquinol) 100 mg capsule 100 mg PO DAILY Supplement #0 caps 04/20/24 04/19/24 Unknown Rx
furosemide 20 mg tablet (Lasix) 20 mg PO .mwf #15 tabs 04/20/24 Unknown Rx
metoprolol succinate 25 mg 12.5 mg (1/2 x 25 mg) PO HS Blood 04/20/24 04/19/24 04/19/24 Rx
tablet,extended release 24 hr Pressure #30 tabs
midodrine 5 mg tablet 5 mg PO TID@0800,1300,1800 Blood 04/20/24 Unknown Rx
pressure #90 tabs
pregabalin 150 mg capsule 150 mg PO BID@1200,2200 Pain #0 04/20/24 04/19/24 04/19/24 Rx
caps
Active Medications
Generic Name Dose Route Start Last Admin
Trade Name Alina FOXN Reason Stop Dose Admin
Amiodarone HCl 200 mg 04/19/24 20:00 04/20/24 09:27
Amiodarone 200 Mg Tablet PO 05/17/24 19:59 200 mg
BID DONA Administration
Amitriptyline HCl 25 mg 04/19/24 22:00 04/19/24 22:31
Amitriptyline 25 Mg Tablet PO 05/17/24 21:59 25 mg
HS DONA Administration
Apixaban 5 mg 04/19/24 20:00 04/20/24 09:26
Apixaban (Eliquis) 5 Mg Tablet PO 05/17/24 19:59 5 mg
BID DONA Administration
Atorvastatin Calcium 10 mg 04/19/24 18:00 04/19/24 20:11
Atorvastatin (Lipitor) 10 Mg Tablet PO 05/17/24 17:59 10 mg
QPM DONA Administration
Furosemide 20 mg 04/22/24 08:00
Furosemide 20 Mg Tablet PO 05/20/24 07:59
MoWeFr@0800 DONA
Metoprolol Succinate 12.5 mg 04/19/24 22:00 04/19/24 22:32
Metoprolol 12.5 Mg Extended Release Dose (1/2 Of 25 Mg Xl Tablet) PO 05/17/24 21:59 12.5 mg
HS DONA Administration
Midodrine 5 mg 04/19/24 18:00 04/20/24 09:26
Midodrine 5 Mg Tablet PO 05/17/24 17:59 5 mg
TID@0800,1300,1800 DONA Administration
Pantoprazole Sodium 40 mg 04/20/24 08:00 04/20/24 09:26
Pantoprazole 40 Mg Delayed Release Tablet PO 05/18/24 07:59 40 mg
DAILY DONA Administration
Polyethylene Glycol 17 grams 04/19/24 16:49 04/20/24 09:27
Polyethylene Glycol Powder 17 Grams Packet PO 05/17/24 16:48 Not Given
DAILY DONA
Pregabalin 150 mg 04/19/24 22:00 04/19/24 22:31
Pregabalin 75 Mg Capsule PO 05/17/24 21:59 150 mg
BID@1200,2200 DONA Administration
Sodium Chloride 0 flush 04/19/24 17:00
Sodium Chloride 0.9% (Flush) Syringe IV 05/17/24 16:59
PER PROTOCOL DONA
Review of Systems
-
A ROS was obtained w/ pertinent findings as per HPI.
Physical Exam
-
General: Well Developed, Well Nourished and No Apparent Distress
HEENT: Negative Jaundice
Cardiology: Normal Sinus Rhythm
Pulmonary: Clear
Extremities: No C/C/E
Neurology: Non Focal
Labs
Lab Results
WBC 7.6 10^3/uL (4.8-10.8) 04/20/24 04:58
RBC 4.58 10^6/uL (4.70-6.10) L 04/20/24 04:58
Hgb 13.0 g/dL (13.0-18.0) 04/20/24 04:58
Hct 38.6 % (39.0-52.0) L 04/20/24 04:58
MCV 84.3 fL (80.0-94.0) 04/20/24 04:58
MCH 28.4 pg (27.0-31.0) 04/20/24 04:58
MCHC 33.7 g/dL (33.0-37.0) 04/20/24 04:58
RDW 14.6 % (11.5-14.5) H 04/20/24 04:58
Plt Count 279 10^3/uL (130-400) 04/20/24 04:58
MPV 9.5 fL (7.4-10.4) 04/20/24 04:58
Creatinine 1.2 mg/dL (0.7-1.3) 04/20/24 04:58
Vital Signs
Vital Signs
Temp Pulse Resp BP Pulse Ox
97.5 F 60 18 108/40 95
04/20/24 07:41 04/20/24 09:00 04/20/24 07:41 04/20/24 09:26 04/20/24 09:17
[2024-04-20 11:28] VITALS: BP 97/64
[2024-04-20 11:43] VITALS: BP 116/80
[2024-04-20] MEDS: LYRICA 150 MG PO (12:50)
--- NOTE | 2024-04-20 13:26 | W.DCSUMMARY ---
Addendum entered and electronically signed by Stephen Sheikh MD 04/20/24 13:48:
Read, reviewed, and agree. See same day progress note for additional details.
Original Note:
Discharge Summary
Discharge Data
Date of Admission: 04/19/24
Date of Discharge: 04/20/24
-
Pending Results: No
Hospital Course
Primary diagnosis:
Atrial fibrillation with rapid ventricular response
Acute on chronic hypotension
Acute kidney injury
Secondary diagnosis:
Multiple myeloma
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
History of PE/DVT
Hyperlipidemia
Esophageal spasm
Neuropathy
GERD/peptic ulcer
Hospital course:
Harvey is an 79-year-old male who presented to the ED on 04/19/2024 after found to be in atrial fibrillation and hypotensive in outpatient pulmonology visit. The night prior, patient was doing physical therapy exercises and when he went to stand up
he felt profoundly weak collapsed and fell. After a while he was able to get back up and went straight to bed. The next day he had a follow-up visit with the fire truck driver and they found him to be in A-fib and hypotensive and recommended for him
to come to the ED. Of note, the patient has chronic hypotension however generally feels well and is active. The weakness was abnormal for him. In the ED patient BP 88/62, heart rate 120, and atrial fibrillation. Troponin 0.38. Patient was
cardioverted in ER and went back to sinus rhythm, but remained hypotensive and felt lightheaded upon try to get up. Creatinine went up to 1.5 indicating DESTINY. Patient was admitted to telemetry, given increased midodrine, cardiology consulted.
Cardiology added amiodarone 200 twice daily, continue metoprolol dose, recommended continuation of Eliquis, hold Lasix (given due to prior pleural effusion). Troponin remained stable. Cardiology noted the mildly elevated troponin in regards to
recent stress test (04/15/2024) was not suggestive of significant ischemia. Patient does not complain of chest pain. Suspect cardiac troponin elevated in process such as amyloidosis as patient has recently been diagnosed with multiple myeloma.
Patient already has plans to follow-up with specialist for cardiac amyloidosis. Heme-onc was also consulted and saw patient. Plans to continue evaluation outpatient.
Today, the patient felt significantly better and was able to get up without feeling lightheaded. BP 116/80. Creatinine 1.2. Cardiology recommended discharging patient on amiodarone 200 twice daily for 2 weeks, then continuation of 200 mg daily in
addition to Lasix on Monday, Monday, Monday. Patient has plans to follow-up with cardiology oncology for recent MM diagnosis.
Discharge Plan
-
Patient Disposition: Home (Routine Discharge)
Discharge Diagnosis/Procedures: Atrial fibrillation with rapid ventricular response, cardioversion, hypotension
Condition: Good
Diet: 2 Gram Sodium
Activity: As tolerated
Driving Restrictions: Not until seen by your Dr
Bathing Restrictions: None
Specialty Instructions: Weigh Daily- Call MD for wt gain/loss 3 lbs overnight/5 lbs in 1 week
Referrals:
Nany Wagoner PA-C [Specified Professional Personl] - 05/08/24 8:20 am (You have a follow up visit with Dr. Tipton's Nany POWERS, [place]. Please call with questions. )
Jeffery Bustamante MD [Family Provider] - in less than 1 week
Additional Discharge Medication Instructions: Take Lasix 20mg once daily Monday, Monday and Monday
Amiodarone twice daily for two weeks, then daily
Prescriptions:
New
midodrine 5 mg Tablet
5 mg PO TID@0800,1300,1800 Qty: 90 0RF
amiodarone 200 mg tablet
200 mg PO BID Qty: 28 0RF
amiodarone 200 mg tablet
200 mg PO DAILY Qty: 30 0RF
Rx Instructions:
Start 9/24AM
furosemide [Lasix] 20 mg tablet
20 mg PO .mw Qty: 15 0RF
Continued
pantoprazole 40 mg Tablet,Delayed Release (Dr/Ec)
40 mg PO DAILY
Eliquis 5 mg Tablet
5 mg PO BID
atorvastatin [Lipitor] 10 mg Tablet
10 mg PO QPM
amitriptyline 25 mg Tablet
25 mg PO HS Qty: 0 0RF
metoprolol succinate 25 mg Tablet Extended Release 24 Hr
12.5 mg PO HS Qty: 30 0RF
pregabalin 150 mg capsule
150 mg PO BID@1200,2200 Qty: 0 0RF
Patient Comments:
04/04/2024: last filled 03/20/24, 180 tabs for 90 days from [id number]
coQ10 (ubiquinol) 100 mg Capsule
100 mg PO DAILY Qty: 0 0RF
Discontinued
midodrine 2.5 mg Tablet
2.5 mg PO BID
furosemide 20 mg tablet
20 mg PO DAILY@1200
Discharge Orders:
Discharge Patient (As Directed); Ordered 04/20/24
Ordered By: Stephen Sheikh
Discharge Date and Time
Print Language: BULGARIAN
--- NOTE | 2024-04-20 13:44 | PTCARENOTE ---
Pt walking around unit with RN with a steady gait, no dizziness. Pt seen by . Telemetry and IV device removed. Discharge instructions reviewed with pt and his regarding medications and their possible side effects, CHF guidelines,
reporting cares and concerns and follow up appt's. Very good understanding taught back to RN. Pt escorted out via wheelchair and discharged to home.
--- NOTE | 2024-04-22 11:33 | CM ---
Chart reviewed. Patient is independent of ADLS, lives with his in a 2 [address], 1 JODI, 0 DME. Patient with no discharge needs. Plan is to return home
== END 2024-04-20 13:35 | disposition home or self-care (01) | DRG 309 ==
LOC: IVU 14:27
PROVIDERS: ADMITTING PHYSICIAN Internal Medicine; CONSULT PHYSICIAN Internal Medicine Cardiovascular Disease; EMERGENCY PHYSICIAN Emergency Medicine; FAMILY PHYSICIAN Family Medicine; OTHER PHYSICIAN Internal Medicine Hematology & Oncology
DX: I48.91 Unspecified atrial fibrillation (principal); C90.00 Multiple myeloma not having achieved remission; E85.9 Amyloidosis, unspecified; I50.32 Chronic diastolic (congestive) heart failure; I13.0 Hypertensive heart and chronic kidney disease with heart failure and stage 1 through stage 4 chronic kidney disease, or unspecified chronic kidney disease; N17.9 Acute kidney failure, unspecified; I5A Non-ischemic myocardial injury (non-traumatic); I42.5 Other restrictive cardiomyopathy; I44.0 Atrioventricular block, first degree; G62.9 Polyneuropathy, unspecified; I95.89 Other hypotension; E78.00 Pure hypercholesterolemia, unspecified; S00.31XA Abrasion of nose, initial encounter; N18.9 Chronic kidney disease, unspecified; K21.9 Gastro-esophageal reflux disease without esophagitis; W10.8XXA Fall (on) (from) other stairs and steps, initial encounter; Y93.89 Activity, other specified; Y92.008 Other place in unspecified non-institutional (private) residence as the place of occurrence of the external cause; Z86.711 Personal history of pulmonary embolism; Z79.01 Long term (current) use of anticoagulants; Z86.718 Personal history of other venous thrombosis and embolism; Z87.11 Personal history of peptic ulcer disease
CPT/HCPCS: 70450; 71045; 80048; 80053; 83735; 83880; 84484; 85027; 92960; 93005; 94760; 99152; 99285

== ENCOUNTER 2024-05-03 11:15 | Outpatient (RCR) | payer MEDICARE, OTHER, SELFPAY | END 2024-05-13 09:10 | disposition home or self-care (01) | LOC: RPT 11:15 | PROVIDERS: ATTENDING PHYSICIAN Psychiatry & Neurology Neurology; FAMILY PHYSICIAN Family Medicine | DX: M54.12 Radiculopathy, cervical region (principal); M79.2 Neuralgia and neuritis, unspecified; Z73.6 Limitation of activities due to disability; R20.2 Paresthesia of skin | CPT/HCPCS: 97110; 97140 ==

== ENCOUNTER → 2024-05-07 11:51 | Outpatient (REF) | payer MEDICARE, OTHER, SELFPAY | LOC: RAD 11:51 | PROVIDERS: ATTENDING PHYSICIAN Nurse Practitioner Adult Health | DX: J90 Pleural effusion, not elsewhere classified (principal) | CPT/HCPCS: 71046 ==

== ENCOUNTER → 2024-05-22 14:32 | Outpatient (REF) | payer MEDICARE, OTHER, SELFPAY ==
[2024-05-22 09:18] LABS: % Basophils 0.1 % (0-2); % Eosinophils 2.7 % (0-6); % Immature Granulocytes 0.3 % (0-0.5); % Lymphocytes 19.2 % (20.5-51.1); % Monocytes 9.5 % (1.7-9.3); % Neutrophils 68.2 % (42.2-75.2); Absolute Eosinophils 0.2 10^3/uL (0-0.7); Absolute Lymphocytes 1.4 10^3/uL (1.2-3.4); Absolute Monocytes 0.7 10^3/uL (0.1-0.6); Absolute Neutrophils 4.8 10^3/uL (1.4-6.5); Hematocrit 45.4 % (39.0-52.0); Hemoglobin 14.8 g/dL (13.0-18.0); Mean Corp Hgb Conc. 32.6 g/dL (33.0-37.0); Mean Corpuscular Hgb 28.7 pg (27.0-31.0); Mean Platelet Volume 9.2 fL (7.4-10.4); Platelet Count 246 10^3/uL (130-400); Red Blood Cell Count 5.16 10^6/uL (4.70-6.10); Red Cell Dist. Width 15.2 % (11.5-14.5)
[2024-05-22 10:48] LABS: ALT (SGPT) 37 U/L (0-50); AST (SGOT) 46 U/L (17-59); Albumin 2.9 g/dl (3.5-5.0); Alkaline Phosphatase 108 U/L (38-126); Blood Urea Nitrogen 34 mg/dl (9-20); Calcium 8.4 mg/dl (8.4-10.2); Carbon Dioxide 28 mmol/L (22-30); Chloride 102 mmol/L (98-107); Glucose 85 mg/dl (70-99); Potassium 4.7 mmol/L (3.5-5.1); Sodium 137 mmol/L (135-145); Total Bilirubin 0.5 mg/dl (0.2-1.3); Total Protein 5.4 g/dl (6.3-8.2); eGFR 50.81
[2024-05-23 18:35] LABS: Hepatitis B Surface Antigen Negative (Negative)
[2024-05-23 18:49] LABS: Hepatitis B Core Ab, Total Negative (Negative); Hepatitis B Surface Antibody Negative
== END ==
LOC: OIDL 14:32
PROVIDERS: ATTENDING PHYSICIAN Internal Medicine Hematology & Oncology
DX: E85.4 Organ-limited amyloidosis (principal); C90.00 Multiple myeloma not having achieved remission
CPT/HCPCS: 80053; 85025; 86704; 86706; 86850; 86900; 86901; 87340

== ENCOUNTER 2024-06-01 22:40 | Emergency (ER) | payer MEDICARE, OTHER, SELFPAY ==
[2024-06-01 22:43] VITALS: BP 103/63
[2024-06-01 23:52] VITALS: BMI 26.3
[2024-06-01 23:55] VITALS: BP 117/71
--- NOTE | 2024-06-01 23:56 | EDRN ---
Pt was at a sporting event in [place] in the afternoon, got lightheaded so he went to sit down and fell. Pt struck his head on the ground, sustained injuries to bridge of nose, L forehead and R thumb. No loc. Ambulance was there and 'checked me
out.' Pt given options and decided he did not want to go to a local hospital so he declined transport. Pt came home, says he felt fine. Pt took a 1 mile walk after dinner without issue. Around 2229, pt decided to come to the ED because 'my head
doesn't feel right, like numb. I don't know if I have bleeding in there.' Pt is on eliquis. Pt denies headache, photophobia, n/v, visual/gait disturbance, dizziness, neck and back pain. Wounds were cleaned and dressed at home.
--- NOTE | 2024-06-02 00:22 | ED.MUSCINJ ---
HPI-Injury
General
Chief Complaint: Fall
Source: patient
Exam Limitations: none
Time Seen by Provider: 06/02/24 00:01
History of Present Illness-Injury
Initial Injury comments:
79-year-old male on [place] presents after a fall he sustained today. He was walking and fell forward hitting the face on pavement. No loss of consciousness. He went home ate dinner went for a walk after dinner and felt fine however he developed
more of a discomfort around his head. He denies neck pain. No loss conscious. No preceding chest pain or shortness of breath. No unilateral numbness or weakness.
Past History
Past History
ED Past Medical History: Arrthythmia (Atrial fibrillation), GERD, HTN, Hypercholesterolemia and Other (Pulmonary embolism, questionable history of amyloidosis and multiple myeloma)
ED Past Surgical History: Appendectomy
Social History
Tobacco: Non-smoker
Alcohol: None
Drug: None
Personal:
Living: with family
Employment: Retired
Phy Exam
Physical Exam
Physical Exam:
General: Well-appearing male no acute distress
HEENT: Normocephalic abrasions noted to the bridge of the nose and left eyebrow. Pupils equal round reactive to light TMs normal
Heart: Regular rate and rhythm
Lungs: Clear no wheeze
Neurologic: Alert and oriented no facial asymmetry good strength to the upper and lower extremities
Extremities: No cyanosis
Musculoskeletal exam: No deformities. Joints are nontender. Range of motion is good
Injury Course
Orders/Labs/Results
Orders:
Orders
06/01/24 22:[address] [CT Head W/o Iv Contrast] Urgent
Comment:
Reason For Exam: fall with head injury
MDM/Problems Addressed
Differential Diagnosis Includes:
Fall with head strike on [facility]. Consider contusion versus intracranial hemorrhage versus fracture. CT of the head was ordered and reviewed and is negative for acute traumatic findings. Patient reassured. Neurologically intact. No indication
for any further workup. Stable for discharge
*Critical Care Note
Total Time (30-74mins, 75-104mins- exclusive of procedures): Not Applicable
ED Attending Note
-
Portions of this chart may have been created with voice recognition software.� Occasional wrong word or��sound alike� substitutions may have occurred due to the inherent limitations of voice recognition software.
Discharge Plan
Departure
Patient Disposition: Home (Routine Discharge)
Date of Disposition: 06/02/24
Time of Disposition: 00:25
Patient with high blood pressure during this ER visit?: No
Discharge Problem:
Contusion
Prescriptions:
No Action
pantoprazole 40 mg Tablet,Delayed Release (Dr/Ec)
40 mg PO DAILY
Eliquis 5 mg Tablet
5 mg PO BID
amitriptyline 25 mg Tablet
25 mg PO HS Qty: 0 0RF
amiodarone 200 mg tablet
200 mg PO DAILY Qty: 30 0RF
midodrine 5 mg tablet
7.5 mg PO TID
furosemide [Lasix] 20 mg tablet
20 mg PO MOWEFR
pregabalin 150 mg capsule
150 mg PO BID
Activity Restrictions/Additional Instructions:
You may ice to the sore spots. Apply antibacterial ointment to the wounds. You may use Tylenol if needed for pain peer return if worse otherwise follow-up with your family doctor
Interventions
Interventions:
*Risk Screen - Suicide Last Done: 06/01/24 22:43
*General Assessment Last Done: 06/01/24 22:43
*Neglect/Abuse Screening Last Done: 06/01/24 22:43
ED- Fall Risk Assessment Last Done: 06/01/24 23:52
*ED COVID-19 Vaccine History Last Done: 06/01/24 23:52
ED-Musculoskeletal Assessment Last Done: 06/01/24 23:52
ED- Neurological Assessment Last Done: 06/01/24 23:52
ED-Skin Assessment Last Done: 06/01/24 23:52
Discharge Date and Time
Print Language: PASHTO
== END 2024-06-02 00:34 | disposition home or self-care (01) ==
LOC: EMR 22:40
PROVIDERS: EMERGENCY PHYSICIAN Student in an Organized Health Care Education/Training Program; FAMILY PHYSICIAN Family Medicine
DX: S00.83XA Contusion of other part of head, initial encounter (principal); S00.31XA Abrasion of nose, initial encounter; S00.212A Abrasion of left eyelid and periocular area, initial encounter; W19.XXXA Unspecified fall, initial encounter
CPT/HCPCS: 99284; 70450

== ENCOUNTER → 2024-07-04 10:59 | Outpatient (REF) | payer MEDICARE, OTHER, SELFPAY | LOC: HWRAD 10:59 | PROVIDERS: ATTENDING PHYSICIAN Family Medicine | DX: R31.21 Asymptomatic microscopic hematuria (principal) | CPT/HCPCS: 76770 ==

== ENCOUNTER → 2024-08-29 07:59 | Outpatient (REF) | payer MEDICARE, OTHER, SELFPAY | LOC: DHSLP 07:59 | PROVIDERS: ATTENDING PHYSICIAN Internal Medicine Critical Care Medicine; FAMILY PHYSICIAN Family Medicine | DX: G47.30 Sleep apnea, unspecified (principal); R06.83 Snoring | CPT/HCPCS: 95800 ==

== ENCOUNTER → 2024-09-24 08:43 | Outpatient (REF) | payer MEDICARE, OTHER, SELFPAY | LOC: DHSLP 08:43 | PROVIDERS: ATTENDING PHYSICIAN Internal Medicine Critical Care Medicine; FAMILY PHYSICIAN Family Medicine | DX: G47.33 Obstructive sleep apnea (adult) (pediatric) (principal); R09.02 Hypoxemia | CPT/HCPCS: 95810 ==

== ENCOUNTER → 2024-11-29 13:44 | Outpatient (REF) | payer MEDICARE, OTHER, SELFPAY | LOC: RAD 13:44 | PROVIDERS: ATTENDING PHYSICIAN Internal Medicine Critical Care Medicine; FAMILY PHYSICIAN Family Medicine | DX: J98.4 Other disorders of lung (principal) | CPT/HCPCS: 71046 ==

== ENCOUNTER → 2024-12-17 08:03 | Outpatient (REF) | payer MEDICARE, OTHER, SELFPAY | LOC: HWRAD 08:03 | PROVIDERS: ATTENDING PHYSICIAN Internal Medicine Critical Care Medicine; FAMILY PHYSICIAN Family Medicine | DX: J90 Pleural effusion, not elsewhere classified (principal); Z86.718 Personal history of other venous thrombosis and embolism; R06.02 Shortness of breath | CPT/HCPCS: 71250 ==

== ENCOUNTER → 2025-01-08 08:19 | Outpatient (REF) | payer MEDICARE, OTHER, SELFPAY ==
[2025-01-08 08:52] VITALS: BP 127/80; BP_SYST 79
[2025-01-08 08:52] LABS: PT 19.6 Sec (11.4-14.6)
[2025-01-08 09:45] VITALS: BP 124/77
[2025-01-08 10:06] LABS: Body Fluid pH 7.45
[2025-01-08 10:18] LABS: Body Fluid Mononuclear 91.7 %; Body Fluid Polymorphonuclear 8.3 %; Body Fluid WBC 1301 /CUMM
[2025-01-08 10:20] LABS: Body Fluid Glucose 98 mg/dl; Body Fluid LDH 105 U/L; Body Fluid Protein 2.1 g/dl
[2025-01-08 10:27] LABS: Body Fluid Second Tech US
== END ==
LOC: RADI 08:19
PROVIDERS: ATTENDING PHYSICIAN Physician Assistant; FAMILY PHYSICIAN Family Medicine; REFERRING PHYSICIAN Internal Medicine Critical Care Medicine
DX: J90 Pleural effusion, not elsewhere classified (principal); D68.8 Other specified coagulation defects
CPT/HCPCS: 88305; 32555; 36415; 71045; 82945; 83615; 83986; 84157; 85610; 87015; 87070; 87102; 87116; 87205; 87206; 88112; 89051

== ENCOUNTER → 2025-01-09 07:25 | Outpatient (REF) | payer MEDICARE, OTHER, SELFPAY ==
[2025-01-09 07:50] VITALS: BP 112/66; BP_SYST 73
[2025-01-09 08:17] VITALS: BP 116/65; BP_SYST 65
[2025-01-09 08:46] LABS: Body Fluid pH 7.45
[2025-01-09 08:50] VITALS: BP 116/65
[2025-01-09 09:05] LABS: Body Fluid WBC 1104 /CUMM
[2025-01-09 09:08] LABS: Body Fluid Second Tech CF
[2025-01-09 09:23] LABS: Body Fluid Glucose 106 mg/dl; Body Fluid LDH 103 U/L
== END ==
LOC: RADI 07:25
PROVIDERS: ATTENDING PHYSICIAN Internal Medicine Critical Care Medicine; FAMILY PHYSICIAN Family Medicine
DX: J90 Pleural effusion, not elsewhere classified (principal)
CPT/HCPCS: 32555; 71045; 82945; 83615; 83986; 84157; 87015; 87070; 87102; 87116; 87205; 87206; 89051

== ENCOUNTER → 2025-01-17 07:04 | Outpatient (REF) | payer MEDICARE, OTHER, SELFPAY | LOC: RCS 07:04 | PROVIDERS: ATTENDING PHYSICIAN Nurse Practitioner Adult Health; FAMILY PHYSICIAN Family Medicine | DX: R06.02 Shortness of breath (principal) | CPT/HCPCS: 93306 ==

== ENCOUNTER → 2025-01-22 08:49 | Outpatient (REF) | payer MEDICARE, OTHER, SELFPAY ==
[2025-01-22 09:01] VITALS: BP 122/75; BP_SYST 68
[2025-01-22 09:26] VITALS: BP 92/62; BP_SYST 66
== END ==
LOC: RADI 08:49
PROVIDERS: ATTENDING PHYSICIAN Internal Medicine Critical Care Medicine; FAMILY PHYSICIAN Family Medicine
DX: J90 Pleural effusion, not elsewhere classified (principal)
CPT/HCPCS: 88305; 32555; 71045; 88112

== ENCOUNTER → 2025-01-23 09:10 | Outpatient (REF) | payer MEDICARE, OTHER, SELFPAY ==
[2025-01-23 09:21] VITALS: BP 111/70; BP_SYST 71
[2025-01-23 09:42] VITALS: BP 112/71
== END ==
LOC: RADI 09:10
PROVIDERS: ATTENDING PHYSICIAN Internal Medicine Critical Care Medicine
DX: J90 Pleural effusion, not elsewhere classified (principal)
CPT/HCPCS: 88305; 32555; 71045; 88112

== ENCOUNTER 2025-01-27 06:15 | Day surgery (SDC) | payer MEDICARE, OTHER, SELFPAY ==
[2025-01-27] VITALS (11 sets, daily range): BP systolic 98–115; BP diastolic 53–62; BMI 25.8
[2025-01-27 15:14] LABS: Brochalveolar Lavage Character Clear (Clear); Brochalveolar Lavage Color Colorless; Brochalveolar Lavage Volume 3 ml; Brochalveolar Lavage WBC 37400 cells/ml; Brochalveolar Lavage WBC 45650 cells/ml
[2025-01-27 16:24] LABS: BAL Eosinophils 3 %; BAL Lining Cells 42 %; BAL Lymphocytes 7 %; BAL Lymphocytes 9 %; BAL Macrophages 31 %; BAL Neutrophils 16 %; BAL Neutrophils 17 %
[2025-01-27 16:25] LABS: BAL Eosinophils 2 %; BAL Lining Cells 40 %; BAL Macrophages 33 %
== END 2025-01-27 14:16 | disposition home or self-care (01) ==
LOC: SDS 06:15
PROVIDERS: ATTENDING PHYSICIAN Internal Medicine Critical Care Medicine
DX: J98.11 Atelectasis (principal); D84.821 Immunodeficiency due to drugs; J90 Pleural effusion, not elsewhere classified; J18.9 Pneumonia, unspecified organism; Z79.899 Other long term (current) drug therapy
CPT/HCPCS: 31624; 31623; 87015; 87070; 87102; 87116; 87205; 88112; 89051

== ENCOUNTER → 2025-02-17 08:29 | Outpatient (REF) | payer MEDICARE, OTHER, SELFPAY ==
[2025-02-17 08:30] VITALS: BP 128/84; BP_SYST 65
[2025-02-17 09:05] VITALS: BP 119/72; BP_SYST 60
[2025-02-17 10:07] LABS: Body Fluid Mononuclear 95.4 %; Body Fluid Polymorphonuclear 4.6 %; Body Fluid WBC 1446 /CUMM
[2025-02-17 10:08] LABS: Body Fluid Second Tech BGK
[2025-02-17 10:35] LABS: Body Fluid Glucose 87 mg/dl; Body Fluid LDH 108 U/L; Body Fluid Protein 2.3 g/dl
== END ==
LOC: RADI 08:29
PROVIDERS: ATTENDING PHYSICIAN Internal Medicine Critical Care Medicine
DX: J90 Pleural effusion, not elsewhere classified (principal)
CPT/HCPCS: 88305; 32555; 71045; 82945; 83615; 83986; 84157; 87015; 87070; 87102; 87116; 87205; 88112; 89051

== ENCOUNTER → 2025-02-18 08:27 | Outpatient (REF) | payer MEDICARE, OTHER, SELFPAY ==
[2025-02-18 08:45] VITALS: BP 105/62; BP_SYST 69
[2025-02-18 09:20] VITALS: BP 107/62; BP_SYST 64
== END ==
LOC: RADI 08:27
PROVIDERS: ATTENDING PHYSICIAN Internal Medicine Critical Care Medicine; FAMILY PHYSICIAN Family Medicine
DX: J90 Pleural effusion, not elsewhere classified (principal)
CPT/HCPCS: 32555; 71045

== ENCOUNTER → 2025-04-17 13:38 | Outpatient (REF) | payer MEDICARE, OTHER, SELFPAY | LOC: HWRAD 13:38 | PROVIDERS: ATTENDING PHYSICIAN Nurse Practitioner Primary Care; FAMILY PHYSICIAN Family Medicine | DX: E78.00 Pure hypercholesterolemia, unspecified (principal); E85.4 Organ-limited amyloidosis; C90.00 Multiple myeloma not having achieved remission; R31.9 Hematuria, unspecified | CPT/HCPCS: 71046; 75571 ==

== ENCOUNTER → 2025-04-22 12:07 | Outpatient (REF) | payer MEDICARE, OTHER, SELFPAY ==
[2025-04-22 12:25] VITALS: BP 140/82; BP_SYST 62
[2025-04-22 13:50] VITALS: BP 133/77; BP_SYST 60
[2025-04-22 14:05] VITALS: BP 133/77
[2025-04-22 15:16] LABS: Body Fluid Second Tech DW
== END ==
LOC: RADI 12:07
PROVIDERS: ATTENDING PHYSICIAN Internal Medicine Critical Care Medicine; FAMILY PHYSICIAN Family Medicine
DX: J90 Pleural effusion, not elsewhere classified (principal)
CPT/HCPCS: 32555; 71045; 82945; 83615; 83986; 84157; 87015; 87070; 87102; 87116; 87205; 87206; 88112; 88305; 89051

== ENCOUNTER → 2025-04-24 10:53 | Outpatient (REF) | payer MEDICARE, OTHER, SELFPAY ==
[2025-04-24 11:30] VITALS: BP 134/73; BP_SYST 58
[2025-04-24 12:15] VITALS: BP 119/73
[2025-04-24 13:35] LABS: Body Fluid Second Tech EF
== END ==
LOC: RADI 10:53
PROVIDERS: ATTENDING PHYSICIAN Internal Medicine Critical Care Medicine; FAMILY PHYSICIAN Family Medicine
DX: J90 Pleural effusion, not elsewhere classified (principal)
CPT/HCPCS: 32555; 71045; 82945; 83615; 83986; 84157; 87015; 87070; 87102; 87116; 87205; 87206; 88112; 88305; 89051

== ENCOUNTER → 2025-06-12 11:01 | Outpatient (REF) | payer MEDICARE, OTHER, SELFPAY ==
[2025-06-12 11:10] LABS: Hematocrit 46.9 % (39.0-52.0); Hemoglobin 15.3 g/dL (13.0-18.0); Mean Corp Hgb Conc. 32.6 g/dL (33.0-37.0); Mean Corpuscular Volume 98.3 fL (80.0-94.0); Platelet Count 289 10^3/uL (130-400); Red Cell Dist. Width 13.3 % (11.5-14.5)
== END ==
LOC: OIDL 11:01
PROVIDERS: ATTENDING PHYSICIAN Internal Medicine Hematology & Oncology
DX: E85.4 Organ-limited amyloidosis (principal); C90.00 Multiple myeloma not having achieved remission; R31.9 Hematuria, unspecified
CPT/HCPCS: 85025

== ENCOUNTER 2025-06-30 05:42 | Inpatient (IN) | payer MEDICARE, OTHER, SELFPAY ==
[2025-06-29 19:17] VITALS: BP 130/74
[2025-06-29 19:45] LABS: Hematocrit 46.6 % (39.0-52.0); Hemoglobin 15.3 g/dL (13.0-18.0); Mean Corp Hgb Conc. 32.8 g/dL (33.0-37.0); Mean Corpuscular Volume 95.7 fL (80.0-94.0); Nucleated Red Blood Cells % 0 % (-); Platelet Count 245 10^3/uL (130-400); Red Cell Dist. Width 13.7 % (11.5-14.5)
[2025-06-29 19:59] LABS: ALT (SGPT) 39 U/L (0-50); AST (SGOT) 45 U/L (17-59); Albumin 3.3 g/dl (3.5-5.0); Alkaline Phosphatase 116 U/L (38-126); Blood Urea Nitrogen 29 mg/dl (9-20); Calcium 8.7 mg/dl (8.4-10.2); Carbon Dioxide 32 mmol/L (22-30); Chloride 101 mmol/L (98-107); Glucose 65 mg/dl (70-99); Potassium 4.2 mmol/L (3.5-5.1); Sodium 134 mmol/L (135-145); Total Protein 5.9 g/dl (6.3-8.2); eGFR 46.48
[2025-06-29 21:56] LABS: Urine Character Bloody (Clear)
[2025-06-29 22:06] VITALS: BP 153/86
[2025-06-29 22:07] VITALS: BMI 27.5
[2025-06-29 22:08] LABS: Urine Red Blood Cell >100 /HPF (0-2); Urine Squamous Cell 0-2 /LPF (Few); Urine White Cell 0-2 /HPF (0-5)
[2025-06-29 23:01] VITALS: BP 144/78
[2025-06-30] VITALS (16 sets, daily range): BP systolic 112–165; BP diastolic 69–89; BMI 27.1; BMI 27.5
[2025-06-30] MEDS: TYLENOL 1000 MG PO (04:32)
--- NOTE | 2025-06-30 04:51 | ED.GENMED ---
History of Present Illness
General
Chief Complaint: Urinary Symptoms
Source: patient
Exam Limitations: none
Time Seen by Provider: 06/29/25 22:35
Nursing documentation reviewed up to this point in time: agreed with
History of Present Illness
History of Present Illness:
Note:
CHIEF COMPLAINT(S)
Hematuria
HISTORY OF PRESENT ILLNESS
The patient is an 80-year-old male with a known history of atrial fibrillation and cardiac amyloidosis, who presents with hematuria. The patient first noticed blood in his urine after attending scientologist today. His initial urination was clear, but the
subsequent three were bloody, described as blood mixed with urine. He denies the presence of clots and reports no associated pain, though there is slight discomfort when lying flat. He is currently on Apixaban (Eliquis) for atrial fibrillation and
to prevent blood clots due to a history of pulmonary embolism. The patient mentions receiving monthly Daratumumab (Darzalex) treatment for cardiac amyloidosis. He denies difficulty in urination or discolored urine prior to this episode.
PAST MEDICAL AND SURGICAL HISTORY
The patient has a history of atrial fibrillation and pulmonary embolism. Recent management includes monthly treatment with Daratumumab (Darzalex) for cardiac amyloidosis. The patient underwent a CT scan to monitor lung issues, which his
table tender sludge reported as stable. Pulmonary consultations are due in the near future.
CHRONIC MEDICAL CONDITIONS SIGNIFICANTLY AFFECTING CARE
Atrial fibrillation
Cardiac amyloidosis
Pulmonary embolism history
PHYSICAL EXAM
General: Alert, no acute distress.
Skin: Warm, dry.
Head: Normocephalic, atraumatic.
Neck: Supple, trachea midline.
Eye Ears, nose, mouth and throat: Oral mucosa moist.
Cardiovascular: Normal peripheral perfusion, no edema.
Respiratory: Respirations are non-labored.
Gastrointestinal: Abdomen nondistended.
Back: Normal range of motion, normal alignment.
Musculoskeletal: Normal ROM, normal strength.
Neurological: Alert and oriented to person, place, time, and situation, no focal neurological deficit observed.
Psychiatric: Cooperative, appropriate mood & affect.
PLAN
Insert a Wallace catheter to assess and quantify the severity of hematuria.
Perform saline irrigation if necessary to clear urinary tract bleeding.
Consider the possibility of a urinary tract infection.
Review recent CT scan findings with the table tender sludge and follow up as indicated due to stable lung condition.
DIFFERENTIAL DIAGNOSIS
The differential diagnosis includes, in no particular order and is not limited to:
1. Urinary tract infection
2. Anticoagulation-related bleeding
3. Bladder cancer
4. Renal stones
5. Prostate pathology
6. Coagulopathy
7. Trauma to the urinary tract
8. Renal cell carcinoma
9. Glomerulonephritis
10. Interstitial cystitis
CARE-UPDATE
06/30/25 - 03:54
The Wallace catheter was draining punch-colored urine and has clogged. Plan to attempt flushing again; if unsuccessful, proceed with continuous bladder irrigation (CBI).
Disposition:
SUMMARY OF ENCOUNTER
An 80-year-old male presented to the emergency department with hematuria. A Wallace catheter was initially placed but stopped draining, requiring multiple flushes. A 20 [place]uvian Continuous Bladder Irrigation (CBI) was implemented but later replaced with
a 24 [place]uvian catheter as recommended by the consulting urologist, Dr. Covarrubias. The patient continues on CBI.
DISPOSITION
Admit to hospital service with a urology consult.
MANAGEMENT OF THE PATIENTS CARE WAS DISCUSSED WITH
Management was discussed with Dr. Tuttle from the urology team to determine the appropriate catheter size and to establish the need for follow-up care.
PLAN
Admit the patient to the hospital for continued management of hematuria with urology consultation. Maintain Continuous Bladder Irrigation with the [address] in [address].
MEDICAL DECISION MAKING
-Complexity of Data Reviewed: Chronic conditions affecting care include atrial fibrillation, cardiac amyloidosis and a history of pulmonary embolism. Differential diagnosis considerations include anticoagulation-related bleeding, urinary tract
infection, bladder cancer, renal stones, prostate pathology, coagulopathy, trauma to the urinary tract, renal cell carcinoma, glomerulonephritis, and interstitial cystitis.
-Data:
Category 3
Discussion of management with Dr. Tuttle (urologist) for appropriate catheter management and follow-up care.
DIAGNOSIS
Hematuria (R31.9)
Anticoagulation-related bleeding (T45.515A)
Past History
Past History
ED Past Medical History: Arrthythmia (Atrial fibrillation), GERD, HTN, Hypercholesterolemia and Other (Pulmonary embolism, questionable history of amyloidosis and multiple myeloma)
ED Past Surgical History: Appendectomy
Social History
Tobacco: Non-smoker
Alcohol: None
Drug: None
Personal:
Living: with family
Employment: Retired
Phy Exam
Physical Exam
Physical Exam:
.
Course
Orders/Labs/Results
Orders:
Orders
06/29/25 19:26
Complete Blood Count/With Diff Urgent
Comprehensive Metabolic Panel Urgent
06/29/25 21:47
Urinalysis Reflex To Culture Urgent
Date Specimen was Collected: 06/29/25
Time Specimen was Collected: 19:21
Urine Microscopic Reflex Cult Urgent
06/30/25 00:01
CT Abd/pel Without Iv Or Oral Urgent
Reason For Exam: hematuria
06/30/25 04:29
Acetaminophen [Tylenol] 1,000 mg .ROUTE .STK-MED ONE
06/30/25 04:32
Acetaminophen [Tylenol] 1,000 mg PO NOW STA
06/30/25 04:40
Urine Culture Urgent
LISETH Source: Urine
Specimen Description:
Obtained by: Indwelling Catheter
Date Specimen was Collected: 06/29/25
Time Specimen was Collected: 23:00
06/30/25 05:20
Admit/Transfer Patient As Directed
Co-Sign Provider:
Level of Care: Inpatient admission
Assign to:: Telemetry
Physician / Group: Avery
Diagnosis: Hematuria
Reason for Telemetry: Arrhythmia
Date to Stop Telemetry: 07/03/25
Time to Stop Telemetry: 11:00
Reason for Hospitalization: Hematuria
Expected length of stay greater than two midnights?: Yes
ELOS- Estimated Length of Stay in days: 3
I certify the patient meets the requirements for IP care: Yes
PRN Pain Medication Management As Directed
May give lesser potent ordered pain med per pt: Yes
preference::
Protocol:: Medication orders for pain may be administered in a
manner that supports deferring to patient preference
when the pt is:
- Requesting an ordered lesser potent pain medication.
Least to most potent pain medications are defined
as: acetaminophen < NSAID < tramadol < opioids
(morphine, oxycodone, hydromorphone).
- Requesting a lesser dose of the same medication IF
ORDERED.
- Requesting a less intrusive route of administration
if both routes are prescribed by the provider (PO <
IV).
06/30/25 05:21
Code Status As Directed
Resuscitation Status: Full Code
07/03/25 11:00
DC Protocol for Telemetry ONCE
Abnormal Lab Results
06/29/25 06/29/25
19:26 21:47
MCV 95.7 H fL
(80.0-94.0)
MCH 31.4 H pg
(27.0-31.0)
MCHC 32.8 L g/dL
(33.0-37.0)
Absolute Lymphs (auto) 0.9 L 10^3/uL
(1.2-3.4)
Lymphocytes % 14.4 L %
(20.5-51.1)
Monocytes % 10.3 H %
(1.7-9.3)
Sodium 134 L mmol/L
(135-145)
Carbon Dioxide 32 H mmol/L
(22-30)
BUN 29 H mg/dl
(9-20)
Creatinine 1.5 H mg/dL
(0.7-1.3)
Glucose 65 L mg/dl
(70-99)
Total Protein 5.9 L g/dl
(6.3-8.2)
Albumin 3.3 L g/dl
(3.5-5.0)
Urine Ketones 1+ A
(Negative)
Ur Occult Blood Reflex 4+ A
(Negative)
Urine RBC >100 A /HPF
(0-2)
Urine Bacteria (Reflex) Few A
(Negative)
Urine Albumin (Reflex) 4+ A
(Neg - Trace)
06/29/25 19:26
06/29/25 19:26
Vital Signs
Initial and Last Documented VS:
Initial Vital Signs
Temp Pulse Resp BP Pulse Ox
97.8 F 62 18 130/74 96
06/29/25 19:17 06/29/25 19:17 06/29/25 19:17 06/29/25 19:17 06/29/25 19:17
Last Documented Vital Signs
Temp Pulse Resp BP Pulse Ox
97.8 F 62 18 165/85 91
06/29/25 19:17 06/29/25 19:17 06/29/25 19:17 06/30/25 05:00 06/30/25 04:55
*Radiology
Radiology exam reviewed: preliminary read by ED provider (Bladder scan showed retained urine)
*Pulse Oximetry
SaO2: 91
Oxygen Mode of Delivery: Room air
Patient hypoxic: no
*Critical Care Note
Total Time (30-74mins, 75-104mins- exclusive of procedures): Not Applicable
Update Note
Update Note:
NAME: CHIQUI GUTIERREZ
DATE OF EXAM: 06/30/2025
Patient No: [id number]
Physician: DAMARIS^Tahmina
Date of : 1945
Past Medical History (entered by Technologist):
Reason For Exam (entered by Technologist):
Other Notes (entered by Technologist): Pt arrives with c/o hematuria that started today. Denies blood clots. Pt is on Eliquis. Mild discomfort
Prior sent
Additional Information (per [facility]):
CT ABDOMEN/PELVIS WITHOUT CONTRAST
IMPRESSION:
1. Mild bladder distention with wall thickening, can be correlated with signs or symptoms of cystitis. Air within the bladder, may be related to instrumentation. No evidence of obstructive uropathy
2. No bowel obstruction. Normal gallbladder. Status post appendectomy.
Incidentals:
- Moderate stool burden
- No obstructive uropathy.
- No hepatic or pancreatic mass.
- No abdominal aortic aneurysm.
- No acute osseous abnormality.
- Moderate right and large left pleural effusions. Bibasilar atelectasis.
- No acute abnormality within the visualized soft tissues.
Case finalized on 06/30/25 00:36 EST
Brendan Adams M.D.
This report has been electronically signed and verified by the Radiologist whose name is printed above.
ED Attending Note
-
Portions of this chart may have been created with voice recognition software.� Occasional wrong word or��sound alike� substitutions may have occurred due to the inherent limitations of voice recognition software.
Discharge Plan
Departure
Patient Disposition: Admit
Date of Disposition: 06/30/25
Time of Disposition: 04:52
Presentation/result/management discussed w/ accepting MD/DO: Hospitalist
Condition: Fair
Discharge Problem:
Hematuria
Prescriptions:
No Action
amiodarone 200 mg tablet
200 mg PO DAILY Qty: 30 0RF
furosemide [Lasix] 20 mg tablet
20 mg PO DAILY
valacyclovir [Valtrex] 500 mg Tablet
500 mg PO DAILY
daratumumab 20 mg/mL Solution
100 mg IV DIRECTED
dexamethasone 20 mg Tablet
20 mg PO MONTHLY
Eliquis 5 mg Tablet
5 mg PO BID
pregabalin 75 mg Capsule
75 mg PO DAILY
amitriptyline 25 mg Tablet
35 mg PO DAILY
Rx Instructions:
takes a 25mg and a 10mg
Referrals:
Jeffery Bustamante MD [Family Provider, Family Practice]
Interventions
Interventions:
*Risk Screen - Suicide Last Done: 06/29/25 19:17
*General Assessment Last Done: 06/29/25 19:17
*ED- Fall Risk Assessment Last Done: 06/29/25 22:07
*ED COVID-19 Vaccine History Last Done: 06/29/25 22:07
*ED Influenza Vaccine History Last Done: 06/29/25 22:07
ED-Male Genitourinary Assessment Last Done: 06/29/25 22:07
Discharge Date and Time
Print Language: MALAYSIAN
--- NOTE | 2025-06-30 05:24 | HPS.HSE ---
Family Physician
-
Family Physician: Jeffery Bustamante
Chief Complaint
-
Bloody urine
History of Present Illness
Patient is an 80y M with PMH significant for amyloidosis, HFpEF, A-Fib and prior DVT / PE who presents to ED complaining of bloody urine. Patient states that he had a normal appearing episode of urination this afternoon after moravian. All
additional voiding episodes since that time have appeared grossly bloody. Patient reports 3-4 episodes of grossly bloody urine. No abdominal pain, flank pain. No fevers / chills. No lightheadedness, dizziness, chest pain, etc. He has some SOB
which he notes is chronic and unchanged.
He is on Eliquis for A-Fib and prior DVT / PE. He took this AM dose on Monday - but not his PM dose.
He denies any prior h/o hematuria.
Medical History
Past Medical History
Past Medical History: Reports Other
Additional Past Medical History:
Amyloidosis
Paroxysmal Atrial Fibrillation
DVT / PE (09/2023)
HFpEF
Bilateral Pleural Effusions
Restrictive Lung Disease
BARBI on CPAP
GERD
CKD III
Past Surgical History: Reports Other
Additional Past Surgical History:
Bilateral Thoracenteses (multiple - most recent 03/2025)
T&A
Left Ankle Surgery
Cardiac Biopsy (amyloid)
Hemorrhoidectomy
Appendectomy
Social History
Tobacco: Non-smoker
Alcohol: None
Drug: None
Personal:
Living: With Family
Family History
Family History: Not pertinent
Allergies / Home Medications
Allergies reflects when Allergies were last updated in [facility].
Home Medications with original date entered in [facility]
Allergy/Medication List:
Allergies
Allergy/AdvReac Type Severity Reaction Status Date / Time
No Known Allergies Allergy Verified 06/29/25 19:18
Home Medications
amiodarone 200 mg tablet 200 mg PO DAILY Arrhythmia #30 tabs 04/20/24
furosemide 20 mg tablet (Lasix) 20 mg PO DAILY 06/01/24
daratumumab 20 mg/mL intravenous solution 100 mg IV DIRECTED 01/08/25
dexamethasone 20 mg tablet 20 mg PO MONTHLY 01/08/25
valacyclovir 500 mg tablet (Valtrex) 500 mg PO DAILY 01/08/25
apixaban 5 mg tablet (Eliquis) 5 mg PO BID 01/27/25
amitriptyline 25 mg tablet 35 mg PO DAILY 04/22/25
pregabalin 75 mg capsule 75 mg PO DAILY 04/22/25
Review of Systems
-
History Source: Patient
A 12 point ROS was completed and negative except as noted: Yes
Constitutional: Denies Fever or Chills
Respiratory: Reports Trouble Breathing; Denies Cough
Cardiac: Denies Chest Pain or Palpitations
Abdomen/GI: Denies Abdominal Pain, Nausea, Vomiting or Diarrhea
: Reports Bleeding; Denies Dysuria, Frequency or Flank Pain
Neurological: Reports Headache; Denies Dizzy
Psych: Denies Depression or Anxiety
Physical Exam
Vital Signs
Vital Signs
Temp Pulse Resp BP Pulse Ox
97.8 F 62 18 165/85 91
06/29/25 19:17 06/29/25 19:17 06/29/25 19:17 06/30/25 05:00 06/30/25 04:55
Physical Exam
General: Other (80y M in no acute distress.)
HEENT: Moist mucous membranes and PERRLA
Respiratory: Other (Decreased BS at L base. No W/R/R.)
Cardiac: S1/S2 and Regular Rhythm; No Murmur
GI: Soft, Non Tender, Non Distended and Normal Bowel Sounds
Genito-urinary: Other (Wallace in place draining punch-colored urine. No clots visible at present.)
Musculoskeletal: No Clubbing, No Cyanosis and No Edema
Neuro: AO x 3
Laboratory Results
-
06/29/25 19:
06/29/25 19:
Laboratory Results
Total Bilirubin 0.9 mg/dl (0.2-1.3) 06/29/25 19:
AST 45 U/L (17-59) 06/29/25:
ALT 39 U/L (0-50) 06/29/25 19:
Alkaline Phosphatase 116 U/L (38-126) 06/29/25 19:
Impression/Plan
-
A/P: Patient is an 80y M with PMH significant for amyloidosis, HFpEF, restrictive lung disease and h/o DVT / PE on Eliquis who presents to ED complaining of gross hematuria since this afternoon.
Gross Hematuria
Coagulopathy on Eliquis
- Admit for further evaluation and treatment.
- Continue CBI and keep urine free of clots.
- UA at present does not suggest infection.
- Hold Eliquis.
- Urology evaluation for additional recommendations.
Paroxysmal Atrial Fibrillation
History of DVT / PE
- Patient reports A-Fib was remote with no recent occurrences.
- DVT / PE in 09/2023 (associated with travel at that time).
- Hold Eliquis as noted above.
- Continue amiodarone and monitor on telemetry.
Chronic HFpEF
Bilateral Pleural Effusions - L > R
- Stable. Bilateral pleural effusions s/p prior thoracenteses (last was 03/2025).
- IV Lasix daily for now.
- Check CXR.
- Follow clinically and consider IR eval / repeat thoracentesis if indicated.
Amyloidosis
- Patient on monthly daratumumab and followed by Hematology.
DESTINY on CKD III
- SCr = 1.5 compared to baseline around 1.2.
- Follow for changes.
Restrictive Lung Disease
BARBI on CPAP
- Stable. Followed by Pulm. Not on any chronic inhalers, etc.
- Continue nightly PAP therapy.
DVT Prophylaxis: SCDs
Code Status: Full
[2025-06-30] MEDS: VALTREX 500 MG PO (08:08)
[2025-06-30] MEDS: PACERONE 200 MG PO (08:09)
--- NOTE | 2025-06-30 10:20 | W.PN.URO.CBU ---
Today's Communication / Plan
-
cbi hand iorrigate
Assessment / Plan
-
bph with hematuria on apixaban continue cbi hand irrigate clots
Diagnosis
-
Date of Service: June 30, 2025
-
Patient Diagnosis:
BPH with slow stream obstructive sxs culminating in gross painless hematuria on apixaban
Post Op Day:
Subjective
-
stil hematuria
Objective
-
Vital Signs
Temp Pulse Resp BP Pulse Ox
97.8 F 63 24 140/73 94
06/30/25 08:06 06/30/25 10:00 06/30/25 08:06 06/30/25 08:06 06/30/25 08:19
Intake and Output
06/29/25 06/30/25 07/01/25
05:59 06:59 06:59
Output Total 450 / 450 275 / 275
Balance -450 / -450 -275 / -275
Output:
True Urine Output from CBI 450 / 450 275 / 275
Laboratory Results
06/29/25 19:26
06/29/25 19:26
Review of Systems
-
: Bleeding
Physical Exam
-
General - well developed, well nourished, no acute distress
Chest - clear bilaterally
Abdomen - soft, non-tender, positive bowel sounds, no CVAT, no incisional pain or distention
Genitalia - normal
Rectal - normal
Skin - warm & dry with no rash
Neuro - AOx3, no motor deficits
Extremities - no clubbing, no cyanosis, no edema
Incision - clean, dry
Dressing - clean, dry, intact
Counseling
-
continue present care
Care Review
Data Reviewed
Discussed with: Nursing
CT Scan: Image Pers Reviewed
--- NOTE | 2025-06-30 11:10 | CM ---
Chart reviewed and spoke with patient at ED bedside
Lives in [facility] home with . Independent with ADLs and ambulation
DME CPAP
PCP Dr. Jeffery Bustamante
RX plan yes
Pharmacy [facility] on [address]
no hx of VN nor SNF
DCP is to return home vs home with services
CM will continue to follow up for any dcp needs
[2025-06-30] MEDS: LYRICA 75 MG PO (12:45)
[2025-06-30] MEDS: LASIX 20 MG IV (12:45)
--- NOTE | 2025-06-30 14:30 | W.PN.UPDATE ---
Update Note
Progress Note Update
Seen and examined. Eliquis on hold
CBI running, Koolaid red urine
Gross hematuria
Hold Eliquis
Continue CBI
Follow urology recommendations
Follow hemoglobin
Transfuse if less than 7
PAF with with known history of VTE
Hold Eliquis
Monitor on telemetry
Continue Amio
Chronic HFpEF with bilateral pleural effusions (moderate/large left pleural effusion, moderate right pleural effusion)
IV Lasix for now
Monitor volume status
If becoming more hypoxemic may require Thora for left-sided pleural effusion
Amyloid
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
Not an DESTINY, ?progressive CKD
Monitor UOP
Avoid Nephrotoxins and hypotension
[2025-06-30] MEDS: TYLENOL 650 MG PO (21:35)
[2025-06-30] MEDS: ELAVIL 25 MG PO (22:50)
[2025-06-30] MEDS: ELAVIL 10 MG PO (22:50)
[2025-07-01 03:08] VITALS: BP 109/53
[2025-07-01 06:00] VITALS: BMI 26.3
[2025-07-01] MEDS: VALTREX 500 MG PO (08:15)
[2025-07-01] MEDS: PACERONE 200 MG PO (08:16)
[2025-07-01 08:17] LABS: Hematocrit 48.5 % (39.0-52.0); Hemoglobin 16.2 g/dL (13.0-18.0); Mean Corp Hgb Conc. 33.4 g/dL (33.0-37.0); Mean Corpuscular Volume 96.2 fL (80.0-94.0); Platelet Count 245 10^3/uL (130-400); Red Cell Dist. Width 13.5 % (11.5-14.5)
[2025-07-01] MEDS: LASIX 20 MG IV (08:17)
[2025-07-01 08:19] LABS: INR 1.55; PT 18.8 Sec (11.4-14.6)
[2025-07-01 08:20] LABS: APTT 39.4 Sec (23.4-35.0)
--- NOTE | 2025-07-01 08:27 | PTCARENOTE ---
Upon reviewing medications for am administration with patient at bedside, patient declined Flomax and Proscar. Pt verbalized wanting to talk to Dr. Covarrubias about medication indication before consuming pharmaceutical product. RN provided indication
and administration education, but pt still verbalized wanting to wait to discuss with Dr. Covarrubias.
[2025-07-01 08:30] VITALS: BP 125/74
--- NOTE | 2025-07-01 08:42 | PTCARENOTE ---
Messaged urology and hospitalist for wilder order
[2025-07-01 08:49] LABS: Blood Urea Nitrogen 27 mg/dl (9-20); Calcium 8.5 mg/dl (8.4-10.2); Carbon Dioxide 30 mmol/L (22-30); Chloride 98 mmol/L (98-107); Estimated Creatinine Clearance 45 ml/min; Glucose 92 mg/dl (70-99); Potassium 4.2 mmol/L (3.5-5.1); Sodium 130 mmol/L (135-145); eGFR 55.19
[2025-07-01 11:00] VITALS: BP 112/66
[2025-07-01] MEDS: LYRICA 50 MG PO (11:19)
--- NOTE | 2025-07-01 12:19 | W.PN.URO.CBU ---
Today's Communication / Plan
-
restart finasteride and flomax clampp cbi 0600 wed if no major clots today
Assessment / Plan
-
bph with hematuria on apixaban continue cbi hand irrigate clots if stavkwe over night willclamp cbi and do voifoidng trial added and discussd with pt ratiobale for finasteride and flomax
Diagnosis
-
Date of Service: July 01, 2025
-
Patient Diagnosis:
Post Op Day:
Patient Diagnosis:
BPH with slow stream obstructive sxs culminating in gross painless hematuria on apixaban
Post Op Day:
Subjective
-
less hematuria
Objective
-
Vital Signs
Temp Pulse Resp BP Pulse Ox
98.6 F 64 18 112/66 93
07/01/25 11:00 07/01/25 11:00 07/01/25 11:00 07/01/25 11:00 07/01/25 11:00
Intake and Output
06/30/25 07/01/25 07/02/25
06:59 06:59 06:59
Intake Total 720 / 720 480 / 480
Output Total 450 / 450 6375 / 6375
Balance -450 / -450 -5655 / -5655 480 / 480
Intake:
Oral fluids 720 / 720 480 / 480
Output:
True Urine Output from CBI 450 / 450 6375 / 6375
Laboratory Results
07/01/25 07:29
07/01/25 07:29
Review of Systems
-
: Difficulty Voiding
Physical Exam
-
General - well developed, well nourished, no acute distress
Chest - clear bilaterally
Abdomen - soft, non-tender, positive bowel sounds, no CVAT, no incisional pain or distention
Genitalia - normal
Rectal - normal
Skin - warm & dry with no rash
Neuro - AOx3, no motor deficits
Extremities - no clubbing, no cyanosis, no edema
Incision - clean, dry
Dressing - clean, dry, intact
Counseling
-
restart rxs clamp cbi 0600
Care Review
Data Reviewed
Discussed with: Nursing and Family
[2025-07-01] MEDS: PROSCAR 5 MG PO (12:35)
[2025-07-01] MEDS: FLOMAX 0.4 MG PO (12:35)
[2025-07-01 15:06] VITALS: BP 121/74
--- NOTE | 2025-07-01 15:34 | PTCARENOTE ---
Called [facility] to drop off an SCD machine to 1 acute
--- NOTE | 2025-07-01 16:49 | W.PN.HOSP.TC ---
Today's Communication/Plan
-
Assessment / Plan
Assessment / Plan
NAD
Scleral Anicteric
MMM
No JVD
CTABL
RRR, S1/S2
Soft, NT, ND, BS+
Warm, Dry
AAOx3
Calm
Gross hematuria
Hold Eliquis
Continue CBI, per Uro plan for clamp on 07/02 at 0600
Follow urology recommendations
Follow hemoglobin
Transfuse if less than 7
PAF with with known history of VTE
Hold Eliquis
Monitor on telemetry
Continue Amio
Chronic HFpEF with bilateral pleural effusions (moderate/large left pleural effusion, moderate right pleural effusion)
IV Lasix for now
Monitor volume status
If becoming more hypoxemic may require Thora for left-sided pleural effusion
Amyloid
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
Not an DESTINY, ?progressive CKD
Monitor UOP
Avoid Nephrotoxins and hypotension
Anticipated Discharge: > 48 hours
Subjective/Interval History
-
Date of Service: July 01, 2025
Seen and examined. No new complaints. No acute overnight events.
Objective Data
-
Labs:
Laboratory Results
07/01/25
07:29
WBC 9.9
Hgb 16.2
Hct 48.5
Plt Count 245
PT 18.8 H
INR 1.55
APTT 39.4 H
Sodium 130 L
Potassium 4.2
Chloride 98
Carbon Dioxide 30
BUN 27 H
Creatinine 1.3
Glucose 92
Calcium 8.5
Vital Signs:
Vital Signs
Temp Pulse Resp BP Pulse Ox
98 F 68 16 121/74 95
07/01/25 15:06 07/01/25 15:06 07/01/25 15:06 07/01/25 15:06 07/01/25 15:06
I&O
06/30/25 07/01/25 07/02/25
06:59 06:59 06:59
Intake Total 720 / 720 480 / 480
Output Total 450 / 450 6375 / 6375
Balance -450 / -450 -5655 / -5655 480 / 480
[2025-07-01 19:10] VITALS: BP 121/68
[2025-07-01] MEDS: ELAVIL 25 MG PO (21:04)
[2025-07-01] MEDS: ELAVIL 10 MG PO (21:04)
[2025-07-01] MEDS: TYLENOL 650 MG PO (22:52)
[2025-07-01 23:49] VITALS: BP 128/68
[2025-07-02] VITALS (10 sets, daily range): BP systolic 76–124; BP diastolic 48–71; PULSE 66–76; BMI 25.9
--- NOTE | 2025-07-02 06:09 | PTCARENOTE ---
CBI stopped as ordered
[2025-07-02] MEDS: MIRALAX 17 GRAMS PO (06:15)
[2025-07-02 08:03] LABS: Hematocrit 46.5 % (39.0-52.0); Hemoglobin 15.8 g/dL (13.0-18.0); Mean Corp Hgb Conc. 34.0 g/dL (33.0-37.0); Mean Corpuscular Volume 93.2 fL (80.0-94.0); Platelet Count 235 10^3/uL (130-400); Red Cell Dist. Width 13.4 % (11.5-14.5)
[2025-07-02 08:59] LABS: Blood Urea Nitrogen 33 mg/dl (9-20); Calcium 8.6 mg/dl (8.4-10.2); Carbon Dioxide 28 mmol/L (22-30); Chloride 97 mmol/L (98-107); Estimated Creatinine Clearance 45 ml/min; Glucose 113 mg/dl (70-99); Potassium 4.0 mmol/L (3.5-5.1); Sodium 128 mmol/L (135-145); eGFR 55.19
[2025-07-02] MEDS: LYRICA 75 MG PO (09:13)
[2025-07-02] MEDS: PROSCAR 5 MG PO (09:13)
[2025-07-02] MEDS: PACERONE 200 MG PO (09:13)
[2025-07-02] MEDS: VALTREX 500 MG PO (09:13)
[2025-07-02] MEDS: FLOMAX 0.4 MG PO (09:13)
[2025-07-02] MEDS: LASIX 20 MG IV (09:13)
--- NOTE | 2025-07-02 09:33 | W.PN.URO.CBU ---
Today's Communication / Plan
-
voiding trial replace wilder if distended ain r no void
Assessment / Plan
-
bph with hematuria on apixaban clear today lala remove wilder and give voiding trial home toad without wilder i voids or with wilder if fails voiding trial restart eliqus tomorrow expect blod for we or 2 family aware also home on
finasteride and flomax
Diagnosis
-
Date of Service: July 02, 2025
-
Patient Diagnosis:
Post Op Day:
Patient Diagnosis:
Post Op Day:
Patient Diagnosis:
BPH with slow stream obstructive sxs culminating in gross painless hematuria on apixaban
Post Op Day:
Subjective
-
urine clear off cbi with eliquis held
Objective
-
Vital Signs
Temp Pulse Resp BP Pulse Ox
97.7 F 62 18 124/71 96
07/02/25 08:00 07/02/25 08:00 07/02/25 08:00 07/02/25 08:00 07/02/25 08:00
Intake and Output
07/01/25 07/02/25 07/03/25
06:59 06:59 06:59
Intake Total 720 / 720 1440 / 1440
Output Total 4596 / 1733 3450 / 3450
Balance -5655 / -5655 -2009 /
Intake:
Oral fluids 720 / 720 1440 / 1440
Output:
True Urine Output from CBI 8526 / 8710 0300 / 3450
Laboratory Results
07/02/25 07:29
07/02/25 07:29
Review of Systems
-
: Difficulty Voiding
Physical Exam
-
General - well developed, well nourished, no acute distress
Chest - clear bilaterally
Abdomen - soft, non-tender, positive bowel sounds, no CVAT, no incisional pain or distention
Genitalia - normal
Rectal - normal
Skin - warm & dry with no rash
Neuro - AOx3, no motor deficits
Extremities - no clubbing, no cyanosis, no edema
Incision - clean, dry
Dressing - clean, dry, intact
Care Review
Data Reviewed
Discussed with: Hospitalist, Nursing and Family
[2025-07-02 11:32] LABS: Glucose - Point of Care 182 mg/dl (70-99)
[2025-07-02 11:47] LABS: Hematocrit 46.7 % (39.0-52.0); Hemoglobin 15.9 g/dL (13.0-18.0); Mean Corp Hgb Conc. 34.0 g/dL (33.0-37.0); Mean Corpuscular Volume 92.5 fL (80.0-94.0); Platelet Count 249 10^3/uL (130-400); Red Cell Dist. Width 13.5 % (11.5-14.5)
[2025-07-02 11:58] LABS: Blood Urea Nitrogen 33 mg/dl (9-20); Calcium 8.4 mg/dl (8.4-10.2); Carbon Dioxide 30 mmol/L (22-30); Chloride 98 mmol/L (98-107); Estimated Creatinine Clearance 42 ml/min; Glucose 108 mg/dl (70-99); Potassium 4.0 mmol/L (3.5-5.1); Sodium 130 mmol/L (135-145); eGFR 50.49
--- NOTE | 2025-07-02 12:27 | RR ---
A Rapid Response was called on this patient, please see Rapid Response form.
Was called into room to assist w/ urinal while patient in chair. Patient dropped urinal and slumped back into chair. Unresponsive at first. Rapid response team called. Now responsive, BP 82/48. Assisted into bed, placed in Trendelenburg. BP
recovered to 122/69.
--- NOTE | 2025-07-02 12:32 | PTCARENOTE ---
Patient voiding unmeasurable amounts. PVR=51ml. Dr. Covarrubias made aware of vasovagal episode, reports pt does not need wilder if voiding to under 100ml residual.
--- NOTE | 2025-07-02 13:42 | PN.CDI ---
CDI
- -
CDI:
Physician Documentation Request
Admit Date: 06/30/25 05:42
Dear Doctor Tyler,
Please review the following and provide your response in the progress notes.
Clinical Indicators:
Pt admitted with gross hematuria on Eliquis
Sodium labs are as below /Pt on IV Lasix 20 mg
Laboratory Tests
06/29/25 07/01/25 07/02/25
19:26 07:29 07:29
Sodium 134 L 130 L 128 L
07/02/25
:
Sodium 130 L
Based on the above, could you clarify in the progress notes, the appropriate diagnosis, if significant, that supports the above abnormalities and additional evaluation, monitoring and/or treatment rendered:
Hyponatremia
Abnormal lab value
Other ( please specify)
Use of terms such as suspected, likely, concern for, or probable (associated with a specific diagnosis that is being evaluated, monitored, or treated as if it exists) are acceptable and can be coded in the inpatient setting, when documented at the
time of discharge.
Thank you,
Ayaka Washburn RN
CDI Specialist
[place] [facility]
Please use your independent medical judgment in providing your response.
--- NOTE | 2025-07-02 13:48 | PN.CDI ---
CDI
- -
CDI:
Physician Documentation Request
Admit Date: 06/30/25 05:42
Dear Doctor Tyler,
Please review the following and provide your response in the progress notes.
Clinical Indicators:
Pt admitted with gross hematuria on Eliquis
Documented per H&P ' Gross Hematuria Coagulopathy on Eliquis... Hold Eliquis...'
Urology note 07/01, ' bph with hematuria on apixaban continue cbi hand irrigate clots ..'
Please clarify the relationship between these conditions:
Yes, _Gross hematuria __ is related to/associated with/exacerbated by Eliquis use ___.
No, _Gross hematuria __ is not related to/associated with/exacerbated by Eliquis use___ but it is due to ___. (Please specify)
Unable to determine
Use of terms such as suspected, likely, concern for, or probable (associated with a specific diagnosis that is being evaluated, monitored, or treated as if it exists) are acceptable and can be coded in the inpatient setting, when documented at the
time of discharge.
Thank you,
Ayaka Washburn RN
CDI Specialist
[facility]
Please use your independent medical judgment in providing your response.
--- NOTE | 2025-07-02 16:38 | W.PN.HOSP.TC ---
Today's Communication/Plan
-
Assessment / Plan
Assessment / Plan
NAD
Scleral Anicteric
MMM
No JVD
CTABL
RRR, S1/S2
Soft, NT, ND, BS+
Warm, Dry
AAOx3
Calm
Gross hematuria
Hold Eliquis
Continue CBI, per Uro plan for clamp on 07/02 at 0600
Follow urology recommendations
Follow hemoglobin
Transfuse if less than 7
PAF with with known history of VTE
Hold Eliquis
Monitor on telemetry
Continue Amio
Syncope, new
Likely vasovagal vs Orthostatic hypotension
Tele
Orthostatics
MOnitor Overnight
Trnasition IV lasix to PO lasix
2d echo to assess EF, valves, wall motion, also hx of amyloid unclear if cardiac involvement
-Echo from 6months ago, Stage 2DD, EF 62%, mild - moerate AR, Mild TR
Consult cards
Chronic HFpEF with bilateral pleural effusions (moderate/large left pleural effusion, moderate right pleural effusion)
PO lasix
Monitor volume status
If becoming more hypoxemic may require Thora for left-sided pleural effusion
Amyloid
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
Not an DESTINY, ?progressive CKD
Monitor UOP
Avoid Nephrotoxins and hypotension
Anticipated Discharge: Within 24 hours
Subjective/Interval History
-
Date of Service: July 02, 2025
Seen and examined. No new complaints. No acute overnight events.
Had a rapid response earlier today. Per report likely vasovagal. Occurred while sitting in bedside chair
Objective Data
-
Labs:
Laboratory Results
07/02/25 07/02/25
07:29 11:25
WBC 8.8 9.5
Hgb 15.8 15.9
Hct 46.5 46.7
Plt Count 235 249
Sodium 128 L 130 L
Potassium 4.0 4.0
Chloride 97 L 98
Carbon Dioxide 28 30
BUN 33 H 33 H
Creatinine 1.3 1.4 H
Glucose 113 H 108 H
Calcium 8.6 8.4
Vital Signs:
Vital Signs
Temp Pulse Resp BP Pulse Ox
98.1 F 67 18 115/60 97
07/02/25 15:57 07/02/25 15:57 07/02/25 15:57 07/02/25 15:57 07/02/25 15:57
I&O
07/01/25 07/02/25 07/03/25
06:59 06:59 06:59
Intake Total 720 / 720 1440 / 1440
Output Total 6375 / 6375 3450 / 3450 350 / 350
Balance -5655 / -5655 -2009 / -2009 -350 / -350
[2025-07-02] MEDS: ELAVIL 25 MG PO (21:03)
[2025-07-02] MEDS: ELAVIL 10 MG PO (21:03)
--- NOTE | 2025-07-02 21:59 | VATNOTE ---
Called by PCN to check IV site R arm. #20p RA Cep red warm swollen IV line d/cd ad advised PCN to apply heat and elevate.
[2025-07-03] VITALS (8 sets, daily range): BP systolic 109–137; BP diastolic 65–70; PULSE 84; BMI 26.3; BMI 26.4
--- NOTE | 2025-07-03 03:19 | PTCARENOTE ---
Pt agreed to wear CPAP. pox 90-93% room air. Respiratory notified.
[2025-07-03] MEDS: TYLENOL 650 MG PO ×2 (03:23→22:42)
--- NOTE | 2025-07-03 04:51 | PTCARENOTE ---
Pt could not tolerate CPAP. Per pt request, device removed.
--- NOTE | 2025-07-03 04:54 | PTCARENOTE ---
Pt voided 125ml migdalia color urine. Bladder scanned 79ml. Pt drank about 400ml water for this shift. Encouraged to increase fluids.
[2025-07-03] MEDS: MIRALAX 17 GRAMS PO (06:16)
[2025-07-03 07:15] LABS: Hematocrit 41.6 % (39.0-52.0); Hemoglobin 14.2 g/dL (13.0-18.0); Mean Corp Hgb Conc. 34.1 g/dL (33.0-37.0); Mean Corpuscular Volume 91.8 fL (80.0-94.0); Platelet Count 240 10^3/uL (130-400); Red Cell Dist. Width 13.4 % (11.5-14.5)
[2025-07-03 07:52] LABS: Blood Urea Nitrogen 35 mg/dl (9-20); Calcium 8.3 mg/dl (8.4-10.2); Carbon Dioxide 30 mmol/L (22-30); Chloride 98 mmol/L (98-107); Estimated Creatinine Clearance 45 ml/min; Glucose 103 mg/dl (70-99); Potassium 4.5 mmol/L (3.5-5.1); Sodium 129 mmol/L (135-145); eGFR 55.19
--- NOTE | 2025-07-03 08:26 | W.PN.URO.CBU ---
Today's Communication / Plan
-
per hospitaloist but encurage copious po intake
Assessment / Plan
-
bph with hematuria on apixaban clear today but light headed void ing well poor po itake bun 35 so ligt headed may be flomax which is clinically helping voiding but coud be dehydtation suggest ib=vr=f and monitor and last resort stop flomax
Diagnosis
-
Date of Service: July 03, 2025
-
Patient Diagnosis:
Post Op Day:
Patient Diagnosis:
Post Op Day:
Patient Diagnosis:
Post Op Day:
Patient Diagnosis:
BPH with slow stream obstructive sxs culminating in gross painless hematuria on apixaban
Post Op Day:
Subjective
-
voiding well but low bp possoibly dehydratiopssible flomax
Objective
-
Vital Signs
Temp Pulse Resp BP Pulse Ox
97.7 F 63 20 109/65 91
07/03/25 07:05 07/03/25 07:05 07/03/25 07:05 07/03/25 07:05 07/03/25 07:05
Intake and Output
07/02/25 07/03/25 07/04/25
06:59 06:59 06:59
Intake Total 1440 / 1440
Output Total 3450 / 3450 700 / 700 175 / 175
Balance -2009 / -2009 -700 / -700 -175 / -175
Intake:
Oral fluids 1440 / 1440
Output:
Urine, Voided 700 / 700 175 / 175
True Urine Output from CBI 3450 / 3450
Other:
How many times incontinent 1
MODERATE amount urine
Laboratory Results
07/03/25 06:46
07/03/25 06:46
Review of Systems
-
Constitutional: Fatigue
: No Symptoms
Physical Exam
-
General - well developed, well nourished, no acute distress
Chest - clear bilaterally
Abdomen - soft, non-tender, positive bowel sounds, no CVAT, no incisional pain or distention
Genitalia - normal
Rectal - normal
Skin - warm & dry with no rash
Neuro - AOx3, no motor deficits
Extremities - no clubbing, no cyanosis, no edema
Incision - clean, dry
Dressing - clean, dry, intact
Counseling
-
encourage po
Care Review
Data Reviewed
Discussed with: Hospitalist and Nursing
[2025-07-03] MEDS: NSS 500 IV (08:57)
[2025-07-03] MEDS: VALTREX 500 MG PO (09:00)
[2025-07-03] MEDS: PACERONE 200 MG PO (09:00)
[2025-07-03] MEDS: ELIQUIS 5 MG PO ×2 (09:00→19:55)
[2025-07-03] MEDS: PROSCAR 5 MG PO (09:00)
[2025-07-03] MEDS: LASIX 20 MG PO (09:00)
[2025-07-03] MEDS: LYRICA 50 MG PO (09:00)
--- NOTE | 2025-07-03 10:43 | CM ---
Met with pt bedside, no t ready for discharge today.
Plan is to return home [place] apartment at [facility].
Does not think he will need VN.
will transport home when ready for discharge.
--- NOTE | 2025-07-03 11:40 | CON.CAR ---
Addendum entered and electronically signed by Berhane White DO 07/03/25 16:29:
I saw and examined the patient.
The Safety Fire Boss's note was reviewed and I agree with the note.
Comment:
Plan:
Likely vasovagal syncope with the addition of finasteride and Flomax. Patient receiving IV fluids.
Likely resume diuretics next 24 hours
Would defer to urology if patient needs to continue with finasteride and Flomax as this could contribute to recurrent syncope.
Check echo given history of amyloidosis.
Remains in sinus on Eliquis for PAFib
pt was appreciative.
Addendum entered and electronically signed by Joselin Gilliam PA-C 07/03/25 16:19:
correction to below:
Patient is a 78-year-old male with past medical history of paroxysmal atrial fibrillation on chronic Eliquis, history of PE, GERD, hypertension, CKD, orthostatic hypotension, neuropathy. He had had echocardiogram which showed a stiff and thickened
left ventricle, and was worked up for amyloid including technetium pyrophosphate scan which was equivocal, however SPEP/UPEP were abnormal and he underwent bone marrow biopsy and was diagnosed with multiple myeloma. He subsequently was diagnosed
with AL amyloid and is followed by Dr. Dolan at [facility] and Dr. Padma Braxton and is on Darzalex. he has had bilateral pleural effusions requiring thoracenteses in the past. He presented with hematuria, Eliquis was held and he
was placed on CBI. He was started on finasteride and Flomax. Yesterday patiently reportedly had vasovagal episode, explained to assess syncope. Patient denies syncope and states he just felt weak when he was standing to urinate. He had positive
orthostatics yesterday. He is receiving IV fluid. Cardiology consulted for evaluation. Eliquis restarted this morning
Original Note:
Consultation
Consultation Request
Date/Time Consultation Performed: 07/03/25
Requesting Provider: Dr. Truong Scott
Performing Provider: Joselin Gilliam PA-C for Dr. White
Reason for Consultation: syncope
Medical History
-
Chief Complaint: hematuria
History of Present Illness:
Patient is a 78-year-old male with past medical history of paroxysmal atrial fibrillation on chronic Eliquis, history of PE, GERD, hypertension, CKD, orthostatic hypotension, neuropathy. He had had echocardiogram which showed a stiff and thickened
left ventricle, and was worked up for amyloid including technetium pyrophosphate scan which was negative, however SPEP/UPEP were abnormal and he underwent bone marrow biopsy and was diagnosed with multiple myeloma. He has had bilateral pleural
effusions requiring thoracenteses in the past. He presented with hematuria, Eliquis was held and he was placed on CBI. He was started on finasteride and Flomax. Yesterday patiently reportedly had vasovagal episode, explained to assess syncope.
Patient denies syncope and states he just felt weak when he was standing to urinate. He had positive orthostatics yesterday. He is receiving IV fluid. Cardiology consulted for evaluation. Eliquis restarted this morning
Past Medical history:
Pleural effusions requiring thoracenteses
History of B/L PE, left DVT s/p focal lytic therapy 09/2023
PAF
Chronic OAC with eliquis
History of HFpEF 12/2023 in setting of rapid AF
LVH
HTN
Hyperlipidemia
Possible neuropathy UE
peptic ulcer s/p EGD 02/05/24 with gastritis
GERD
Acute appendix inflammation that required appendectomy by Dr. Lowery 2021
Multiple myeloma, diagnosed 04/04/24 by [facility]
Past Medical History
Past Medical History: Other (in HPI)
Social History
Tobacco: Non-Smoker
Alcohol: None
Drug: None
Personal: (60 yrs!)
Living: With Family
Employment: Retired
Family History
Family History: Reviewed & Not Pertinent
Allergies / Home Medications
Allergy/AdvReac Type Severity Reaction Status Date / Time
No Known Allergies Allergy Verified 06/29/25 19:18
�Medication �Instructions �Recorded �Confirmed �Type
amiodarone 200 mg tablet 200 mg PO DAILY Arrhythmia #30 tabs 04/20/24 06/30/25 Rx
furosemide 20 mg tablet (Lasix) 20 mg PO DAILY 06/01/24 06/30/25 History
daratumumab 20 mg/mL intravenous 100 mg IV DIRECTED 01/08/25 06/30/25 History
solution
dexamethasone 20 mg tablet 20 mg PO MONTHLY 01/08/25 06/30/25 History
valacyclovir 500 mg tablet 500 mg PO DAILY 01/08/25 06/30/25 History
(Valtrex)
apixaban 5 mg tablet (Eliquis) 5 mg PO BID 01/27/25 06/30/25 History
amitriptyline 25 mg tablet 35 mg PO DAILY 04/22/25 06/30/25 History
pregabalin 75 mg capsule 75 mg PO DAILY 04/22/25 06/30/25 History
Review of Systems
-
History Source: Patient and Family
All other systems: Negative unless noted
Physical Exam
Vital Signs
Temp Pulse Resp BP Pulse Ox
97.7 F 63 20 109/65 91
07/03/25 07:05 07/03/25 07:05 07/03/25 07:05 07/03/25 07:05 07/03/25 07:05
Lab Results
07/03/25 06:46
07/03/25 06:46
Physical Exam
General: No Apparent Distress and Comfortable
HEENT: Normocephalic, Anicteric and Moist Mucous Membranes
Respiratory: Clear and Non Labored Respirations
Cardiac: S1/S2 and Regular Rhythm
GI: Soft, Non Tender, Non Distended and Normal Bowel Sounds
Musculoskeletal: No Clubbing, No Cyanosis and No Edema
Skin: Warm and Dry
Neuro: AO x 3
Impression / Plan
-
Primary security operations center operator: Dr. Tipton
Assessment:
Presentation with hematuria s/p CBI
Syncopal episode 07/02/2025
Orthostatic hypotension
Pleural effusions requiring thoracenteses
History of B/L PE, left DVT s/p focal lytic therapy 09/2023
PAF
Chronic OAC with eliquis
History of HFpEF 12/2023 in setting of rapid AF
LVH
HTN
Hyperlipidemia
Possible neuropathy UE
peptic ulcer s/p EGD 02/05/24 with gastritis
GERD
Acute appendix inflammation that required appendectomy by Dr. Lowery 2021
Multiple myeloma, diagnosed 04/04/24 by [facility]
Echo 01/17/2025: EF 62%, mild concentric LVH, stage II diastolic dysfunction, mild to moderate AR, mild TR, PAP 49 mmHg
Plan:
- Patient presented with hematuria, required CBI. Urology following. Eliquis resumed 07/03
- Yesterday, while patient attempting to stand to urinate, had episode of syncope. Patient denies syncope and reports he just felt weak.
- On review of telemetry, no arrhythmia noted to explain event. Remains sinus rhythm on amiodarone 200 mg daily. EKG sinus rhythm with lateral T wave abnormality, which appears stable compared to prior
- Creatinine up slightly 07/02-1.4, so possible component of dehydration contributing. Patient receiving 500 cc of IV fluid this morning. Patient was also started on Flomax this admission in addition to his home Lasix 20 mg daily.
- Orthostatic vital signs were + on 07/02, will repeat today. May be unable to tolerate Flomax
- Would monitor volume status closely with receiving IVF as patient has history of pleural effusions requiring thoracenteses on daily Lasix therapy
- Most recent echo from 12/2024 with results as above, reviewed with patient 07/03
- Discussed with nursing
Data Reviewed
-
EKG: Tracing Personally Visualized and interpreted
Medical Tests (Nuc Med, Echo etc): Report Reviewed by me
Labs: Labs Reviewed by me
Old Records: Reviewed
--- NOTE | 2025-07-03 12:20 | W.PN.HOSP.TC ---
Today's Communication/Plan
-
Assessment / Plan
Assessment / Plan
NAD
Scleral Anicteric
MMM
No JVD
CTABL
RRR, S1/S2
Soft, NT, ND, BS+
Warm, Dry
AAOx3
Calm
Gross hematuria
Hold Eliquis
Continue CBI, per Uro plan for clamp on 07/02 at 0600
Follow urology recommendations
Follow hemoglobin
Transfuse if less than 7
PAF with with known history of VTE
Resume Eliquis
Monitor on telemetry
Continue Amio
Syncope, new
Likely vasovagal vs Orthostatic hypotension
Tele
Orthostatics
IVF - 500cc over 10hours
-Monitor volume status
MOnitor Overnight
Trnasition IV lasix to PO lasix
May need to consider DC of flomax but at this time will conitnue
2d echo to assess EF, valves, wall motion, also hx of amyloid unclear if cardiac involvement
-Echo from 6months ago, Stage 2DD, EF 62%, mild - moerate AR, Mild TR
Consult cards
Chronic HFpEF with bilateral pleural effusions (moderate/large left pleural effusion, moderate right pleural effusion)
PO lasix
Monitor volume status
If becoming more hypoxemic may require Thora for left-sided pleural effusion
Amyloid
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
Will check new 2d echo
Not an DESTINY, ?progressive CKD
Monitor UOP
Avoid Nephrotoxins and hypotension
Anticipated Discharge: Within 24 hours
Subjective/Interval History
-
Date of Service: July 03, 2025
Seen and examined. No new complaints. No acute overnight events.
Objective Data
-
Labs:
Laboratory Results
07/03/25
06:46
WBC 7.7
Hgb 14.2
Hct 41.6
Plt Count 240
Sodium 129 L
Potassium 4.5
Chloride 98
Carbon Dioxide 30
BUN 35 H
Creatinine 1.3
Glucose 103 H
Calcium 8.3 L
Vital Signs:
Vital Signs
Temp Pulse Resp BP Pulse Ox
97.5 F 66 18 123/65 94
07/03/25 11:52 07/03/25 11:52 07/03/25 11:52 07/03/25 11:52 07/03/25 11:52
I&O
07/02/25 07/03/25 07/04/25
06:59 06:59 06:59
Intake Total 1440 / 1440 480 / 480
Output Total 3450 / 3450 700 / 700 550 / 550
Balance -2009 / -2009 - / -700 - / -
[2025-07-03] MEDS: FLOMAX 0.4 MG PO (13:16)
--- NOTE | 2025-07-03 17:20 | TRANSFER ---
pt arrived from [facility] via stretcher accompanied by staff. pt ambulated from stretcher to bed with standby assist. pt AAOx3, VSS, no complaints at this time. POC ongoing.
[2025-07-03] MEDS: NSS IV (18:18)
[2025-07-03] MEDS: ELAVIL 10 MG PO (19:55)
[2025-07-03] MEDS: ELAVIL 25 MG PO (19:56)
[2025-07-03] MEDS: SENOKOT-S PO (21:36)
[2025-07-03] MEDS: COLACE 100 MG PO (21:37)
[2025-07-04 03:56] VITALS: BP 99/63
[2025-07-04 05:19] VITALS: BMI 26.4
[2025-07-04 07:28] LABS: Hematocrit 41.2 % (39.0-52.0); Hemoglobin 14.2 g/dL (13.0-18.0); Mean Corp Hgb Conc. 34.5 g/dL (33.0-37.0); Mean Corpuscular Volume 91.6 fL (80.0-94.0); Platelet Count 243 10^3/uL (130-400); Red Cell Dist. Width 13.3 % (11.5-14.5)
[2025-07-04 07:43] VITALS: BP 128/69
[2025-07-04] MEDS: COLACE 100 MG PO ×2 (08:29→21:40)
[2025-07-04] MEDS: VALTREX 500 MG PO (08:29)
[2025-07-04] MEDS: ELIQUIS 5 MG PO ×2 (08:29→21:40)
[2025-07-04] MEDS: SENOKOT-S 1 TABLET PO ×2 (08:29→21:40)
[2025-07-04] MEDS: PACERONE 200 MG PO (08:29)
[2025-07-04] MEDS: PROSCAR 5 MG PO (08:30)
[2025-07-04] MEDS: LYRICA 75 MG PO (08:32)
[2025-07-04 09:15] LABS: Blood Urea Nitrogen 30 mg/dl (9-20); Calcium 8.3 mg/dl (8.4-10.2); Carbon Dioxide 27 mmol/L (22-30); Chloride 100 mmol/L (98-107); Estimated Creatinine Clearance 54 ml/min; Glucose 86 mg/dl (70-99); Potassium 4.4 mmol/L (3.5-5.1); Sodium 127 mmol/L (135-145); eGFR > 60.00
[2025-07-04] MEDS: LASIX 20 MG PO (09:35)
--- NOTE | 2025-07-04 11:16 | W.PN.URO.CBU ---
Today's Communication / Plan
-
per hodpitalist but urologically rady for d/
Assessment / Plan
-
bph with hematuria on apixaban clear today and voiding to comletion d/c planning per hos[pitalist
Diagnosis
-
Date of Service: July 04, 2025
-
Patient Diagnosis:
Post Op Day:
Patient Diagnosis:
Post Op Day:
Patient Diagnosis:
Post Op Day:
Patient Diagnosis:
Post Op Day:
Patient Diagnosis:
BPH with slow stream obstructive sxs culminating in gross painless hematuria on apixaban
Post Op Day:
Subjective
-
voiding well not lightheaded no hematuria
Objective
-
Vital Signs
Temp Pulse Resp BP Pulse Ox
97.5 F 64 18 128/69 98
07/04/25 07:43 07/04/25 08:29 07/04/25 07:43 07/04/25 08:29 07/04/25 07:43
Intake and Output
07/03/25 07/04/25 07/05/25
06:59 06:59 06:59
Intake Total 1540 / 1540
Output Total 700 / 700 975 / 975
Balance -700 / -700 565 / 565
Intake:
Oral fluids 1540 / 1540
Output:
Urine, Voided 700 / 700 975 / 975
Other:
How many times incontinent 1
MODERATE amount urine
Laboratory Results
07/04/25 07:19
07/04/25 07:19
Review of Systems
-
: No Symptoms
Physical Exam
-
General - well developed, well nourished, no acute distress
Chest - clear bilaterally
Abdomen - soft, non-tender, positive bowel sounds, no CVAT, no incisional pain or distention
Genitalia - normal
Rectal - normal
Skin - warm & dry with no rash
Neuro - AOx3, no motor deficits
Extremities - no clubbing, no cyanosis, no edema
Incision - clean, dry
Dressing - clean, dry, intact
Counseling
-
per hospitalist
Care Review
Data Reviewed
Discussed with: Hospitalist
[2025-07-04] MEDS: MIRALAX 17 GRAMS PO (12:10)
--- NOTE | 2025-07-04 12:58 | CM ---
IMM given and placed on chart. Anticipating DC tomorrow
Plan: Home with no needs
--- NOTE | 2025-07-04 13:02 | W.PN.HOSP.TC ---
Today's Communication/Plan
-
stop Lasix and tamsulosin
follow BMP
urine Osm and Urine NA
Assessment / Plan
Assessment / Plan
80yo M with PMHX of insomnia, Afib on ELiquis, CHF, neuropathy came with hematuria thought to be 2/2 BPH, completed CBI. Also had episode of syncope 2/2 vaso-vagal hypotenasion as per rn clinical documentation specialist. Developed hyponatremia
A/P:
#Hematuria
resolved
s/p CBI
Urology will follow as ouitpatient
#Syncope
most likely vaso-vagal
no arrhythmia on telemetry
Echo
Card consult
holding Tamsulosin
#Hyponatremia
ho;ld lAsix and tamsulosin as suspect hypotension-driven
probably 2/2 hypotension
check UOsm, Landy
follow BMP
#Moderate/large left sided pleural effusion
#moderate right pleural effusion
#AL amyloid
#Myultiple myeloma
followed by Dr. Dolan at [facility] and Dr. Padma Braxton and is on Darzalex.
history of pleural effusions requiring thoracenteses on daily Lasix therapy
#PAroxysmal Afib
#Chronic HFpEF
cont home meds
DVT ppx ELiquis
Full code
I have spent at least 55min reviewing chart, test results, communication with conusltants and providing direct patient care
Anticipated Discharge: Within 24 hours
Subjective/Interval History
-
Date of Service: July 04, 2025
Objective Data
-
Labs:
Laboratory Results
07/04/25
07:19
WBC 6.5
Hgb 14.2
Hct 41.2
Plt Count 243
Sodium 127 L
Potassium 4.4
Chloride 100
Carbon Dioxide 27
BUN 30 H
Creatinine 1.1
Glucose 86
Calcium 8.3 L
Vital Signs:
Vital Signs
Temp Pulse Resp BP Pulse Ox
97.5 F 64 18 128/69 98
07/04/25 07:43 07/04/25 08:29 07/04/25 07:43 07/04/25 08:29 07/04/25 07:43
I&O
07/03/25 07/04/25 07/05/25
06:59 06:59 06:59
Intake Total 1540 / 1540
Output Total 700 / 700 975 / 975
Balance -700 / -700 565 / 565
Review of Systems
-
History Source: Patient
All other systems: Reviewed and negative
Physical Exam
-
General: No Apparent Distress
HEENT: Normocephalic
Cardiac: Regular Rhythm
GI: Soft, Nontender and Nondistended
Psych: Calm
[2025-07-04 15:19] VITALS: BP 121/65
--- NOTE | 2025-07-04 16:56 | W.PN.CARDCBS ---
Today's Communication / Plan
-
Seems improved. Would recommend remaining off Lasix as outpatient and taking 20 mg as needed for weight gain. I suspect ultimately he may need 20 mg 3 times a week but for now I would remain off the Lasix.
He remains in sinus rhythm. Continue amiodarone and Eliquis.
Increase activity.
Blood pressure is currently stable.
Impression / Plan
-
Primary youth career specialist: Dr. Tipton
Assessment:
Presentation with hematuria s/p CBI
Syncopal episode 07/02/2025
Orthostatic hypotension
Pleural effusions requiring thoracenteses
History of B/L PE, left DVT s/p focal lytic therapy 09/2023
PAF
Chronic OAC with eliquis
History of HFpEF 12/2023 in setting of rapid AF
LVH
HTN
Hyperlipidemia
Possible neuropathy UE
peptic ulcer s/p EGD 02/05/24 with gastritis
GERD
Acute appendix inflammation that required appendectomy by Dr. Lowery 2021
Multiple myeloma, diagnosed 04/04/24 by [facility]
Echo 01/17/2025: EF 62%, mild concentric LVH, stage II diastolic dysfunction, mild to moderate AR, mild TR, PAP 49 mmHg
Plan:
-Overall seems improved. No new syncope. Possibly a combination of Flomax and dehydration.
-Creatinine is overall improved. For now I would likely use Lasix as needed with this episode. Would have him follow his weight closely and use 20 mg as needed for 2 pound weight gain. He is at high risk for recurrent pleural effusions with his
history of chronic heart failure with preserved ejection fraction and AL amyloid.
- For echo today.
- He remains in sinus rhythm. Continue amiodarone and Eliquis.
- Discussed with nursing
Progress Note - [employer]
Subjective
Date of Service: July 04, 2025
Feels better no further episodes of syncope. Remains in sinus rhythm. Urine stream is stable.
Objective
Labs:
07/04/25 07:19
07/04/25 07:19
Labs
Hgb 14.2 g/dL (13.0-18.0) 07/04/25 07:19
Hct 41.2 % (39.0-52.0) 07/04/25 07:19
Plt Count 243 10^3/uL (130-400) 07/04/25 07:19
PT 18.8 Sec (11.4-14.6) H 07/01/25 07:29
INR 1.55 07/01/25 07:29
APTT 39.4 Sec (23.4-35.0) H 07/01/25 07:29
Sodium 127 mmol/L (135-145) L 07/04/25 07:19
Potassium 4.4 mmol/L (3.5-5.1) 07/04/25 07:19
BUN 30 mg/dl (9-20) H 07/04/25 07:19
Creatinine 1.1 mg/dL (0.7-1.3) 07/04/25 07:19
Glucose 86 mg/dl (70-99) 07/04/25 07:19
Vital Signs and I&O:
Vital Signs
Temp Pulse Resp BP Pulse Ox
97.8 F 66 20 121/65 95
07/04/25 15:19 07/04/25 15:19 07/04/25 15:19 07/04/25 15:19 07/04/25 15:19
Vital Signs
Temp Pulse Resp BP Pulse Ox
97.8 F 66 20 121/65 95
07/04/25 15:19 07/04/25 15:19 07/04/25 15:19 07/04/25 15:19 07/04/25 15:19
Intake & Output
07/02/25 07/03/25 07/04/25 07/05/25
06:59 06:59 06:59 06:59
Intake Total 1440 / 1440 1540 / 1540
Output Total 3450 / 3450 700 / 700 975 / 975
Balance -2009 -700 / 700 565 / 565
Physical Exam
Physical Exam
GEN: No distress, awake, Ox3
HEENT: supple, anicteric, mmm
LUNGS: CTA, no wheezes/rales
CV: Reg, S1/S2, 1/6 syst LSB, no gallop
ABD: soft, BS+, NT/ND
EXT: trace edema
NEURO: Gross non-focal
SKIN: No rash
[2025-07-04 19:52] VITALS: BP 115/71
[2025-07-04] MEDS: ELAVIL 10 MG PO (21:40)
[2025-07-04] MEDS: ELAVIL 25 MG PO (21:40)
[2025-07-04 23:55] VITALS: BP 125/71
[2025-07-05 03:25] VITALS: BP 98/61
[2025-07-05 06:00] VITALS: BMI 26.2
[2025-07-05 07:32] VITALS: BP 126/71
[2025-07-05] MEDS: MIRALAX 17 GRAMS PO (08:20)
[2025-07-05 08:52] LABS: Hematocrit 43.4 % (39.0-52.0); Hemoglobin 14.5 g/dL (13.0-18.0); Mean Corp Hgb Conc. 33.4 g/dL (33.0-37.0); Mean Corpuscular Volume 94.6 fL (80.0-94.0); Platelet Count 267 10^3/uL (130-400); Red Cell Dist. Width 13.3 % (11.5-14.5)
[2025-07-05 09:26] LABS: Blood Urea Nitrogen 30 mg/dl (9-20); Calcium 8.4 mg/dl (8.4-10.2); Carbon Dioxide 29 mmol/L (22-30); Chloride 99 mmol/L (98-107); Estimated Creatinine Clearance 49 ml/min; Glucose 80 mg/dl (70-99); Potassium 5.1 mmol/L (3.5-5.1); Sodium 132 mmol/L (135-145); eGFR > 60.00
--- NOTE | 2025-07-05 09:53 | W.PN.HOSP.TC ---
Today's Communication/Plan
-
dc
Assessment / Plan
Assessment / Plan
80yo M with PMHX of insomnia, Afib on ELiquis, CHF, neuropathy came with hematuria thought to be 2/2 BPH, completed CBI. Also had episode of syncope 2/2 vaso-vagal hypotenasion as per consumer educator. Developed hyponatremia due to overdiuresis that was
corrected while holding off lasix. chronic b/l pleural effusions asymptomatic - defer mgmt to outpatient cardiology and Pulm (Patient has appt with coming up). Complained of straining when urinating - will start Tamsulosin. Medically
stable to be d/c home. Was able to ambulate in the hallway without dizziness
A/P:
#Hematuria
resolved
s/p CBI
Urology will follow as outpatient
#Syncope
most likely vaso-vagal
no arrhythmia on telemetry
Echo
Card consult
holding Tamsulosin
#Hyponatremia
ho;ld lAsix and tamsulosin as suspect hypotension-driven
probably 2/2 hypotension
check UOsm, [facility]
follow BMP
#Moderate/large left sided pleural effusion
#moderate right pleural effusion
#AL amyloid
#Multiple myeloma
followed by Dr. Dolan at [facility] and Dr. Padma Braxton and is on Darzalex.
history of pleural effusions requiring thoracenteses on daily Lasix therapy
#Paroxysmal Afib
#Chronic HFpEF
cont home meds
DVT ppx ELiquis
Full code
I have spent at least 36min reviewing chart, test results, communication with conusltants and providing direct patient care
Anticipated Discharge: Today
Subjective/Interval History
-
Date of Service: July 05, 2025
Objective Data
-
Labs:
Laboratory Results
07/05/25
08:00
WBC 5.8
Hgb 14.5
Hct 43.4
Plt Count 267
Sodium 132 L
Potassium 5.1
Chloride 99
Carbon Dioxide 29
BUN 30 H
Creatinine 1.2
Glucose 80
Calcium 8.4
Vital Signs:
Vital Signs
Temp Pulse Resp BP Pulse Ox
98.0 F 69 18 126/71 92
07/05/25 07:32 07/05/25 07:32 07/05/25 07:32 07/05/25 07:32 07/05/25 07:32
I&O
07/04/25 07/05/25 07/06/25
06:59 06:59 06:59
Intake Total 1540 / 1540 1750 / 1750
Output Total 975 / 975 1025 / 1025
Balance 565 / 565 725 / 725
Review of Systems
-
History Source: Patient
All other systems: Reviewed and negative
Physical Exam
-
General: No Apparent Distress
HEENT: Normocephalic
GI: Soft, Nontender and Nondistended
Neuro: Awake, Alert, Oriented and AO x 3
Psych: Calm
--- NOTE | 2025-07-05 09:59 | W.DCSUMMARY ---
Discharge Summary
Discharge Data
Date of Admission: 06/30/25
Date of Discharge: 07/05/25
-
Pending Results: No
Hospital Course
80yo M with PMHX of insomnia, Afib on ELiquis, CHF, neuropathy came with hematuria thought to be 2/2 BPH, completed CBI. Also had episode of syncope 2/2 vaso-vagal hypotenasion as per physical fitness trainer. Developed hyponatremia due to overdiuresis that was
corrected while holding off lasix. chronic b/l pleural effusions asymptomatic - defer mgmt to outpatient cardiology and Pulm (Patient has appt with coming up). Complained of straining when urinating - will start Tamsulosin. Medically
stable to be d/c home. Was able to ambulate in the hallway without dizziness
I have spent at least 36min reviewing chart, test results, communication with conusltants and providing direct patient care
Patient was managed for:
#Hematuria
#BPH
#Syncope
#Hyponatremia
#Moderate/large left sided pleural effusion
#moderate right pleural effusion
#AL amyloid
#Multiple myeloma
#Paroxysmal Afib
#Chronic HFpEF
Discharge Plan
-
Patient Disposition: Home (Routine Discharge)
Discharge Diagnosis/Procedures: hematuria
Diet: Low Cholesterol
Activity: As tolerated
Driving Restrictions: As prior to admission
Referrals:
Dayna Chirinos MD [Active, Pulmonary Medicine] - in less than 1 week
Jeffery Bustamante MD [Family Provider, Family Practice]
Anthony Covarrubias MD [Active, Urology]
Referral Note: follow up dr covarrubias [phone] to schedule urology appt with in 6 weeks sooner if wilder inplace at discharge
Hoang Tipton MD [Active, Cardiology] - in less than 1 week
Prescriptions:
New
tamsulosin 0.4 mg Capsule
0.4 mg PO DAILY Qty: 30 0RF
finasteride 5 mg Tablet
5 mg PO DAILY Qty: 30 0RF
Continued
amiodarone 200 mg tablet
200 mg PO DAILY Qty: 30 0RF
valacyclovir [Valtrex] 500 mg Tablet
500 mg PO DAILY
daratumumab 20 mg/mL Solution
100 mg IV DIRECTED
dexamethasone 20 mg Tablet
20 mg PO MONTHLY
Eliquis 5 mg Tablet
5 mg PO BID
pregabalin 75 mg Capsule
75 mg PO DAILY
amitriptyline 25 mg Tablet
35 mg PO DAILY
Rx Instructions:
takes a 25mg and a 10mg
Changed
furosemide [Lasix] 20 mg tablet
20 mg PO DAILYPRN PRN (Reason: if overnight weight gain >3lbs) Qty: 0 0RF
Discharge Orders:
Discharge Patient (As Directed); Ordered 07/05/25
Ordered By: Paul Cardenas
Discharge Date and Time
Print Language: MONTENEGRIN
--- NOTE | 2025-07-05 10:17 | CM ---
Patient has been medically cleared for discharge to home with no additional skilled services. will transport home.
[2025-07-05] MEDS: VALTREX 500 MG PO (10:20)
[2025-07-05] MEDS: PACERONE 200 MG PO (10:20)
[2025-07-05] MEDS: PROSCAR 5 MG PO (10:20)
[2025-07-05] MEDS: ELIQUIS 5 MG PO (10:20)
[2025-07-05] MEDS: SENOKOT-S 1 TABLET PO (10:20)
[2025-07-05] MEDS: COLACE 100 MG PO (10:20)
[2025-07-05] MEDS: FLOMAX 0.4 MG PO (10:20)
[2025-07-05] MEDS: LYRICA 50 MG PO (10:32)
[2025-07-05 11:15] VITALS: BP 116/61
--- NOTE | 2025-07-05 11:26 | W.PN.URO.CBU ---
Today's Communication / Plan
-
Stable for discharge from [facility]
Continue finasteride
Follow up with Dr. Covarrubias outpatient
Assessment / Plan
-
bph with hematuria on apixaban
clear today
voiding well off tamsulosin after this may have contributed to syncope
Stable for discharge from [facility]
Continue finasteride
Follow up with Dr. Covarrubias outpatient
Diagnosis
-
Date of Service: July 05, 2025
-
Patient Diagnosis:
Post Op Day:
Patient Diagnosis:
Post Op Day:
Patient Diagnosis:
Post Op Day:
Patient Diagnosis:
Post Op Day:
Patient Diagnosis:
Post Op Day:
Patient Diagnosis:
BPH with slow stream obstructive sxs culminating in gross painless hematuria on apixaban
Post Op Day:
Subjective
-
voiding well off tamsulosin
some frequency
Objective
-
Vital Signs
Temp Pulse Resp BP Pulse Ox
98.3 F 66 18 116/61 95
07/05/25 11:15 07/05/25 11:15 07/05/25 11:15 07/05/25 11:15 07/05/25 11:15
Intake and Output
07/04/25 07/05/25 07/06/25
06:59 06:59 06:59
Intake Total 1540 / 1540 1750 / 1750 720 / 720
Output Total 975 / 975 1025 / 1025 600 / 600
Balance 565 / 565 725 / 725 120 / 120
Intake:
Oral fluids 1540 / 1540 1750 / 1750 720 / 720
Output:
Urine, Voided 975 / 975 1025 / 1025 600 / 600
Other:
Number of approximated LARGE 2
amounts of urine
Laboratory Results
07/05/25 08:00
07/05/25 08:00
Physical Exam
-
General - well developed, well nourished, no acute distress
Chest - clear
--- NOTE | 2025-07-05 12:06 | PTCARENOTE ---
Patient offered mouth care by student nurse and RN. Patient refused at this time.
== END 2025-07-05 12:45 | disposition home or self-care (01) | DRG 813 ==
LOC: 4 EAST ACU 05:42
PROVIDERS: Hospitalist; Student in an Organized Health Care Education/Training Program; ADMITTING PHYSICIAN Hospitalist; ATTENDING PHYSICIAN Internal Medicine; CONSULT PHYSICIAN Nuclear Medicine Nuclear Cardiology; CONSULT PHYSICIAN Specialist; EMERGENCY PHYSICIAN Student in an Organized Health Care Education/Training Program; FAMILY PHYSICIAN Family Medicine
PROC: 5A09357 Assistance with Respiratory Ventilation, Less than 24 Consecutive Hours, Continuous Positive Airway Pressure (ICD-10-PCS; 2025-07-03)
DX: D68.32 Hemorrhagic disorder due to extrinsic circulating anticoagulants (principal); E85.4 Organ-limited amyloidosis; I50.32 Chronic diastolic (congestive) heart failure; I13.0 Hypertensive heart and chronic kidney disease with heart failure and stage 1 through stage 4 chronic kidney disease, or unspecified chronic kidney disease; E87.1 Hypo-osmolality and hyponatremia; C90.00 Multiple myeloma not having achieved remission; N17.9 Acute kidney failure, unspecified; N40.1 Benign prostatic hyperplasia with lower urinary tract symptoms; R31.0 Gross hematuria; T45.515A Adverse effect of anticoagulants, initial encounter; I48.0 Paroxysmal atrial fibrillation; N18.30 Chronic kidney disease, stage 3 unspecified; Z79.899 Other long term (current) drug therapy; Z86.711 Personal history of pulmonary embolism; G47.33 Obstructive sleep apnea (adult) (pediatric); J98.4 Other disorders of lung; K21.9 Gastro-esophageal reflux disease without esophagitis; Z79.01 Long term (current) use of anticoagulants; Z86.718 Personal history of other venous thrombosis and embolism
CPT/HCPCS: 71046; 74176; 80048; 80053; 81003; 81015; 82570; 82962; 83605; 83880; 83935; 84300; 85025; 85027; 85610; 85730; 87077; 87086; 87186; 93005; 93306; 99285

== ENCOUNTER → 2025-07-18 12:52 | Outpatient (REF) | payer MEDICARE, OTHER, SELFPAY | LOC: RAD 12:52 | PROVIDERS: ATTENDING PHYSICIAN Internal Medicine Cardiovascular Disease; FAMILY PHYSICIAN Family Medicine; OTHER PHYSICIAN Nurse Practitioner Family; REFERRING PHYSICIAN Internal Medicine Critical Care Medicine | DX: J90 Pleural effusion, not elsewhere classified (principal); K59.00 Constipation, unspecified | CPT/HCPCS: 71046; 74019 ==

== ENCOUNTER → 2025-07-29 08:58 | Outpatient (REF) | payer MEDICARE, OTHER, SELFPAY ==
[2025-07-29 09:12] VITALS: BP 136/85; BP_SYST 65
[2025-07-29 09:45] VITALS: BP 110/69; BP_SYST 59
== END ==
LOC: RADI 08:58
PROVIDERS: ATTENDING PHYSICIAN Internal Medicine Critical Care Medicine; FAMILY PHYSICIAN Family Medicine
DX: J90 Pleural effusion, not elsewhere classified (principal)
CPT/HCPCS: 32555; 71045

== ENCOUNTER → 2025-08-12 08:51 | Outpatient (REF) | payer MEDICARE, OTHER, SELFPAY ==
[2025-08-12 09:08] VITALS: BP 126/88; BP_SYST 73
[2025-08-12 09:35] VITALS: BP 119/72; BP_SYST 61
== END ==
LOC: RADI 08:51
PROVIDERS: ATTENDING PHYSICIAN Internal Medicine Critical Care Medicine; FAMILY PHYSICIAN Family Medicine
DX: J90 Pleural effusion, not elsewhere classified (principal)
CPT/HCPCS: 32555; 71045

== ENCOUNTER → 2025-08-26 08:21 | Outpatient (REF) | payer MEDICARE, OTHER, SELFPAY ==
[2025-08-26 08:41] VITALS: BP 135/80; BP_SYST 65
[2025-08-26 09:08] VITALS: BP 112/68; BP_SYST 60
== END ==
LOC: RADI 08:21
PROVIDERS: ATTENDING PHYSICIAN Internal Medicine Critical Care Medicine; FAMILY PHYSICIAN Family Medicine
DX: J90 Pleural effusion, not elsewhere classified (principal)
CPT/HCPCS: 32555; 71045